=== PATIENT | male | born 1945 | race Caucasian/White ===

== ENCOUNTER 2017-02-20 15:28 | Observation (INO) | payer MEDICARE, OTHER ==
[2017-02-20] MEDS ORDERED: NITROGLYCERIN OINT 1 INCH/GM PACKET TOPICAL STA (15:49)
[2017-02-20] MEDS ORDERED: ASPIRIN 81 MG PO STA (15:49)
--- NOTE | 2017-02-20 15:54 | ED ---
General Adult HPI - General Chief complaint: Chest Pain Stated complaint: SOB/Chest heaviness Time Seen by Provider: 02/20/17 15:30 Source: patient, RN notes reviewed Mode of arrival: wheelchair Limitations: no limitations - History of Present Illness Initial comments: This is a 71-year-old male who presents to the emergency department complaining of intermittent chest pain with shortness of breath over the last month. Patient states it doesn't appear to come on with exertion however he continues to get it and he becomes quite short of breath. Patient states at times lying flat seems to make it worse. Patient denies any diaphoresis patient denies any nausea vomiting. Patient denies any recent fever chills or cough. Patient states he has been on some recent travel but he wears compression stockings and has no calf pain or any swelling or edema in his legs. Patient denies any abdominal pain patient denies nausea vomiting diarrhea. Patient denies any patient denies numbness weakness. Patient denies lightheadedness dizziness or syncopal episode. - Related Data Home Medications Medication Instructions Recorded Confirmed Gabapentin [Neurontin] 300 mg PO DAILY 07/05/14 02/20/17 Pantoprazole Sodium 40 mg PO HS 07/05/14 02/20/17 Albuterol Inhaler [Ventolin Hfa 1 - 2 puff INHALATION RT-QID PRN 02/20/17 Inhaler] Atorvastatin Calcium [Lipitor] 10 mg PO HS 02/20/17 02/20/17 Cholecalciferol [Vitamin D3] 5,000 unit PO DAILY 02/20/17 02/20/17 Fluticasone Nasal [place] [Flonase 1 spray EA NOSTRIL BID PRN 02/20/17 02/20/17 Nasal [place]] Metoprolol Succinate [Toprol XL] 50 mg PO DAILY 02/20/17 02/20/17 Rivaroxaban [Xarelto] 15 mg PO HS 02/20/17 02/20/17 Timolol 0.5% Ophth Soln [Timoptic 1 drop BOTH EYES BID 02/20/17 02/20/17 0.5% Ophth Soln] glipiZIDE [Glucotrol] 5 mg PO AC-BID 02/20/17 02/20/17 Allergies Allergy/AdvReac Type Severity Reaction Status Date / Time codeine Allergy PROBLEMS Verified 02/20/17 16:13 WITH BLADDER Review of Systems ROS Statement: Those systems with pertinent positive or pertinent negative responses have been documented in the HPI. ROS Other: All systems not noted in ROS Statement are negative. Past Medical History Past Medical History: Diabetes Mellitus, GERD/Reflux, Hyperlipidemia Additional Past Medical History / Comment(s): NEUROPATHY History of Any Multi-Drug Resistant Organisms: None Reported Past Surgical History: Hernia Repair, Joint Replacement, Orthopedic Surgery Additional Past Surgical History / Comment(s): NECK SURGERY X4, TOTAL LEFT KNEE , CTR BOTH HANDS Past Anesthesia/Blood Transfusion Reactions: No Reported Reaction Past Psychological History: No Psychological Hx Reported Smoking Status: Former smoker General Exam - General Exam Comments Initial Comments: GENERAL: Patient is well-developed and well-nourished. Patient is nontoxic and well- hydrated and is in mild distress. ENT: Neck is soft and supple. No significant lymphadenopathy is noted. Oropharynx is clear. Moist mucous membranes. Neck has full range of motion without eliciting any pain. EYES: The sclera were anicteric and conjunctiva were pink and moist. Extraocular movements were intact and pupils were equal round and reactive to light. Eyelids were unremarkable. PULMONARY: Unlabored respirations. Good breath sounds bilaterally. No audible rales rhonchi or wheezing was noted. CARDIOVASCULAR: There is a regular rate and rhythm without any murmurs gallops or rubs. ABDOMEN: Soft and nontender with normal bowel sounds. No palpable organomegaly was noted. There is no palpable pulsatile mass. SKIN: Skin is clear with no lesions or rashes and otherwise unremarkable. NEUROLOGIC: Patient is alert and oriented x3. Cranial nerves II through XII are grossly intact. Motor and sensory are also intact. Normal speech, volume and content. Symmetrical smile. MUSCULOSKELETAL: Normal extremities with adequate strength and full range of motion. No lower extremity swelling or edema. No calf tenderness. LYMPHATICS: No significant lymphadenopathy is noted PSYCHIATRIC: Normal psychiatric evaluation. Limitations: no limitations Course Vital Signs 02/20/17 02/20/17 15:29 16:32 Temperature 97.5 F L Pulse Rate 68 79 Respiratory 18 20 Rate Blood Pressure 147/87 142/84 O2 Sat by Pulse 95 98 Oximetry Medical Decision Making - Medical Decision Making EKG shows a sinus rhythm with occasional PVC at 60 bpm FL interval is 196 QRS is 94 QT interval 412 QTC is 438. Patient's EKG shows no ST segment elevation or depression. Chest x-ray shows no acute abnormality I spoke with Dr. Lewis he wanted me to admit the patient admitted the patient wrote admitting orders. I consult cardiology. - Lab Data Result diagrams: 02/20/17 16:05 02/20/17 16:05 Lab Results 02/20/17 02/20/17 02/20/17 Range/Units 16:05 16:05 16:05 WBC 5.5 (3.8-10.6) k/uL RBC 5.50 (4.30-5.90) m/uL Hgb 16.8 (13.0-17.5) gm/dL Hct 48.4 (39.0-53.0) % MCV 88.0 (80.0-100.0) fL MCH 30.6 (25.0-35.0) pg MCHC 34.8 (31.0-37.0) g/dL RDW 13.7 (11.5-15.5) % Plt Count 179 (150-450) k/uL Neutrophils % 56 % Lymphocytes % 31 % Monocytes % 8 % Eosinophils % 2 % Basophils % 1 % Neutrophils # 3.1 (1.3-7.7) k/uL Lymphocytes # 1.7 (1.0-4.8) k/uL Monocytes # 0.4 (0-1.0) k/uL Eosinophils # 0.1 (0-0.7) k/uL Basophils # 0.0 (0-0.2) k/uL PT (9.0-12.0) sec INR (<1.2) APTT (22.0-30.0) sec Sodium 140 (137-145) mmol/L Potassium 4.0 (3.5-5.1) mmol/L Chloride 104 (98-107) mmol/L Carbon Dioxide 23 (22-30) mmol/L Anion Gap 13 mmol/L BUN 18 (9-20) mg/dL Creatinine 1.30 H (0.66-1.25) mg/dL Est GFR (MDRD) Af Amer >60 (>60 ml/min/1.73 sqM) Est GFR (MDRD) Non-Af 54 (>60 ml/min/1.73 sqM) Glucose 92 (74-99) mg/dL Calcium 9.7 (8.4-10.2) mg/dL Magnesium 1.7 (1.6-2.3) mg/dL Total Bilirubin 0.9 (0.2-1.3) mg/dL AST 31 (17-59) U/L ALT 37 (21-72) U/L Alkaline Phosphatase 61 (38-126) U/L Total Creatine Kinase 182 H (55-170) U/L CK-MB (CK-2) 1.8 (0.0-2.4) ng/mL CK-MB (CK-2) Rel Index 1.0 Troponin I <0.012 (0.000-0.034) ng/mL Total Protein 7.4 (6.3-8.2) g/dL Albumin 4.4 (3.5-5.0) g/dL 02/20/17 Range/Units 16:05 WBC (3.8-10.6) k/uL RBC (4.30-5.90) m/uL Hgb (13.0-17.5) gm/dL Hct (39.0-53.0) % MCV (80.0-100.0) fL MCH (25.0-35.0) pg MCHC (31.0-37.0) g/dL RDW (11.5-15.5) % Plt Count (150-450) k/uL Neutrophils % % Lymphocytes % % Monocytes % % Eosinophils % % Basophils % % Neutrophils # (1.3-7.7) k/uL Lymphocytes # (1.0-4.8) k/uL Monocytes # (0-1.0) k/uL Eosinophils # (0-0.7) k/uL Basophils # (0-0.2) k/uL PT 12.1 H (9.0-12.0) sec INR 1.2 H (<1.2) APTT 27.7 (22.0-30.0) sec Sodium (137-145) mmol/L Potassium (3.5-5.1) mmol/L Chloride (98-107) mmol/L Carbon Dioxide (22-30) mmol/L Anion Gap mmol/L BUN (9-20) mg/dL Creatinine (0.66-1.25) mg/dL Est GFR (MDRD) Af Amer (>60 ml/min/1.73 sqM) Est GFR (MDRD) Non-Af (>60 ml/min/1.73 sqM) Glucose (74-99) mg/dL Calcium (8.4-10.2) mg/dL Magnesium (1.6-2.3) mg/dL Total Bilirubin (0.2-1.3) mg/dL AST (17-59) U/L ALT (21-72) U/L Alkaline Phosphatase (38-126) U/L Total Creatine Kinase (55-170) U/L CK-MB (CK-2) (0.0-2.4) ng/mL CK-MB (CK-2) Rel Index Troponin I (0.000-0.034) ng/mL Total Protein (6.3-8.2) g/dL Albumin (3.5-5.0) g/dL Disposition Clinical Impression: Chest pain Disposition: ADMITTED IP TO THIS HOSP Referrals: Ck Lewis MD [Primary Care Provider] - 1-2 days Time of Disposition: 17:21
[2017-02-20 16:19] LABS: Basophils % (A) 1 %; CH 30.3; CHCM 34.5; Eosinophils # (A) 0.1 k/uL (0-0.7); Eosinophils % (A) 2 %; HCT 48.4 % (39.0-53.0); HGB 16.8 gm/dL (13.0-17.5); Luc # (Auto) 0.17; Luc % (Auto) 3; Lymphocytes # (A) 1.7 k/uL (1.0-4.8); Lymphocytes % (A) 31 %; MCH 30.6 pg (25.0-35.0); MCHC 34.8 g/dL (31.0-37.0); Mean Platelet Volume 6.9; Monocytes # (A) 0.4 k/uL (0-1.0); Monocytes % (A) 8 %; Neutrophils # (A) 3.1 k/uL (1.3-7.7); Neutrophils % (A) 56 %; RDW 13.7 % (11.5-15.5); WBC 5.5 k/uL (3.8-10.6); WBC (Perox) 5.58
--- NOTE | 2017-02-20 16:30 | XR ---
EXAMINATION TYPE: XR chest 2V DATE OF EXAM: 02/20/2017 COMPARISON: NONE HISTORY: Dyspnea. TECHNIQUE: Frontal and lateral views of the chest are obtained. FINDINGS: Chronic emphysematous change with left basilar scarring or atelectasis is felt present on f rontal view. There is no focal air space opacity, pleural effusion, or pneumothorax seen. The cardia c silhouette size is mildly enlarged. Anterior fusion plate lower cervical spine is partially imaged. There is ossific fragmentation and widening at the right acromioclavicular joint presumed chronic in etiology. IMPRESSION: Mild cardiomegaly and chronic changes without suspicious acute pulmonary process.
[2017-02-20 16:31] LABS: INR 1.2 (<1.2); Partial Thromboplastin Time 27.7 sec (22.0-30.0); Prothrombin Time 12.1 sec (9.0-12.0)
[2017-02-20 16:42] LABS: ALT 37 U/L (21-72); AST 31 U/L (17-59); Alkaline Phosphatase 61 U/L (38-126); Anion Gap 13 mmol/L; Blood Urea Nitrogen 18 mg/dL (9-20); Calcium 9.7 mg/dL (8.4-10.2); Carbon Dioxide 23 mmol/L (22-30); Chloride 104 mmol/L (98-107); Glucose 92 mg/dL (74-99); Magnesium 1.7 mg/dL (1.6-2.3); Non-African American GFR(MDRD) 54 (>60 ml/min/1.73 sqM); Sodium 140 mmol/L (137-145); Total Bilirubin 0.9 mg/dL (0.2-1.3); Total Protein 7.4 g/dL (6.3-8.2)
[2017-02-20 16:43] LABS: Creatine Kinase 182 U/L (55-170)
[2017-02-20 16:55] LABS: Creatine Kinase MB 1.8 ng/mL (0.0-2.4); Troponin I <0.012 ng/mL (0.000-0.034)
[2017-02-20] MEDS ORDERED: NITROGLYCERIN SL TABS 0.4 MG TAB SUBLINGUAL PRN (17:22)
[2017-02-20] MEDS ORDERED: FLUTICASONE 50MCG/SPRAY NASAL 16GM EA NOSTRIL PRN (19:58)
[2017-02-20 20:39] LABS: Glucose,Whole Blood 180 mg/dL (75-99)
[2017-02-20] MEDS: RIVAROXABAN 15 MG TAB PO SCH (21:17)
[2017-02-20] MEDS: ACETAMINOPHEN TAB 325 MG TAB PO PRN (21:17)
[2017-02-20] MEDS: TIMOLOL 0.5% OPHTH DROPS 5 ML BTL BOTH EYES SCH (21:17)
[2017-02-20] MEDS: PANTOPRAZOLE 40 MG TABLET PO SCH (21:17)
[2017-02-20 21:55] VITALS: BMI 33.5
[2017-02-20] MEDS: glipiZIDE 5 MG TAB PO SCH (21:56)
[2017-02-20] MEDS: ATORVASTATIN 10 MG TAB PO SCH (21:57)
[2017-02-20 22:38] LABS: Creatine Kinase 196 U/L (55-170)
[2017-02-20 22:51] LABS: Creatine Kinase MB 1.6 ng/mL (0.0-2.4); Troponin I <0.012 ng/mL (0.000-0.034)
[2017-02-21] MEDS: NITROGLYCERIN OINT 1 INCH/GM PACKET TOPICAL SCH ×4 (02:59→18:10)
[2017-02-21 04:26] LABS: Cholesterol 126 mg/dL (<200); HDL Cholesterol 35 mg/dL (40-60)
[2017-02-21 04:56] LABS: Creatine Kinase 209 U/L (55-170)
[2017-02-21 05:08] LABS: Creatine Kinase MB 1.5 ng/mL (0.0-2.4); Troponin I <0.012 ng/mL (0.000-0.034)
[2017-02-21 07:01] LABS: Glucose,Whole Blood 102 mg/dL (75-99)
--- NOTE | 2017-02-21 10:57 | P.CRDCN ---
History of Present Illness Consult date: 02/21/17 Consult reason: chest pain, shortness of breath History of present illness: This is a 71-year-old male with a history of paroxysmal atrial fibrillation on Xarelto and Toprol. He also has a history of hyperlipidemia, diabetes, hypertension and chronic sinus congestion. He sees Dr. Hwang as an outpatient. He was last seen in September 2016. This visit was in follow-up for recent hospital admission at [facility] where he underwent cardiac catheterization. Catheterization report was reviewed and shows mild 3 vessel coronary artery disease with normal left ventricular function. Left main coronary artery is normal size vessel and free of stenosis, LAD and circumflex are calcified and show mild atherosclerotic plaque, both are nonobstructing. Right coronary artery is large dominant vessel that shows mild atherosclerotic plaque. Patient presented to the emergency room with complaints of chest pain and pressure times one month. The pain is associated with shortness of breath and radiation into the neck. He states it seems he has a hard time catching his breath. He states he was recently on vacation in [place] and was seen in an urgent care there where they did a CAT scan of his chest that showed a pulmonary nodule. He has requested those reports to be sent to his PCP. He has yet to receive them. The pain shortness of breath is when the patient is sitting down watching TV or at his computer. When he gets up to walk or do housework the pain and shortness of breath subsided. He states he uses a treadmill daily walks at a pace of 2.5 miles per hour and the pain and shortness of breath do not come while he is exercising. Hemoglobin 16.8, INR 1.2, potassium 4.0, magnesium 1.7, BUS and 18, creatinine 1.3, HDL 35, LDL 61, triglycerides 152 with a total cholesterol of 126, troponins are negative 3 and d-dimer 0.17. EKG reveals normal sinus mechanism with 1 PVC. Chest x-ray shows mild cardiomegaly with chronic changes without suspicious acute cardiopulmonary process. Review of Systems REVIEW OF SYSTEMS: Patient denies any chest discomfort at this time. No shortness of breath at this time. No diaphoresis. He denies headache, dizziness , blurred vision, double vision. No dyspnea on exertion. Patient denies any stomach discomfort. No nausea, vomiting. No hematochezia. No hematemesis. Denies any black stools or blood in his stools. No syncope. No palpitations. No cough. No recent fever or chills. Denies dysuria or hematuria. No muscle weakness or numbness. Past Medical History Past Medical History: Atrial Fibrillation, Diabetes Mellitus, GERD/Reflux, Hyperlipidemia, Osteoarthritis (OA), Pneumonia Additional Past Medical History / Comment(s): NEUROPATHY History of Any Multi-Drug Resistant Organisms: None Reported Past Surgical History: Adenoidectomy, Hernia Repair, Joint Replacement, Orthopedic Surgery, Tonsillectomy Additional Past Surgical History / Comment(s): NECK SURGERY X4, TOTAL LEFT KNEE , CTR BOTH HANDS, cataract removal bilat., cardiac cath 03/2016 Past Anesthesia/Blood Transfusion Reactions: No Reported Reaction Past Psychological History: No Psychological Hx Reported Smoking Status: Former smoker Past Alcohol Use History: None Reported Past Drug Use History: None Reported - Past Family History Father Family Medical History: Pulmonary Embolus Additional Family Medical History / Comment(s): from PE in his 50s Mother Family Medical History: Coronary Artery Disease (CAD), Hypertension Medications and Allergies Home Medications Medication Instructions Recorded Confirmed Type Gabapentin [Neurontin] 300 mg PO DAILY 07/05/14 02/20/17 History Pantoprazole Sodium 40 mg PO HS 07/05/14 02/20/17 History Albuterol Inhaler [Ventolin Hfa 1 - 2 puff INHALATION RT-QID PRN 02/20/17 History Inhaler] Atorvastatin Calcium [Lipitor] 10 mg PO HS 02/20/17 02/20/17 History Cholecalciferol [Vitamin D3] 5,000 unit PO DAILY 02/20/17 02/20/17 History Fluticasone Nasal [place] [Flonase 1 spray EA NOSTRIL BID PRN 02/20/17 02/20/17 History Nasal [place]] Metoprolol Succinate [Toprol XL] 50 mg PO DAILY 02/20/17 02/20/17 History Rivaroxaban [Xarelto] 15 mg PO HS 02/20/17 02/20/17 History Timolol 0.5% Ophth Soln [Timoptic 1 drop BOTH EYES BID 02/20/17 02/20/17 History 0.5% Ophth Soln] glipiZIDE [Glucotrol] 5 mg PO AC-BID 02/20/17 02/20/17 History Allergies Allergy/AdvReac Type Severity Reaction Status Date / Time codeine Allergy PROBLEMS Verified 02/20/17 21:25 WITH BLADDER Physical Exam Vitals: Vital Signs Temp Pulse Pulse Pulse Resp BP BP 02/21/17 08:00 97.5 F L 56 L 18 113/65 02/21/17 04:00 50 L 18 02/21/17 03:56 97.7 F 58 L 18 94/64 02/21/17 00:00 47 L 18 02/20/17 23:47 97.6 F 52 L 18 113/65 02/20/17 20:00 50 L 18 02/20/17 18:54 98.2 F 57 L 18 133/67 02/20/17 18:08 97.7 F 58 L 24 112/61 02/20/17 17:34 97.0 F L 56 L 20 108/72 02/20/17 16:32 79 20 142/84 02/20/17 15:29 97.5 F L 68 18 147/87 Pulse Ox 02/21/17 08:00 96 02/21/17 04:00 02/21/17 03:56 97 02/21/17 00:00 02/20/17 23:47 98 02/20/17 20:00 02/20/17 18:54 95 02/20/17 18:08 94 L 02/20/17 17:34 96 02/20/17 16:32 98 02/20/17 15:29 95 Intake and Output 02/20/17 02/21/17 02/21/17 22:59 06:59 14:59 Intake Total 690 100 Balance 690 100 Intake: Oral 690 100 Other: Voiding Method Toilet Toilet # Voids 2 2 Weight 95.8 kg GENERAL: This is a 71-year-old male in no apparent distress at the time of my examination. HEENT: Head is atraumatic, normocephalic. Pupils are equal, round. Sclerae anicteric. Conjunctivae are clear. Mucous membranes of the mouth are moist. Neck is supple. There is no jugular venous distention. No carotid bruit is heard. LUNGS: Clear to auscultation, no wheezes, rhonchi or rales. No chest wall tenderness is noted on palpation or with deep breathing. HEART: Regular rate and rhythm without murmurs, rubs or gallops. S1 and S2 heard. ABDOMEN: Soft, nontender. Bowel sounds are heard. No organomegaly noted. EXTREMITIES: 2+ peripheral pulses with no evidence of peripheral edema and no calf tenderness noted]. NEUROLOGIC: Patient is awake, alert and oriented x3. Results 02/20/17 16:05 02/20/17 16:05 Cardiac Enzymes 02/20/17 02/20/17 02/20/17 Range/Units 16:05 16:05 21:59 AST 31 (17-59) U/L CK-MB (CK-2) 1.8 1.6 (0.0-2.4) ng/mL Troponin I <0.012 <0.012 (0.000-0.034) ng/mL 02/21/17 Range/Units 03:43 AST (17-59) U/L CK-MB (CK-2) 1.5 (0.0-2.4) ng/mL Troponin I <0.012 (0.000-0.034) ng/mL Coagulation 02/20/17 Range/Units 16:05 PT 12.1 H (9.0-12.0) sec APTT 27.7 (22.0-30.0) sec Lipids 02/21/17 Range/Units 03:43 Triglycerides 152 H (<150) mg/dL Cholesterol 126 (<200) mg/dL HDL Cholesterol 35 L (40-60) mg/dL CBC 02/20/17 Range/Units 16:05 WBC 5.5 (3.8-10.6) k/uL RBC 5.50 (4.30-5.90) m/uL Hgb 16.8 (13.0-17.5) gm/dL Hct 48.4 (39.0-53.0) % Plt Count 179 (150-450) k/uL Comprehensive Metabolic Panel 02/20/17 Range/Units 16:05 Sodium 140 (137-145) mmol/L Potassium 4.0 (3.5-5.1) mmol/L Chloride 104 (98-107) mmol/L Carbon Dioxide 23 (22-30) mmol/L BUN 18 (9-20) mg/dL Creatinine 1.30 H (0.66-1.25) mg/dL Glucose 92 (74-99) mg/dL Calcium 9.7 (8.4-10.2) mg/dL AST 31 (17-59) U/L ALT 37 (21-72) U/L Alkaline Phosphatase 61 (38-126) U/L Total Protein 7.4 (6.3-8.2) g/dL Albumin 4.4 (3.5-5.0) g/dL Current Medications Generic Name Dose Route Start Last Admin Trade Name Freq PRN Reason Stop Dose Admin Acetaminophen 650 mg 02/20/17 20:01 02/20/17 21:17 Tylenol Tab PO 650 mg Q4HR PRN Administration Fever and/ or Mild Pain Albuterol Sulfate 2.5 mg 02/20/17 19:58 Ventolin Nebulized INHALATION RT-QID PRN Shortness Of Breath Aspirin 325 mg 02/21/17 09:00 Aspirin PO DAILY [facility] Atorvastatin Calcium 10 mg 02/20/17 21:00 02/20/17 21:57 Lipitor PO 10 mg HS REYNA Administration Cholecalciferol 5,000 unit 02/21/17 09:00 Vitamin D3 PO DAILY [facility] Fluticasone Propionate 1 spray 02/20/17 19:58 Flonase Nasal [place] EA NOSTRIL BID PRN Allergy Symptoms Gabapentin 300 mg 02/21/17 09:00 Neurontin PO DAILY [facility] Glipizide 5 mg 02/20/17 20:00 02/20/17 21:56 Glucotrol PO 5 mg AC-BID [facility] Administration Metoprolol Succinate 50 mg 02/21/17 09:00 Toprol Xl PO DAILY [facility] Nitroglycerin 1 inch 02/21/17 00:00 02/21/17 06:25 Nitro-Bid Oint TOPICAL Not Given Q6HR [facility] Nitroglycerin 0.4 mg 02/20/17 17:22 Nitrostat SUBLINGUAL Q5M PRN Chest Pain Pantoprazole Sodium 40 mg 02/20/17 21:00 02/20/17 21:17 Protonix PO 40 mg HS REYNA Administration Rivaroxaban 15 mg 02/20/17 21:00 02/20/17 21:17 Xarelto PO 15 mg HS REYNA Administration Timolol Maleate 1 drops 02/20/17 21:00 02/20/17 21:17 Timoptic BOTH EYES 1 drops BID REYNA Administration Intake and Output 02/20/17 02/21/17 02/21/17 22:59 06:59 14:59 Intake Total 690 100 Balance 690 100 Intake: Oral 690 100 Other: Voiding Method Toilet Toilet # Voids 2 2 Weight 95.8 kg 02/20/17 16:05 02/20/17 16:05 - EKG Interpretation EKG: sinus rhythm (PVC), normal QRS, normal ST/T Assessment and Plan Plan: ASSESSMENT 1. Stable multivessel CAD with complaints of atypical chest pain. 2. Chronic paroxysmal atrial fibrillation on anticoagulation with Xarelto. 3. Increasing shortness of breath at rest with recent history of pulmonary nodule on computed tomography scan [id number]. 4. Diabetes mellitus 5. Essential hypertension 6. Dyslipidemia PLAN We will order an echocardiogram to assess left ventricular function. Recommend pulmonary consultation at this time. This does not appear to be cardiac related. We recommend no further cardiac workup at this time. The patient can follow-up with Dr. Ybarra as needed. We thank you for this consultation and allowing us to participate in this patient's care while he is hospitalized. Nurse Practitioner note has been reviewed, I agree with a documented findings and plan of care. Patient was seen and examined.
[2017-02-21] MEDS: ASPIRIN 325 MG TAB PO SCH (11:33)
[2017-02-21] MEDS: GABAPENTIN 300 MG CAP PO SCH (11:33)
[2017-02-21] MEDS: CHOLECALCIFEROL 1,000 UNIT TAB PO SCH (11:33)
[2017-02-21] MEDS: METOPROLOL SUCCINATE (ER) 50 MG TAB.ER.24H PO SCH (11:33)
[2017-02-21] MEDS: glipiZIDE 5 MG TAB PO SCH ×2 (11:33→18:07)
[2017-02-21] MEDS: TIMOLOL 0.5% OPHTH DROPS 5 ML BTL BOTH EYES SCH ×2 (11:34→20:21)
[2017-02-21 12:07] LABS: Glucose,Whole Blood 173 mg/dL (75-99)
[2017-02-21] MEDS: ALBUTEROL NEBULIZED 2.5 MG/3 ML INHALATION PRN ×3 (12:17→21:09)
--- NOTE | 2017-02-21 15:11 | P.HPIM ---
History of Present Illness H&P Date: 02/21/17 Chief Complaint: Shortness of breath with chest tightness This is a 71-year-old male with a known history of diabetes mellitus type 2, atrial fibrillation, GERD, hyperlipidemia, chronic kidney disease and coronary artery disease. Patient also has had cervical spine surgery. Patient presents to the emergency room with complaints of chest tightness and shortness of breath especially with laying flat for the past month. Patient reports that he is had a computed tomography scan in [place] that had reported a lung nodule. Pulmonary service has been consulted. Patient is also been seen by cardiology and they're recommending patient be seen by pulmonary service. Troponins were negative 3 sets d-dimer was negative. An chest x-ray showed no acute changes. She reports that that he has a sticking sensation in his throat when he goes to swallow also when he lays flat on his back. He denies any fevers chills or sweats. Denies any nausea or vomiting. Denies any bowel movement changes or urinary symptoms. EKG had shown a sinus rhythm with PVCs Review of Systems Please refer to HPI otherwise unremarkable Past Medical History Past Medical History: Atrial Fibrillation, Diabetes Mellitus, GERD/Reflux, Hyperlipidemia, Osteoarthritis (OA), Pneumonia Additional Past Medical History / Comment(s): NEUROPATHY History of Any Multi-Drug Resistant Organisms: None Reported Past Surgical History: Adenoidectomy, Hernia Repair, Joint Replacement, Orthopedic Surgery, Tonsillectomy Additional Past Surgical History / Comment(s): NECK SURGERY X4, TOTAL LEFT KNEE , CTR BOTH HANDS, cataract removal bilat., cardiac cath 03/2016 Past Anesthesia/Blood Transfusion Reactions: No Reported Reaction Past Psychological History: No Psychological Hx Reported Smoking Status: Former smoker Past Alcohol Use History: None Reported Past Drug Use History: None Reported - Past Family History Father Family Medical History: Pulmonary Embolus Additional Family Medical History / Comment(s): from PE in his 50s Mother Family Medical History: Coronary Artery Disease (CAD), Hypertension Medications and Allergies Home Medications Medication Instructions Recorded Confirmed Type Gabapentin [Neurontin] 300 mg PO DAILY 07/05/14 02/20/17 History Pantoprazole Sodium 40 mg PO HS 07/05/14 02/20/17 History Albuterol Inhaler [Ventolin Hfa 1 - 2 puff INHALATION RT-QID PRN 02/20/17 History Inhaler] Atorvastatin Calcium [Lipitor] 10 mg PO HS 02/20/17 02/20/17 History Cholecalciferol [Vitamin D3] 5,000 unit PO DAILY 02/20/17 02/20/17 History Fluticasone Nasal [place] [Flonase 1 spray EA NOSTRIL BID PRN 02/20/17 02/20/17 History Nasal [place]] Metoprolol Succinate [Toprol XL] 50 mg PO DAILY 02/20/17 02/20/17 History Rivaroxaban [Xarelto] 15 mg PO HS 02/20/17 02/20/17 History Timolol 0.5% Ophth Soln [Timoptic 1 drop BOTH EYES BID 02/20/17 02/20/17 History 0.5% Ophth Soln] glipiZIDE [Glucotrol] 5 mg PO AC-BID 02/20/17 02/20/17 History Allergies Allergy/AdvReac Type Severity Reaction Status Date / Time codeine Allergy PROBLEMS Verified 02/20/17 21:25 WITH BLADDER Physical Exam Vitals: Vital Signs Temp Pulse Pulse Pulse Resp BP BP 02/21/17 12:26 51 L 14 02/21/17 12:21 02/21/17 12:18 51 L 14 02/21/17 12:00 97.8 F 60 18 125/78 02/21/17 08:00 97.5 F L 56 L 18 113/65 02/21/17 04:00 50 L 18 02/21/17 03:56 97.7 F 58 L 18 94/64 02/21/17 00:00 47 L 18 02/20/17 23:47 97.6 F 52 L 18 113/65 02/20/17 20:00 50 L 18 02/20/17 18:54 98.2 F 57 L 18 133/67 02/20/17 18:08 97.7 F 58 L 24 112/61 02/20/17 17:34 97.0 F L 56 L 20 108/72 02/20/17 16:32 79 20 142/84 02/20/17 15:29 97.5 F L 68 18 147/87 Pulse Ox 02/21/17 12:26 02/21/17 12:21 95 02/21/17 12:18 02/21/17 12:00 97 02/21/17 08:00 96 02/21/17 04:00 02/21/17 03:56 97 02/21/17 00:00 02/20/17 23:47 98 02/20/17 20:00 02/20/17 18:54 95 02/20/17 18:08 94 L 02/20/17 17:34 96 02/20/17 16:32 98 02/20/17 15:29 95 Intake and Output 02/21/17 02/21/17 02/21/17 06:59 14:59 22:59 Intake Total 100 Balance 100 Intake: Oral 100 Other: Voiding Method Toilet Toilet # Voids 2 Head normocephalic Neck supple Lungs clear to auscultation bilaterally no wheezing or crackles Heart regular rate and rhythm S1-S2, no rub or gallop Abdomen is soft nontender nondistended positive bowel sounds no hepatosplenomegaly Extremities no edema Neuro alert and orientated to 3 Results CBC & Chem 7: 02/20/17 16:05 02/20/17 16:05 Labs: Abnormal Lab Results - Last 24 Hours (Table) 02/20/17 02/20/17 02/20/17 Range/Units 16:05 16:05 16:05 PT 12.1 H (9.0-12.0) sec INR 1.2 H (<1.2) Creatinine 1.30 H (0.66-1.25) mg/dL POC Glucose (mg/dL) (75-99) mg/dL Total Creatine Kinase 182 H (55-170) U/L Triglycerides (<150) mg/dL HDL Cholesterol (40-60) mg/dL 02/20/17 02/20/17 02/21/17 Range/Units 20:34 21:59 03:43 PT (9.0-12.0) sec INR (<1.2) Creatinine (0.66-1.25) mg/dL POC Glucose (mg/dL) 180 H (75-99) mg/dL Total Creatine Kinase 196 H 209 H (55-170) U/L Triglycerides (<150) mg/dL HDL Cholesterol (40-60) mg/dL 02/21/17 02/21/17 02/21/17 Range/Units 03:43 07:00 11:59 PT (9.0-12.0) sec INR (<1.2) Creatinine (0.66-1.25) mg/dL POC Glucose (mg/dL) 102 H 173 H (75-99) mg/dL Total Creatine Kinase (55-170) U/L Triglycerides 152 H (<150) mg/dL HDL Cholesterol 35 L (40-60) mg/dL Thrombosis Risk Factor Assmnt - Choose All That Apply Any of the Below Risk Factors Present?: Yes Each Factor Represents 1 point: Obesity (BMI >25) Other Risk Factors: Yes Each Risk Factor Represents 2 Points: Age 61-74 years Other congenital or acquired thrombophilia - If yes, enter type in comment: No Thrombosis Risk Factor Assessment Total Risk Factor Score: 3 Thrombosis Risk Factor Assessment Level: Moderate Risk Assessment and Plan Plan: 1. Shortness of breath with chest tightness and possible lung nodule noted on a CAT scan that was completed in [place]. We will try to get these CAT scan results. Pulmonary service has been consulted. Patient has been seen by cardiology and ruled out any cardiac causes contribute into his symptoms. Troponins were -3 sets. D-dimer negative. EKG sinus rhythm with PVCs. 2. Paroxysmal atrial fibrillation continue the Xarelto 3. History of hyperlipidemia 4. Diabetes mellitus type 2 continue glipizide and will add sliding scale coverage 5. History of a previous cervical spine surgery. DVT prophylaxis Xarelto Time with Patient: Greater than 30 (Greater than 50% of the total time spent in counseling and coordination of care.I performed an examination of the patient and discussed their management with the physician Development Specialist. I have reviewed the Physician Development Specialist's notes and agree with the documented findings and plan of care)
[2017-02-21] MEDS: ACETAMINOPHEN TAB 325 MG TAB PO PRN (16:51)
[2017-02-21 17:01] LABS: Glucose,Whole Blood 92 mg/dL (75-99)
[2017-02-21] MEDS: INSULIN LISPRO (humaLOG) 300 UNIT/3 ML VIAL SQ SCH ×2 (17:44→20:13)
[2017-02-21] MEDS: methylPREDNISolone 4 MG TAB TAPER PO SCH (18:07)
--- NOTE | 2017-02-21 19:31 | ECHOF ---
Referral Reason:chest pain MEASUREMENTS -------- HEIGHT: 165.1 cm WEIGHT: 95.7 kg BP: 113/65 RVIDd: 3.2 cm (< 3.3) IVSd: 1.0 cm (0.6 - 1.1) LVIDd: 3.8 cm (3.9 - 5.3) LVPWd: 1.1 cm (0.6 - 1.1) IVSs: 1.4 cm LVIDs: 3.2 cm LVPWs: 1.3 cm LA Diam: 1.4 cm (2.7 - 3.8) MV EXCURSION: 10.065 mm (> 18.000) MV EF SLOPE: 96 mm/s (70 - 150) EPSS: 0.3 cm MV E Durga: 0.66 m/s MV DecT: 153 ms MV A Durga: 0.81 m/s MV E/A Ratio: 0.82 RAP: 5.00 mmHg RVSP: 22.52 mmHg FINDINGS -------- Sinus rhythm. This was a technically adequate study. There is mild concentric left ventricular hypertrophy. Overall left ventricular systolic function is normal with, an EF between 55 - 60 %. The right ventricle is normal in size. The right atrial size is normal. There is mild aortic valve sclerosis. There is no evidence of aortic regurgitation. Mild mitral annular calcification present. No mitral regurgitation. Mild tricuspid regurgitation present. There is no evidence of pulmonary hypertension. The right ventricular systolic pressure, as measured by Doppler, is 22.52mmHg. There is no pulmonic regurgitation present. The aortic root size is normal. There is no pericardial effusion. CONCLUSIONS -------- 1. There is mild concentric left ventricular hypertrophy. 2. Overall left ventricular systolic function is normal with, an EF between 55 - 60 %. 3. There is mild aortic valve sclerosis. 4. Mild mitral annular calcification present. 5. No mitral regurgitation. 6. Mild tricuspid regurgitation present. 7. There is no evidence of pulmonary hypertension. 8. The right ventricular systolic pressure, as measured by Doppler, is 22.52mmHg. COLLAR BASTER: Tammy Caal RDCS
[2017-02-21 20:01] LABS: Glucose,Whole Blood 118 mg/dL (75-99)
[2017-02-21] MEDS: FLUTICASONE 50MCG/SPRAY NASAL 16GM EA NOSTRIL SCH (20:12)
[2017-02-21] MEDS: PANTOPRAZOLE 40 MG TABLET PO SCH (20:13)
[2017-02-21] MEDS: RIVAROXABAN 15 MG TAB PO SCH (20:13)
[2017-02-21] MEDS: ATORVASTATIN 10 MG TAB PO SCH (20:13)
[2017-02-21 20:37] LABS: Hemoglobin A1C 6.5 % (4.2-6.1)
[2017-02-22] MEDS: NITROGLYCERIN OINT 1 INCH/GM PACKET TOPICAL SCH ×3 (02:57→12:29)
[2017-02-22 06:45] LABS: Glucose,Whole Blood 158 mg/dL (75-99)
[2017-02-22 07:41] VITALS: RESP 16
[2017-02-22 08:10] LABS: Basophils % (A) 0 %; CH 31.2; CHCM 33.5; Eosinophils % (A) 0 %; HCT 53.4 % (39.0-53.0); HDW 2.54; HGB 16.9 gm/dL (13.0-17.5); Luc # (Auto) 0.05; Luc % (Auto) 1; Lymphocytes # (A) 0.7 k/uL (1.0-4.8); Lymphocytes % (A) 12 %; MCH 29.6 pg (25.0-35.0); MCHC 31.7 g/dL (31.0-37.0); Mean Platelet Volume 7.8; Monocytes # (A) 0.2 k/uL (0-1.0); Monocytes % (A) 4 %; Neutrophils # (A) 5.1 k/uL (1.3-7.7); Neutrophils % (A) 83 %; RBC 5.72 m/uL (4.30-5.90); RDW 15.1 % (11.5-15.5); WBC 6.1 k/uL (3.8-10.6); WBC (Perox) 6.03
[2017-02-22] MEDS: ALBUTEROL NEBULIZED 2.5 MG/3 ML INHALATION PRN ×2 (08:16→16:03)
[2017-02-22 08:19] LABS: MCV 93.4 fL (80.0-100.0)
[2017-02-22 08:28] LABS: ALT 30 U/L (21-72); AST 25 U/L (17-59); Alkaline Phosphatase 59 U/L (38-126); Anion Gap 15 mmol/L; Blood Urea Nitrogen 20 mg/dL (9-20); Calcium 9.5 mg/dL (8.4-10.2); Carbon Dioxide 18 mmol/L (22-30); Chloride 106 mmol/L (98-107); Glucose 148 mg/dL (74-99); Non-African American GFR(MDRD) 60 (>60 ml/min/1.73 sqM); Potassium 4.6 mmol/L (3.5-5.1); Sodium 139 mmol/L (137-145); Total Bilirubin 0.9 mg/dL (0.2-1.3); Total Protein 7.6 g/dL (6.3-8.2)
[2017-02-22] MEDS: CHOLECALCIFEROL 1,000 UNIT TAB PO SCH (08:47)
[2017-02-22] MEDS: GABAPENTIN 300 MG CAP PO SCH (08:48)
[2017-02-22] MEDS: METOPROLOL SUCCINATE (ER) 50 MG TAB.ER.24H PO SCH (08:48)
[2017-02-22] MEDS: methylPREDNISolone 4 MG TAB TAPER PO SCH (08:48)
[2017-02-22] MEDS: ASPIRIN 325 MG TAB PO SCH (08:48)
[2017-02-22] MEDS: glipiZIDE 5 MG TAB PO SCH (08:49)
[2017-02-22] MEDS: FLUTICASONE 50MCG/SPRAY NASAL 16GM EA NOSTRIL SCH (08:49)
[2017-02-22] MEDS: INSULIN LISPRO (humaLOG) 300 UNIT/3 ML VIAL SQ SCH ×2 (08:49→12:31)
[2017-02-22] MEDS: TIMOLOL 0.5% OPHTH DROPS 5 ML BTL BOTH EYES SCH (08:50)
[2017-02-22] MEDS ORDERED: LORATADINE 10 MG TAB PO SCH (09:00)
[2017-02-22 12:07] LABS: Glucose,Whole Blood 188 mg/dL (75-99)
[2017-02-22] MEDS: ACETAMINOPHEN TAB 325 MG TAB PO PRN (12:33)
--- NOTE | 2017-02-22 15:13 | P.PN ---
Progress Note - Text This is a pleasant 71-year-old gentleman with a known mild CAD, chronic A. fib, hypertension, dyslipidemia, presented to the hospital was atypical chest discomfort. The patient underwent a heart catheterization recently and it showed mild triple -vessel CAD. I'll follow-up with him today he seems to be asymptomatic and denies having any chest pain or discomfort. From the cardiac vascular standpoint overview, the patient can be discharged home.
--- NOTE | 2017-02-22 15:54 | P.DS ---
Providers Date of admission: 02/20/17 17:23 Attending physician: Ck Brice Consults: 02/20/17 17:22 Consult Physician Urgent Consulting Provider: [facility] Consult Reason/Comments: Chest pain Do you want consulting provider notified?: Yes 02/21/17 11:27 Consult Physician Routine Consulting Provider: Vivek Mena Consult Reason/Comments: shortness of breath Do you want consulting provider notified?: Yes Primary care physician: Ck Brice Hospital Course: Diagnoses on discharge: 1. Shortness of breath with chest tightness and lung nodule measuring 8 mm on the recent computed tomography scan done in [place]. Pulmonary service has been consulted. Patient has been seen by cardiology and ruled out any cardiac causes contribute into his symptoms. Troponins were -3 sets. D-dimer negative. EKG sinus rhythm with PVCs. Symptoms likely related to upper respiratory infection likely viral syndrome. 2. Paroxysmal atrial fibrillation continue the Xarelto 3. History of hyperlipidemia 4. Diabetes mellitus type 2 continue glipizide and will add sliding scale coverage 5. History of a previous cervical spine surgery. Hospital course: This is a 71-year-old male with a known history of diabetes mellitus type 2, atrial fibrillation, GERD, hyperlipidemia, chronic kidney disease and coronary artery disease. Patient also has had cervical spine surgery. Patient presents to the emergency room with complaints of chest tightness and shortness of breath especially with laying flat for the past month. Patient reports that he is had a computed tomography scan in [place] that had reported a lung nodule. Pulmonary service has been consulted. Patient is also been seen by cardiology and they're recommending patient be seen by pulmonary service. Troponins were negative 3 sets d-dimer was negative. An chest x-ray showed no acute changes. She reports that that he has a sticking sensation in his throat when he goes to swallow also when he lays flat on his back. He denies any fevers chills or sweats. Denies any nausea or vomiting. Denies any bowel movement changes or urinary symptoms. EKG had shown a sinus rhythm with PVCs Patient was evaluated by cardiology and pulmonary during this admission no intervention was recommended patient was cleared for discharge he will follow up with Dr. Brice within one week for further evaluation and treatment. He was given a prescription for Medrol Dosepak at the time of discharge otherwise he will continue on same medication as prior to admission. Plan - Discharge Summary New Discharge Prescriptions: New Acetaminophen Tab [Tylenol] 650 mg PO Q4HR PRN tab PRN Reason: Fever and/ or Mild Pain methylPREDNISolone Dose Pack [Medrol Dose Pack] 24 mg PO DAILY tab Continue Gabapentin [Neurontin] 300 mg PO DAILY Pantoprazole Sodium 40 mg PO HS glipiZIDE [Glucotrol] 5 mg PO AC-BID Rivaroxaban [Xarelto] 15 mg PO HS Cholecalciferol [Vitamin D3] 5,000 unit PO DAILY Atorvastatin Calcium [Lipitor] 10 mg PO HS Timolol 0.5% Ophth Soln [Timoptic 0.5% Ophth Soln] 1 drop BOTH EYES BID Fluticasone Nasal [place] [Flonase Nasal [place]] 1 spray EA NOSTRIL BID PRN PRN Reason: Allergy Symptoms Albuterol Inhaler [Ventolin Hfa Inhaler] 1 - 2 puff INHALATION RT-QID PRN PRN Reason: Shortness Of Breath Metoprolol Succinate [Toprol XL] 50 mg PO DAILY Discharge Medication List Gabapentin [Neurontin] 300 mg PO DAILY 07/05/14 [History] Pantoprazole Sodium 40 mg PO HS 07/05/14 [History] Albuterol Inhaler [Ventolin Hfa Inhaler] 1 - 2 puff INHALATION RT-QID PRN [History] Atorvastatin Calcium [Lipitor] 10 mg PO HS 02/20/17 [History] Cholecalciferol [Vitamin D3] 5,000 unit PO DAILY 02/20/17 [History] Fluticasone Nasal [place] [Flonase Nasal [place]] 1 spray EA NOSTRIL BID PRN [History] Metoprolol Succinate [Toprol XL] 50 mg PO DAILY 02/20/17 [History] Rivaroxaban [Xarelto] 15 mg PO HS 02/20/17 [History] Timolol 0.5% Ophth Soln [Timoptic 0.5% Ophth Soln] 1 drop BOTH EYES BID [History] glipiZIDE [Glucotrol] 5 mg PO AC-BID 02/20/17 [History] Acetaminophen Tab [Tylenol] 650 mg PO Q4HR PRN tab 02/22/17 [Rx] methylPREDNISolone Dose Pack [Medrol Dose Pack] 24 mg PO DAILY tab 02/22/17 [Rx ] Follow up Appointment(s)/Referral(s): Ck Brice MD [Primary Care Provider] - 1-2 days
[2017-02-22 15:56] VITALS: BP 123/68; TEMP 97.9
[2017-02-22 16:06] VITALS: PULSE 62
--- NOTE | 2017-02-22 16:40 | CONS ---
DATE OF SERVICE: 02/21/[address] Vivek Mena covering for Dr. Michael Correa. REASON FOR CONSULTATION: HISTORY OF PRESENT ILLNESS: Patient is a 71-year-old male with a history of atrial fibrillation. Patient has been doing a lot of traveling as of late; went out to [place] to see family and then from there drove to [place], helping with moving things up and down stairs and was very active. Toward the end of his trip he started to have some issues with associated abdominal pain and was seen in [place] and had a CT of the abdomen and pelvis which showed fatty liver, diverticulosis, hypodensities in the inferior left kidney and a pulmonary nodule in the left lung base. Patient also with a history of cardiac catheterization approximately a year ago which showed some coronary artery disease with normal left ventricular function. He had an echocardiogram done at this visit, and the results are still pending. Patient came in with complaints of chest pain described as a pressure across his chest which seems to radiate up into the neck. It is worse when the patient is lying down. Patient also with significant postnasal drainage which is acute on chronic. Patient does complain of a cough. Denies shortness of breath chronically; just seems to be when he is having that chest pressure; then it is more difficult to breathe. Patient does not have a wheeze. States that when he is active, he can walk on a treadmill at 2.5 miles per hour and does not have any shortness of breath or discomfort. He finds it is only when he is in a restful state or again when he is lying flat that this pain/pressure seems to be at its worst. The pain is reproducible. Past medical history is significant for: 1. Atrial fibrillation. 2. Diabetes mellitus. 3. GERD. 4. Hyperlipidemia. 5. Osteoarthritis. 6. Pneumonia. 7. Neuropathy. Past surgical history is significant for: 1. Adenoidectomy. 2. Hernia repair. 3. Joint replacement. 4. Orthopedic surgery. 5. Tonsillectomy. 6. Four neck surgeries. 7. Total left knee. 8. Bilateral cataracts. 9. Cardiac catheterization in March of 2016. ALLERGIES: CODEINE. Medications that patient is on at home include: 1. Neurontin 300 mg p.o. daily. 2. Protonix 40 mg p.o. at bedtime. 3. Ventolin inhaler 1 to 2 puffs q.i.d. p.r.n. 4. Lipitor 10 mg p.o. at bedtime. 5. Vitamin D3 5000 units p.o. daily. 6. Fluticasone nasal spray 1 spray each nostril b.i.d. p.r.n. 7. Toprol XL 50 mg p.o. daily. 8. Xarelto 15 mg p.o. at bedtime. 9. Timolol eyedrops 0.5% one drop both eyes b.i.d. 10. Glipizide 5 mg p.o. before meals b.i.d. FAMILY HISTORY: Father had a PE and in his 50s. Mother with coronary artery disease and hypertension. SOCIAL HISTORY: Patient has a history of smoking one pack a day for 10 years. Denies any alcohol intake. 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 REVIEW OF SYSTEMS: Negative for chills or fever. HEENT: Negative for any headaches. No acute visual changes. No difficulty hearing. Denies any recent nosebleeds. Does have nasal congestion. Denies sore throat. Does admit to difficulty swallowing at times; has to have water to help with swallowing. RESPIRATORY: Negative for any shortness of breath. Occasional cough. CARDIOVASCULAR: Positive for this chest pain/pressure that radiates to the neck and history of atrial fibrillation. GI: Negative for any further abdominal pain. Denies any nausea, vomiting, diarrhea or constipation. : Negative for any dysuria or hematuria. ENDOCRINE: Positive for history of diabetes mellitus. NEUROLOGIC: Patient does have neuropathy. MUSCULOSKELETAL: Positive for osteoarthritis. PSYCHIATRIC: No history of depression. PHYSICAL EXAM: GENERAL: Pleasant 71-year-old male who is calm and cooperative, in no acute distress. VITAL SIGNS: Temperature 98.4, heart rate 51, respiratory rate 16, blood pressure 99/56. Oxygen saturation is 97% on 2 L oxygen via nasal cannula. HEENT: Head is normocephalic, atraumatic. Pupils equal, round, reactive to light. Ears and nose: no discharge is noted. Mouth with moist mucous membranes. Mallampati class 2 to 3. Neck is short, thick, supple. Trachea is midline. LUNGS: Reduced air entry but clear. HEART: S1 and S2 are heard. Not tachycardic. Abdomen is soft. Bowel sounds are heard. EXTREMITIES: Trace edema bilaterally. NEUROLOGIC: Patient is awake and alert, oriented. LABS: White count is 5.5, hemoglobin 16.8, hematocrit 48.4 with a 179,000 platelets. Sodium 140, potassium 4.0, chloride 104, CO2 23. Anion gap 13. BUN 18 , creatinine 1.30. Glucose 92. Calcium 9.7. Magnesium 1.7. Total bilirubin 0.9, AST 31, ALT 37, alkaline phosphatase 61. Total protein 7.4. Albumin 4.4. Triglycerides 152, cholesterol 126, LDL 61, HDL 35. IMAGING: Chest x-ray shows mild cardiomegaly and chronic changes without suspicious acute pulmonary process. IMPRESSION: 1. Chest pain and pressure which is reproducible; possible costochondritis. 2. Atrial fibrillation history. Patient is on Xarelto. 3. History of hyperlipidemia. 4. Diabetes mellitus, not insulin-dependent. PLAN: Will check respiratory virus panel via nasal swab. Will continue Flonase 1 nasal spray b.i.d., add Claritin 10 mg daily, add a Medrol-Dosepak, check a BNP, and if the BNP is normal, would recommend starting some IV fluids. Patient should be followed up in the pulmonary clinic; should see Dr. Correa for further pulmonary workup and history of this pulmonary nodule. Continue bronchodilators p.r.n. Continue home medications. Continue GI and DVT prophylaxis. We will follow patient closely with you, making further changes as necessary. Thank you for the consultation. ROSCOE
--- NOTE | 2017-02-23 09:01 | PN ---
DATE OF SERVICE: 02/22/2017 He has been hemodynamically stable. He has less chest pain and shortness of breath. On physical examination his vitals are stable. He is afebrile. His chest is clear. Cardiovascular system reveals an S1, S2. Abdomen is soft. There is no pedal edema. IMPRESSION: 1. Chest pain and tightness which may be related to asthma with exacerbation. 2. Costochondritis. Patient is symptomatically better with Medrol Dosepak and conservative workup. 3. Atrial fibrillation. 4. Recent cardiac cath. At this point in time from a pulmonary standpoint, I agree with possible discharge planning with close outpatient follow up. He will need physiological testing and possible ( ) oxide in his ( ) as well. His prognosis at this time is fair. He was counseled regarding his condition and this approach. ROSCOE
== END 2017-02-22 16:31 | disposition home or self-care (01) ==
LOC: EC 15:28 → 3OBS 17:23
PROVIDERS: ADMIT Internal Medicine; ATTEND Internal Medicine
DX: R06.02 Shortness of breath (principal); R07.89 Other chest pain; R91.1 Solitary pulmonary nodule; I25.10 Atherosclerotic heart disease of native coronary artery without angina pectoris; I48.0 Paroxysmal atrial fibrillation; I48.2 Chronic atrial fibrillation; Z79.01 Long term (current) use of anticoagulants; E78.5 Hyperlipidemia, unspecified; I10 Essential (primary) hypertension; R09.81 Nasal congestion; E11.40 Type 2 diabetes mellitus with diabetic neuropathy, unspecified; K21.9 Gastro-esophageal reflux disease without esophagitis; M19.90 Unspecified osteoarthritis, unspecified site; Z79.899 Other long term (current) drug therapy; Z79.84 Long term (current) use of oral hypoglycemic drugs; Z88.5 Allergy status to narcotic agent; Z87.891 Personal history of nicotine dependence; Z87.01 Personal history of pneumonia (recurrent)
CPT/HCPCS: 99285; 36415; 94640 ×4; 94760; 93005; 93306; 85379; 83880; 80061; 80053 ×2; 83036; 82550 ×2; 82553 ×2; 83735; 84484 ×2; 85025 ×2; 85610; 85730; 71020; G0378 ×3; J7509 ×2

== ENCOUNTER → 2017-03-11 | Outpatient (CLI) | payer MEDICARE, OTHER ==
--- NOTE | 2017-03-11 10:27 | FL ---
EXAMINATION TYPE: FL esophagus cervic/pharynx DATE OF EXAM ORDERED: 03/11/2017 10:12 AM HISTORY: Tightness in the throat particularly well reclining. COMPARISON: None. FINDINGS: The esophagus distended normally with air and barium without evidence of obstructing or co nstricting disease. The mucosal pattern throughout the esophagus is normal. There is no significant h iatal hernia or reflux. Limited views of the stomach are normal. There is metallic hardware within the cervical spine. IMPRESSION: NORMAL AIR-CONTRAST ESOPHAGRAM.
== END | disposition home or self-care (01) ==
LOC: RADFLMAIN 09:13
PROVIDERS: ATTEND Internal Medicine
DX: R13.10 Dysphagia, unspecified (principal)
CPT/HCPCS: 74210

== ENCOUNTER → 2017-04-15 | Outpatient (CLI) | payer MEDICARE, OTHER ==
--- NOTE | 2017-04-15 15:59 | US ---
EXAMINATION TYPE: US kidneys/renal and bladder DATE OF EXAM: 04/15/2017 COMPARISON: NONE CLINICAL HISTORY: Abn Renal Function test R94.4. Abnormal renal function test, history of renal cysts EXAM MEASUREMENTS: Right Kidney: 10.4 x 4.9 x 4.5 cm Left Kidney: 11.2 x 5.7 x 4.3 cm *Technical limitations due to large amount of overlying bowel content Right Kidney: dense echogenic area mid = 0.8cm Left Kidney: lobulated in appearance. Hypoechoic area lower pole = 1.7 x 1.1 x 1.1cm Bladder: appears wnl Bilateral Jets seen: yes IMPRESSION: 1. Echogenic focus within the right kidney measures 8 mm May represent a nonobstructing renal stone. 2. 1.7 cm left renal cyst. 3. No hydronephrosis or nephrolithiasis.
== END | disposition home or self-care (01) ==
LOC: RADUSWWP 15:07
PROVIDERS: ATTEND Internal Medicine
DX: N28.1 Cyst of kidney, acquired (principal); R94.4 Abnormal results of kidney function studies
CPT/HCPCS: 76770

== ENCOUNTER 2018-08-26 12:59 | Inpatient (IN) | payer MEDICARE, OTHER ==
[2018-08-26] MEDS ORDERED: SODIUM CHLORIDE 0.9% 1,000 ML IV STA (13:51)
[2018-08-26] MEDS ORDERED: IPRATROPIUM-ALBUTEROL 3 ML NEB INHALATION STA (13:51)
[2018-08-26] MEDS ORDERED: ACETAMINOPHEN TAB 325 MG TAB PO STA (13:56)
--- NOTE | 2018-08-26 13:58 | ED ---
General Adult HPI - General Chief complaint: Upper Respiratory Infection Stated complaint: Dr rosenbaum- Flu, poss pneumonia Time Seen by Provider: 08/26/18 13:20 Source: patient, RN notes reviewed, old records reviewed Mode of arrival: ambulatory Limitations: no limitations - History of Present Illness Initial comments: 73-year-old male patient past medical history of hypertension, asbestosis, COPD , presents to ED with approximately 2 weeks of waxing and waning cough. Patient reports that times his cough is productive with mucus. Patient reports that he has had some waxing and waning fevers and chills over this timeframe as well. Patient denies any shortness of breath. Patient states that he has some muscular pain when coughing however denies any baseline chest pain, or chest pain with exertion. Patient denies any other complaints. Patient denies any abdominal pain, nausea vomiting diarrhea. Patient was seen by his primary care provider today, recommended the patient have chest x-ray to rule out pneumonia. Systemic: Pt denies fatigue, myalgia, fever/chills, rash. Pt denies weakness, night sweats, weight loss. Neuro: Pt denies headache, visual disturbances, syncope or pre-syncope. HEENT: Pt denies ocular discharge or irritation, otalgia, rhinorrhea, pharyngitis or notable lymphadenopathy. Cardiopulmonary: Pt denies chest pain, heart palpitations, dyspnea on exertion. Abdominal/GI: Pt denies abdominal pain, n/v/d. : Pt denies dysuria, burning w/ urination, frequency/urgency. Denies new onset urinary or bowel incontinence. MSK: Pt denies myalgia, loss of strength or function in extremities. Neuro: Pt denies new onset weakness, paresthesias. - Related Data Home Medications Medication Instructions Recorded Confirmed Pantoprazole Sodium 40 mg PO HS 07/05/14 08/26/18 Albuterol Inhaler [Ventolin Hfa 1 - 2 puff INHALATION RT-QID PRN 02/20/17 Inhaler] Atorvastatin Calcium [Lipitor] 10 mg PO HS 02/20/17 08/26/18 Metoprolol Succinate [Toprol XL] 50 mg PO DAILY 02/20/17 08/26/18 glipiZIDE [Glucotrol] 5 mg PO AC-BID 02/20/17 08/26/18 Aspirin [[place] Aspirin EC] 81 mg PO DAILY 08/26/18 08/26/18 Budesonide [Pulmicort] 0.5 mg INHALATION RT-BID 08/26/18 08/26/18 Cetirizine HCl [Zyrtec] 10 mg PO DAILY 08/26/18 08/26/18 Cholecalciferol (Vitamin D3) 2,000 unit PO DAILY 08/26/18 08/26/18 [Vitamin D3] Gabapentin [Neurontin] 400 mg PO TID 08/26/18 08/26/18 Ipratropium-Albuterol Nebulize 3 ml INHALATION RT-TID 08/26/18 08/26/18 [Duoneb 0.5 mg-3 mg/3 ml Soln] Montelukast [Singulair] 10 mg PO DAILY 08/26/18 08/26/18 Spironolactone [Aldactone] 25 mg PO DAILY 08/26/18 08/26/18 Tamsulosin HCl [Flomax] 0.4 mg PO DAILY 08/26/18 08/26/18 hydrALAZINE HCL [Apresoline] 10 mg PO BID 08/26/18 08/26/18 Allergies Allergy/AdvReac Type Severity Reaction Status Date / Time codeine Allergy PROBLEMS Verified 08/26/18 14:40 WITH BLADDER Review of Systems ROS Statement: Those systems with pertinent positive or pertinent negative responses have been documented in the HPI. ROS Other: All systems not noted in ROS Statement are negative. Past Medical History Past Medical History: Atrial Fibrillation, Diabetes Mellitus, GERD/Reflux, Hyperlipidemia, Osteoarthritis (OA), Pneumonia Additional Past Medical History / Comment(s): NEUROPATHY History of Any Multi-Drug Resistant Organisms: None Reported Past Surgical History: Adenoidectomy, Hernia Repair, Joint Replacement, Orthopedic Surgery, Tonsillectomy Additional Past Surgical History / Comment(s): NECK SURGERY X4, TOTAL LEFT KNEE , CTR BOTH HANDS, cataract removal bilat., cardiac cath 03/2016 Past Anesthesia/Blood Transfusion Reactions: No Reported Reaction Past Psychological History: No Psychological Hx Reported Smoking Status: Former smoker Past Alcohol Use History: None Reported Past Drug Use History: None Reported - Past Family History Father Family Medical History: Pulmonary Embolus Additional Family Medical History / Comment(s): from PE in his 50s Mother Family Medical History: Coronary Artery Disease (CAD), Hypertension General Exam - General Exam Comments Initial Comments: Constitutional: NAD, AOX3, Pt has pleasant affect. HEENT: NC/AT, trachea midline, neck supple, no lymphadenopathy. Posterior pharynx non erythematous, without exudates. External ears appear normal, without discharge. Mucous membranes moist. Eyes PERRLA, EOM intact. There is no scleral icterus. No pallor noted. Cardiopulmonary: RRR, no murmurs, rubs or gallops, no JVD noted. Lungs CTAB in anterior and posterior merchant. No peripheral edema. Abdominal exam: Abdomen soft and non-distended. Abdomen non-tender to palpation in all 4 quadrants. Bowel sounds active in LLQ. No hepatosplenomegaly. No ecchymosis Neuro: CN II-XII grossly intact. No nuchal rigidity. MSK: No posterior calf tenderness bilaterally, homans sign negative bilaterally. Posterior tibialis and radial pulse +2 bilaterally. Sensation intact in upper and lower extremities. Full active ROM in upper and lower extremities, 5/5 stregnth. Limitations: no limitations Course Vital Signs 08/26/18 08/26/18 08/26/18 13:08 14:00 14:10 Temperature 98.6 F Pulse Rate 98 88 93 Respiratory 18 18 Rate Blood Pressure 129/79 133/84 O2 Sat by Pulse 96 95 Oximetry 08/26/18 08/26/18 08/26/18 14:23 15:00 16:39 Temperature Pulse Rate 89 89 77 Respiratory 18 20 Rate Blood Pressure 114/64 121/58 O2 Sat by Pulse 96 98 Oximetry 08/26/18 17:39 Temperature 98.3 F Pulse Rate 75 Respiratory 18 Rate Blood Pressure 121/91 O2 Sat by Pulse 97 Oximetry Medical Decision Making - Medical Decision Making 73-year-old male patient past medical history of hypertension, asbestosis, COPD , presents to ED with approximately 2 weeks of waxing and waning cough. Patient reports that times his cough is productive with mucus. Patient reports that he has had some waxing and waning fevers and chills over this timeframe as well. Patient denies any shortness of breath. Patient states that he has some muscular pain when coughing however denies any baseline chest pain, or chest pain with exertion. Patient denies any other complaints. Patient denies any abdominal pain, nausea vomiting diarrhea. Patient was seen by his primary care provider today, recommended the patient have chest x-ray to rule out pneumonia. Pt VSS, afebrile. Physical exam did not display acute pathology. Laboratory investigations revealed non-impressive CBC. Coaugulation studies were within normal limits. BMP revealed increase in creatinine of 1.9, increaed from 1.2 on 02/2017. Influenza A was positive. D-dimer was 0.88. VQ scan was low probability of PE. CXR dispayed no acute process. EKG no concern for acute ischemia. Patient was reportedly supposed to be a direct admit from Dr. Valente , pt was confused and presented to ED. Spoke with mid level provider of Dr. Kimble, she would like pt to be admitted with pulmonology consult. Case discussed in depth with Dr. Escobar. - Lab Data Result diagrams: 08/26/18 13:40 08/26/18 13:40 Lab Results 08/26/18 08/26/18 08/26/18 Range/Units 13:40 13:40 13:40 WBC 5.3 (3.8-10.6) k/uL RBC 5.32 (4.30-5.90) m/uL Hgb 16.3 (13.0-17.5) gm/dL Hct 48.8 (39.0-53.0) % MCV 91.8 (80.0-100.0) fL MCH 30.6 (25.0-35.0) pg MCHC 33.4 (31.0-37.0) g/dL RDW 13.9 (11.5-15.5) % Plt Count 174 (150-450) k/uL Neutrophils % 60 % Lymphocytes % 16 % Monocytes % 18 % Eosinophils % 2 % Basophils % 1 % Neutrophils # 3.2 (1.3-7.7) k/uL Lymphocytes # 0.9 L (1.0-4.8) k/uL Monocytes # 1.0 (0-1.0) k/uL Eosinophils # 0.1 (0-0.7) k/uL Basophils # 0.1 (0-0.2) k/uL Manual Slide Review Performed RBC Morphology Normal PT (9.0-12.0) sec INR (<1.2) APTT (22.0-30.0) sec D-Dimer (<0.60) mg/L FEU Sodium 139 (137-145) mmol/L Potassium 4.6 (3.5-5.1) mmol/L Chloride 103 (98-107) mmol/L Carbon Dioxide 24 (22-30) mmol/L Anion Gap 12 mmol/L BUN 25 H (9-20) mg/dL Creatinine 1.94 H (0.66-1.25) mg/dL Est GFR (CKD-EPI)AfAm 39 (>60 ml/min/1.73 sqM) Est GFR (CKD-EPI)NonAf 33 (>60 ml/min/1.73 sqM) Glucose 121 H (74-99) mg/dL Calcium 9.7 (8.4-10.2) mg/dL Magnesium 1.7 (1.6-2.3) mg/dL Troponin I (0.000-0.034) ng/mL NT-Pro-B Natriuret Pep pg/mL Influenza Type A RNA Detected H (Not Detectd) Influenza Type B (PCR) Not Detected (Not Detectd) 08/26/18 08/26/18 08/26/18 Range/Units 13:40 13:40 13:40 WBC (3.8-10.6) k/uL RBC (4.30-5.90) m/uL Hgb (13.0-17.5) gm/dL Hct (39.0-53.0) % MCV (80.0-100.0) fL MCH (25.0-35.0) pg MCHC (31.0-37.0) g/dL RDW (11.5-15.5) % Plt Count (150-450) k/uL Neutrophils % % Lymphocytes % % Monocytes % % Eosinophils % % Basophils % % Neutrophils # (1.3-7.7) k/uL Lymphocytes # (1.0-4.8) k/uL Monocytes # (0-1.0) k/uL Eosinophils # (0-0.7) k/uL Basophils # (0-0.2) k/uL Manual Slide Review RBC Morphology PT 10.6 (9.0-12.0) sec INR 1.0 (<1.2) APTT 25.0 (22.0-30.0) sec D-Dimer 0.88 H (<0.60) mg/L FEU Sodium (137-145) mmol/L Potassium (3.5-5.1) mmol/L Chloride (98-107) mmol/L Carbon Dioxide (22-30) mmol/L Anion Gap mmol/L BUN (9-20) mg/dL Creatinine (0.66-1.25) mg/dL Est GFR (CKD-EPI)AfAm (>60 ml/min/1.73 sqM) Est GFR (CKD-EPI)NonAf (>60 ml/min/1.73 sqM) Glucose (74-99) mg/dL Calcium (8.4-10.2) mg/dL Magnesium (1.6-2.3) mg/dL Troponin I <0.012 (0.000-0.034) ng/mL NT-Pro-B Natriuret Pep 148 pg/mL Influenza Type A RNA (Not Detectd) Influenza Type B (PCR) (Not Detectd) - EKG Data -: EKG Interpreted by Me EKG Comments: Ventricular rate 87, AR interval 176, QRS 90. QT/QTC 348/418. Normal sinus rhythm, normal EKG. Disposition Clinical Impression: COPD (chronic obstructive pulmonary disease), Acute kidney injury, Influenza A Disposition: ADMITTED IP TO THIS HOSP Condition: Serious Is patient prescribed a controlled substance at d/c from ED?: No
[2018-08-26 14:20] LABS: Basophils # (A) 0.1 k/uL (0-0.2); Basophils % (A) 1 %; Eosinophils # (A) 0.1 k/uL (0-0.7); Eosinophils % (A) 2 %; HCT 48.8 % (39.0-53.0); HGB 16.3 gm/dL (13.0-17.5); Lymphocytes # (A) 0.9 k/uL (1.0-4.8); Lymphocytes % (A) 16 %; MCH 30.6 pg (25.0-35.0); MCHC 33.4 g/dL (31.0-37.0); MCV 91.8 fL (80.0-100.0); Mean Platelet Volume 6.9; Monocytes % (A) 18 %; Neutrophils # (A) 3.2 k/uL (1.3-7.7); Neutrophils % (A) 60 %; Platelet Count 174 k/uL (150-450); RBC 5.32 m/uL (4.30-5.90); RDW 13.9 % (11.5-15.5); WBC 5.3 k/uL (3.8-10.6)
[2018-08-26 14:22] LABS: Calcium 9.7 mg/dL (8.4-10.2); Magnesium 1.7 mg/dL (1.6-2.3); Potassium 4.6 mmol/L (3.5-5.1)
[2018-08-26 14:23] LABS: Prothrombin Time 10.6 sec (9.0-12.0)
[2018-08-26 14:34] LABS: D-Dimer 0.88 mg/L FEU (<0.60)
--- NOTE | 2018-08-26 14:49 | XR ---
EXAMINATION TYPE: XR chest 2V DATE OF EXAM: 08/26/2018 COMPARISON: February 20, 2017 HISTORY: Shortness of breath TECHNIQUE: Frontal and lateral views of the chest are obtained. FINDINGS: Scattered senescent parenchymal changes noted. Hyperinflation compatible with COPD. No evidence for infiltrate. No evidence for atelectasis. Heart size is stable. Mediastinal structures are stable and grossly unremarkable. No evidence for hilar prominence. Degenerative changes dorsal spine. IMPRESSION: 1. No evidence for acute pulmonary disease.
[2018-08-26] MEDS ORDERED: SODIUM CHLORIDE 0.9% 500 ML 500 ML IV STA (14:53)
--- NOTE | 2018-08-26 16:44 | NM ---
EXAMINATION TYPE: NM pul vent and perfuse DATE OF EXAM: 08/26/2018 COMPARISON: Chest x-ray same date HISTORY: Cough, elevated d-dimer, difficulty breathing TECHNIQUE: Utilizing inhalation of 34.3 mCi Tc 99m DTPA aerosol and intravenous injection of 5.19 mC i of Tc 99m MAA, ventilation and perfusion images are acquired post injection in multiple projections . FINDINGS: Relatively homogenous radio pharmaceutical uptake distribution is noted in the lungs on perfusion sca nning, ventilation scanning somewhat less homogenous toward the apices as compared to perfusion scann ing. There is no evidence of mismatched defects. IMPRESSION: Low probability of pulmonary present. Suspect underlying COPD.
[2018-08-26] MEDS ORDERED: NALOXONE 0.4 MG/ML 1 ML VIAL IV PRN (17:05)
[2018-08-26 18:54] VITALS: BMI 35.0
[2018-08-26] MEDS ORDERED: ALBUTEROL NEBULIZED 2.5 MG/3 ML INHALATION PRN (20:29)
[2018-08-26] MEDS ORDERED: ONDANSETRON 4 MG/2 ML VIAL IVP PRN (20:35)
[2018-08-26 21:24] LABS: Glucose,Whole Blood 141 mg/dL (75-99)
[2018-08-26] MEDS: PANTOPRAZOLE 40 MG TABLET PO SCH (22:14)
[2018-08-26] MEDS: SODIUM CHLORIDE 0.9% 1,000 ML IV SCH (22:14)
[2018-08-26] MEDS: GABAPENTIN 400 MG CAP PO SCH (22:14)
[2018-08-26] MEDS: hydrALAZINE HCL 10 MG TAB PO SCH (22:15)
[2018-08-26] MEDS: ATORVASTATIN 10 MG TAB PO SCH (22:16)
[2018-08-26] MEDS: INSULIN ASPART (NovoLOG) 100 UNIT/ML VIAL SQ SCH (22:16)
[2018-08-26] MEDS: OSELTAMIVIR 60 MG/10 ML ORAL SYRINGE PO SCH (22:17)
[2018-08-26] MEDS: guaiFENesin SYRUP 100MG/5ML 200 MG/10 ML CUP PO PRN (22:18)
[2018-08-26] MEDS: ACETAMINOPHEN TAB 325 MG TAB PO PRN (22:39)
[2018-08-27] MEDS: ACETAMINOPHEN TAB 325 MG TAB PO PRN ×2 (06:19→14:17)
[2018-08-27] MEDS: INSULIN ASPART (NovoLOG) 100 UNIT/ML VIAL SQ SCH ×4 (07:24→21:50)
[2018-08-27 07:27] LABS: Glucose,Whole Blood 127 mg/dL (75-99)
[2018-08-27] MEDS: GABAPENTIN 400 MG CAP PO SCH ×3 (07:41→21:50)
[2018-08-27] MEDS: METOPROLOL SUCCINATE (ER) 50 MG TAB.ER.24H PO SCH (07:41)
[2018-08-27] MEDS: hydrALAZINE HCL 10 MG TAB PO SCH ×2 (07:41→21:00)
[2018-08-27] MEDS: MONTELUKAST 10 MG TAB PO SCH (07:41)
[2018-08-27] MEDS: LORATADINE 10 MG TAB PO SCH (07:41)
[2018-08-27] MEDS: glipiZIDE 5 MG TAB PO SCH ×2 (07:41→17:34)
[2018-08-27] MEDS: TAMSULOSIN 0.4 MG CAP.ER.24H PO SCH (07:41)
[2018-08-27] MEDS: OSELTAMIVIR 60 MG/10 ML ORAL SYRINGE PO SCH ×2 (07:42→21:00)
[2018-08-27] MEDS: ASPIRIN 81 MG PO SCH (07:42)
[2018-08-27] MEDS: IPRATROPIUM-ALBUTEROL 3 ML NEB INHALATION SCH ×3 (08:03→21:02)
[2018-08-27] MEDS: BUDESONIDE 0.5 MG/2 ML NEBU INHALATION SCH ×2 (08:03→21:02)
[2018-08-27] MEDS ORDERED: SPIRONOLACTONE 25 MG TAB PO SCH (09:00)
[2018-08-27 09:10] LABS: HCT 50.3 % (39.0-53.0); HGB 16.4 gm/dL (13.0-17.5); MCH 30.7 pg (25.0-35.0); MCHC 32.5 g/dL (31.0-37.0); MCV 94.2 fL (80.0-100.0); Mean Platelet Volume 7.2; Platelet Count 162 k/uL (150-450); RBC 5.34 m/uL (4.30-5.90); RDW 13.9 % (11.5-15.5); WBC 3.8 k/uL (3.8-10.6)
[2018-08-27 09:53] LABS: Albumin 3.9 g/dL (3.5-5.0); Calcium 8.8 mg/dL (8.4-10.2); Potassium 4.8 mmol/L (3.5-5.1); Total Bilirubin 0.7 mg/dL (0.2-1.3); Total Protein 6.8 g/dL (6.3-8.2)
[2018-08-27 10:34] LABS: Basophils # (M) 0.04 k/uL (0-0.2); Eosinophils # (M) 0.11 k/uL (0-0.7); Monocytes # (M) 0.46 k/uL (0-1.0); Neutrophils # (M) 2.39 k/uL (1.3-7.7); Neutrophils % (M) 63 %; Nucleated Red Blood Cells 0 /100 WBC (0-0); Total Cells Counted 100
[2018-08-27 10:36] LABS: Anisocytosis (M) Present; Poikilocytosis (M) Present
--- NOTE | 2018-08-27 11:01 | P.HPIM ---
History of Present Illness H&P Date: 08/27/18 This is a 73-year-old male patient who presented with complaints of increased shortness of breath. Patient has positive for influenza A. Patient reports that symptoms started about a week ago when she started feeling increasingly tired and weak. Patient also reports over the past few days he's been on and off with fevers and chills. Patient does have known past medical history of COPD which he follows with Dr. INO Correa for pulmonary. Additional medical history includes A. fib, diabetes mellitus, GERD, hyperlipidemia, osteoarthritis and pneumonia. Chest x-ray completed showing no evidence for acute pulmonary disease. Patient's d-dimer elevated at 0.88. VQ scan was completed due to renal function and showed low probability of pulmonary present. Suspect underlying COPD. EKG completed showing normal sinus rhythm normal EKG. patient started on Tamiflu and Rocephin. Dr. INO Correa consulted for pulmonary care. At this time patient remains febrile with chills. Patient denies chest pain. Patient denies any nausea vomiting or diarrhea. Patient denies any urinary burning or frequency Review of Systems please refer to HPI otherwise unremarkable Past Medical History Past Medical History: Atrial Fibrillation, Diabetes Mellitus, GERD/Reflux, Hyperlipidemia, Osteoarthritis (OA), Pneumonia Additional Past Medical History / Comment(s): NEUROPATHY History of Any Multi-Drug Resistant Organisms: None Reported Past Surgical History: Adenoidectomy, Hernia Repair, Joint Replacement, Orthopedic Surgery, Tonsillectomy Additional Past Surgical History / Comment(s): NECK SURGERY X4, TOTAL LEFT KNEE , CTR BOTH HANDS, cataract removal bilat., cardiac cath 03/2016 Past Anesthesia/Blood Transfusion Reactions: No Reported Reaction Past Psychological History: No Psychological Hx Reported Smoking Status: Former smoker Past Alcohol Use History: None Reported Past Drug Use History: None Reported - Past Family History Father Family Medical History: Pulmonary Embolus Additional Family Medical History / Comment(s): from PE in his 50s Mother Family Medical History: Coronary Artery Disease (CAD), Hypertension Medications and Allergies Home Medications Medication Instructions Recorded Confirmed Type RX: Pantoprazole Sodium 40 mg PO HS 07/05/14 08/26/18 History RX: Albuterol Inhaler [Ventolin 1 - 2 puff INHALATION RT-QID PRN 02/20/17 History Hfa Inhaler] RX: Atorvastatin Calcium [Lipitor] 10 mg PO HS 02/20/17 08/26/18 History RX: Metoprolol Succinate [Toprol 50 mg PO DAILY 02/20/17 08/26/18 History XL] RX: glipiZIDE [Glucotrol] 5 mg PO AC-BID 02/20/17 08/26/18 History Cetirizine HCl [Zyrtec] 10 mg PO DAILY 08/26/18 08/26/18 History Cholecalciferol (Vitamin D3) 2,000 unit PO DAILY 08/26/18 08/26/18 History [Vitamin D3] Ipratropium-Albuterol Nebulize 3 ml INHALATION RT-TID 08/26/18 08/26/18 History [Duoneb 0.5 mg-3 mg/3 ml Soln] RX: Aspirin [[place] Aspirin EC] 81 mg PO DAILY 08/26/18 08/26/18 History RX: Budesonide [Pulmicort] 0.5 mg INHALATION RT-BID 08/26/18 08/26/18 History RX: Gabapentin [Neurontin] 400 mg PO TID 08/26/18 08/26/18 History RX: Montelukast [Singulair] 10 mg PO DAILY 08/26/18 08/26/18 History RX: hydrALAZINE HCL [Apresoline] 10 mg PO BID 08/26/18 08/26/18 History Spironolactone [Aldactone] 25 mg PO DAILY 08/26/18 08/26/18 History Tamsulosin HCl [Flomax] 0.4 mg PO DAILY 08/26/18 08/26/18 History Allergies Allergy/AdvReac Type Severity Reaction Status Date / Time codeine Allergy PROBLEMS Verified 08/26/18 14:40 WITH BLADDER Physical Exam Vitals: Vital Signs Temp Pulse Pulse Resp BP BP Pulse Ox 08/27/18 08:46 98.7 F 08/27/18 08:00 100.0 F H 18 95 08/27/18 07:45 18 08/27/18 06:15 100.0 F H 112 H 20 98/61 94 L 08/27/18 01:52 98.1 F 08/27/18 00:30 101.5 F H 08/26/18 23:00 102.8 F H 108 H 20 125/54 95 08/26/18 18:35 98.5 F 74 20 125/72 99 08/26/18 17:39 98.3 F 75 18 121/91 97 08/26/18 16:39 77 20 121/58 98 08/26/18 15:00 89 18 114/64 96 08/26/18 14:23 89 08/26/18 14:10 93 08/26/18 14:00 88 18 133/84 95 08/26/18 13:08 98.6 F 98 18 129/79 96 Intake and Output 08/26/18 08/27/18 08/27/18 22:59 06:59 14:59 Intake Total 400 375 Balance 400 375 Intake: Oral 400 375 Other: Voiding Method Toilet # Voids 2 2 Head normocephalic Neck supple Lungs diminished bilaterally Heart regular rate and rhythm S1-S2, no rub or gallop Abdomen is soft nontender nondistended positive bowel sounds no hepatosplenomegaly Extremities no edema Neuro alert and orientated to 3 Results CBC & Chem 7: 08/27/18 08:34 08/27/18 08:34 Labs: Abnormal Lab Results - Last 24 Hours (Table) 08/26/18 08/26/18 08/26/18 Range/Units 13:40 13:40 13:40 Lymphocytes # 0.9 L (1.0-4.8) k/uL Lymphocytes # (Manual) (1.0-4.8) k/uL D-Dimer (<0.60) mg/L FEU BUN 25 H (9-20) mg/dL Creatinine 1.94 H (0.66-1.25) mg/dL Glucose 121 H (74-99) mg/dL POC Glucose (mg/dL) (75-99) mg/dL Influenza Type A RNA Detected H (Not Detectd) 08/26/18 08/26/18 08/27/18 Range/Units 13:40 21:03 07:21 Lymphocytes # (1.0-4.8) k/uL Lymphocytes # (Manual) (1.0-4.8) k/uL D-Dimer 0.88 H (<0.60) mg/L FEU BUN (9-20) mg/dL Creatinine (0.66-1.25) mg/dL Glucose (74-99) mg/dL POC Glucose (mg/dL) 141 H 127 H (75-99) mg/dL Influenza Type A RNA (Not Detectd) 08/27/18 08/27/18 Range/Units 08:34 08:34 Lymphocytes # (1.0-4.8) k/uL Lymphocytes # (Manual) 0.80 L (1.0-4.8) k/uL D-Dimer (<0.60) mg/L FEU BUN 22 H (9-20) mg/dL Creatinine 1.78 H (0.66-1.25) mg/dL Glucose 145 H (74-99) mg/dL POC Glucose (mg/dL) (75-99) mg/dL Influenza Type A RNA (Not Detectd) Thrombosis Risk Factor Assmnt - Choose All That Apply Each Factor Represents 1 point: Obesity (BMI >25) Each Risk Factor Represents 2 Points: Age 61-74 years Each Risk Factor Represents 3 Points: Family history of DVT/PE Thrombosis Risk Factor Assessment Total Risk Factor Score: 6 Thrombosis Risk Factor Assessment Level: High Risk Assessment and Plan Assessment: 1. Influenza A. Patient started on Tamiflu. Patient has been febrile 2. COPD with possible pneumonia. Sputum culture has been ordered. Chest x- ray completed showing no acute pulmonary process. Patient started on Rocephin. DuoNeb breathing treatments ordered. Pulmonary service is consulted. V/Q showing low probability for PE 3. Acute kidney injury. Initial creatinine 1.9. Repeat creatinine 1.78. We' ll continue to monitor. Aldactone DC'd 4. History of atrial fibrillation. Patient currently not on anticoagulation. EKG completed in ER showing normal sinus rhythm 5. History of diabetes mellitus. Sliding scale and home medications reordered 6. History of GERD 7. History of hyperlipidemia 8. History of osteoarthritis 9. History of neuropathy VT prophylaxis Lovenox. GI prophylaxis Protonix Time with Patient: Greater than 30 (Greater than 60% of the total time spent in counseling and coordination of care. I performed an examination of the patient and discussed their management with the Nurse Practitioner. I have reviewed the Nurse Practitioner's notes and agree with the documented findings and plan of care)
[2018-08-27] MEDS: CHOLECALCIFEROL 1,000 UNIT TAB PO SCH (11:24)
[2018-08-27 11:58] LABS: Glucose,Whole Blood 94 mg/dL (75-99)
[2018-08-27] MEDS: methylPREDNISolone SOD SUCCI 125 MG/2 ML VIAL IV SCH ×2 (15:05→17:58)
[2018-08-27 17:26] LABS: Glucose,Whole Blood 146 mg/dL (75-99)
--- NOTE | 2018-08-27 18:47 | CONS ---
CONSULTATION DATE OF SERVICE: 08/27/2018. HISTORY OF PRESENT ILLNESS: The patient is a 73-year-old male who came into the emergency room with a complaint of cough that has been waxing and waning over the past 2 weeks. The patient states that when he starts coughing, he cannot stop and it is causing his chest to hurt. Rib cage hurts bilaterally and as well as musculoskeletally across the chest. The patient does verbalize productive cough for green thick sputum. Denies any hemoptysis. The patient also found to be febrile in the emergency room, was tested and was positive for influenza A and was admitted for further evaluation and treatment. PAST MEDICAL HISTORY: Significant for atrial fibrillation, diabetes mellitus. GERD, hyperlipidemia, osteoarthritis, pneumonia, and neuropathy. PAST SURGICAL HISTORY: Significant for adenoidectomy, hernia repair, joint replacement, orthopedic surgery, tonsillectomy, neck surgeries, total left knee, bilateral cataracts, and cardiac catheterization in March 2016. ALLERGIES: INCLUDE CODEINE. MEDICATIONS: Patient is on at home include hydralazine 10 mg p.o. b.i.d., Glucotrol 5 mg p.o. before meals b.i.d., Flomax 0.4 mg p.o. daily, Aldactone 25 mg p.o. daily, Protonix 40 mg p.o. q.h.s., singular 10 mg p.o. daily. Toprol-XL 50 mg p.o. daily. DuoNeb 0.5 mg via nebulizer t.i.d., Neurontin 400 mg p.o. t.i.d., vitamin D3 2000 units p.o. daily. Zyrtec 10 mg p.o. daily. Pulmicort 0.5 mg via nebulizer b.i.d., Lipitor 10 mg p.o. q.h.s., baby aspirin 81 mg p.o. daily. Ventolin HFA 1-2 puffs inhalation q.i.d. p.r.n. FAMILY HISTORY: Father in his 50s, had a PE. Mother with coronary artery disease and hypertension. SOCIAL HISTORY: The patient with a history of smoking 1 pack a day for 10 years and that was many, many years ago. The patient denies any alcohol intake. 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 REVIEW OF SYSTEMS: General is significant for fever and chills. HEENT negative for any headaches. Negative for dizziness or lightheadedness. Denies any acute visual changes. Denies any difficulty hearing. Denies any recent nosebleeds. Does complain of some nasal congestion. Denies sore throat or intermittent difficulty swallowing. Respiratory is positive for shortness of breath. Negative for any hemoptysis. Patient with a waxing and weaning cough. Cardiovascular is positive for musculoskeletal type pain across the chest and rib cage. The patient with a very brief history of atrial fibrillation, currently sinus rhythm. Gastrointestinal: Negative for any back abdominal pain. Denies any nausea, vomiting, diarrhea, constipation. is negative for any dysuria or hematuria endocrine is positive for diabetes mellitus, non-insulin dependent. Neurologic: The patient does have neuropathy to the bilateral feet. Denies any history of seizures. MUSCULOSKELETAL: Positive for osteoarthritis. PSYCHIATRIC: No history of depression or anxiety. PHYSICAL EXAM: General: Pleasant 73-year-old male who is seen sitting up in bed, is awake and alert. Calm and cooperative, in no acute distress. Vital signs: Temp is 98.7, heart rate is 96, respiratory rate is 18, blood pressure is 98/61, O2 saturation 95% on room air. HEENT. Head is normocephalic, atraumatic. Pupils equal, round, react to light. Ears, nose no discharge is noted. Mouth with moist mucous membranes. Mallampati class 3-4. Neck is short thick supple. Trachea is midline. Lungs with diminished breath sounds and scattered expiratory wheeze. Heart S1, S2 heard. Not tachycardic. ABDOMEN: Soft. Bowel sounds heard. EXTREMITIES: With no edema. Neurologic: Patient is awake, alert, oriented. LABS: White count 3.8, hemoglobin 16.4, hematocrit 50.3, with 162,000 platelets. Influenza type A is positive. Sodium is 140, potassium is 4.8, chloride 105, CO2 is 23, anion gap is 12, BUN is 22, creatinine is 1.78, glucose is 145, calcium is 8.8, total bilirubin 0.7, AST is 59, ALT is 64, alkaline phosphatase is 52. Troponin less than 0.012. BNP is 148, total protein 6.8, albumin is 3.9. IMAGING: Chest x-ray shows no evidence for acute pulmonary disease. V/Q scan shows low probability of pulmonary embolism present. Suspect underlying COPD. IMPRESSION: 1. Acute exacerbation of chronic obstructive pulmonary disease. 2. Influenza A. 3. History of hyperlipidemia. 4. Diabetes mellitus. PLAN: Continue bronchodilators and aerosol steroids. Supplemental oxygen to maintain O2 saturations greater than or equal to 90%. Continue Singulair. Add IV Solu-Medrol 60 mg IV q.6 hours to decrease inflammation in airways. Add incentive spirometry with pulmonary hygiene. Continue GI and DVT prophylaxis. Thank you for the consultation. It is also noted the patient may benefit from a sleep study as an outpatient as he appears to be high risk with the Mallampati of a class 3. Patient does state that he has family members with obstructive sleep apnea. Patient with a very short thick neck. Again, would benefit from a sleep study as an outpatient with understanding verbalized. We will continue to follow patient closely with you making further changes as necessary. Thank you for the consultation. I performed a History & Physical Examination of the patient and discussed their management with nurse practitioner. I reviewed the nurse practitioner's note and agree with the documented findings and plan of care. MMODL / IJN: [id number] /
[2018-08-27 20:15] LABS: Hemoglobin A1C 7.1 % (4.0-6.0)
[2018-08-27 20:56] LABS: Glucose,Whole Blood 199 mg/dL (75-99)
[2018-08-27] MEDS: ATORVASTATIN 10 MG TAB PO SCH (20:59)
[2018-08-27] MEDS: PANTOPRAZOLE 40 MG TABLET PO SCH (21:01)
[2018-08-27] MEDS: SODIUM CHLORIDE 0.9% 1,000 ML IV SCH (21:50)
[2018-08-28] MEDS: methylPREDNISolone SOD SUCCI 125 MG/2 ML VIAL IV SCH ×3 (00:08→13:03)
--- NOTE | 2018-08-28 07:12 | XR ---
EXAMINATION TYPE: XR chest 2V DATE OF EXAM: 08/28/2018 COMPARISON: 08/26/2018 HISTORY: Shortness of breath. History of pneumonia TECHNIQUE: Frontal and lateral views of the chest are obtained. FINDINGS: There is no focal air space opacity, pleural effusion, or pneumothorax seen. The cardiac silhouette size is upper limits of normal. The osseous structures are intact. Nipple shadows overli e the bilateral lower lungs. Mild multilevel degenerative changes of the spine are noted. IMPRESSION: No acute cardiopulmonary process.
[2018-08-28 07:26] LABS: Glucose,Whole Blood 193 mg/dL (75-99)
[2018-08-28] MEDS: IPRATROPIUM-ALBUTEROL 3 ML NEB INHALATION SCH ×3 (08:17→21:34)
[2018-08-28] MEDS: BUDESONIDE 0.5 MG/2 ML NEBU INHALATION SCH ×2 (08:17→21:33)
[2018-08-28] MEDS: INSULIN ASPART (NovoLOG) 100 UNIT/ML VIAL SQ SCH ×4 (08:17→23:15)
[2018-08-28] MEDS: LORATADINE 10 MG TAB PO SCH (08:41)
[2018-08-28] MEDS: GABAPENTIN 400 MG CAP PO SCH ×3 (08:41→23:15)
[2018-08-28] MEDS: METOPROLOL SUCCINATE (ER) 50 MG TAB.ER.24H PO SCH (08:41)
[2018-08-28] MEDS: glipiZIDE 5 MG TAB PO SCH ×2 (08:41→17:55)
[2018-08-28] MEDS: hydrALAZINE HCL 10 MG TAB PO SCH ×2 (08:41→23:15)
[2018-08-28] MEDS: MONTELUKAST 10 MG TAB PO SCH (08:41)
[2018-08-28] MEDS: ASPIRIN 81 MG PO SCH (08:41)
[2018-08-28] MEDS: TAMSULOSIN 0.4 MG CAP.ER.24H PO SCH (08:41)
[2018-08-28] MEDS: ENOXAPARIN 40 MG/0.4 ML SYRINGE SQ SCH (08:42)
[2018-08-28] MEDS: guaiFENesin SYRUP 100MG/5ML 200 MG/10 ML CUP PO PRN ×2 (08:46→17:55)
[2018-08-28] MEDS ORDERED: AZITHROMYCIN 250 MG TAB PO SCH (09:00)
--- NOTE | 2018-08-28 09:27 | CONS ---
CONSULTATION DATE OF SERVICE: 08/27/2018. REASON FOR FOLLOWUP: 1. Acute influenza. 2. Possible pneumonia. HISTORY OF PRESENT ILLNESS: The patient is a 73-year-old male presenting to the ER with chief complaints of increasing shortness of breath and cough that has been going on for the last 2 weeks. However, his symptoms have been getting worse for the last few days. The patient has been increasing shortness of breath. At times, he did have a cough bringing up some greenish sputum and also complaining of central pleuritic chest pain especially taking deep breath and coughing intensity 4 to 5 out of 10, and no radiation. The patient denies any nausea, no vomiting, no choking on the food. No abdominal pain or any diarrhea. With these symptoms, the patient was presented to hospital. The patient did have a fever of 102.8 degrees Fahrenheit. The patient did have tachycardia mild with heart rate from 98 to 100 and the patient's white count was not significantly elevated, mildly elevated creatinine though. The patient did have influenza serology with influenza A coming back positive. The patient did have a chest x-ray that was reported negative for any acute pulmonary process. The patient has been started on Tamiflu in addition to the Rocephin, Solu-Medrol, Singulair. Infectious Disease was consulted for further recommendation regarding antibiotic therapy. REVIEW OF SYSTEMS: Positive points have been mentioned in HPI. The rest of the systems has been negative. PAST MEDICAL HISTORY: Gastroesophageal reflux disease, hypertension, hyperlipidemia, diabetes mellitus, atrial fibrillation, history of pneumonia, and diabetic neuropathy. PAST SURGICAL HISTORY: Hernia repair, tonsillectomy, total left knee replacement, bilateral cataract surgery, PTCA, stenting in March 2016. SOCIAL HISTORY: The patient did have a history of smoking. Denies drinking or any drug use. FAMILY HISTORY: Father in his 50s from a PE. Mother did have history of heart disease and hypertension. ALLERGIES: Allergies to CODEINE. MEDICATIONS: Medications include the patient is currently on Solu-Medrol, Tamiflu, Zofran, Narcan, Singulair, Toprol XL, Claritin, NovoLog, hydralazine, Glucotrol, Neurontin, Rocephin, Pulmicort, Lipitor, DuoNeb. PHYSICAL EXAMINATION: On examination, blood pressure is 133/70 with pulse of 82, temperature 98, T-max is 102. He is 95% on 2 L nasal cannula. General description is an elderly male up in the bed in no distress. No tachypnea or accessory muscle of respiration use. HEENT examination shows no pallor or scleral icterus. Oral mucous membranae is dry. No pharyngeal erythema or thrush. NECK: Trachea central. No thyromegaly. LUNGS: Unlabored breathing. There is an expiratory wheeze. HEART: S1, S2. Regular rate and rhythm. ABDOMEN: Soft. No tenderness. No guarding or rigidity. EXTREMITIES: No edema of feet. SKIN EXAMINATION: No rash or mass palpable. NEUROLOGICAL: Patient is awake, alert, oriented x3. Mood and affect normal. LABS: The patient's white count is normal. Creatinine was slightly elevated. Influenza serology positive. Initial x-ray report negative for any pneumonia. DIAGNOSTIC IMPRESSION AND PLAN: Patient admitted to the hospital with sepsis in a patient who did have fever and tachycardia. Source is likely acute influenza. Concern for possible bronchitis versus early bacterial pneumonia not entirely excluded, likely community-acquired pathogen. PLAN: 1. Will try to obtain sputum for Gram stain culture and sensitivity. 2. We will check a procalcitonin level. 3. . 4. The patient to continue with Tamiflu and finish antibiotic therapy. 5. Rocephin 1 gram daily and will add Zithromax while waiting for repeat cultures and culture to finalize. 6. We will follow up on clinical condition and culture to further adjust medication if needed. Thank you for this consultation. Will follow this patient along with you. MMODL / IJN: [id number] /
[2018-08-28 09:49] LABS: Basophils % (A) 0 %; Eosinophils # (A) 0.1 k/uL (0-0.7); Eosinophils % (A) 1 %; HCT 47.8 % (39.0-53.0); HGB 15.7 gm/dL (13.0-17.5); Lymphocytes # (A) 0.5 k/uL (1.0-4.8); Lymphocytes % (A) 12 %; MCH 30.5 pg (25.0-35.0); MCHC 32.9 g/dL (31.0-37.0); MCV 92.8 fL (80.0-100.0); Mean Platelet Volume 6.5; Monocytes # (A) 0.1 k/uL (0-1.0); Monocytes % (A) 3 %; Neutrophils # (A) 3.6 k/uL (1.3-7.7); Neutrophils % (A) 84 %; Platelet Count 173 k/uL (150-450); RBC 5.15 m/uL (4.30-5.90); RDW 13.8 % (11.5-15.5); WBC 4.3 k/uL (3.8-10.6)
[2018-08-28 09:59] LABS: Albumin 4.3 g/dL (3.5-5.0); Total Bilirubin 0.7 mg/dL (0.2-1.3); Total Protein 7.4 g/dL (6.3-8.2)
[2018-08-28 10:07] LABS: Potassium 5.1 mmol/L (3.5-5.1)
[2018-08-28] MEDS: OSELTAMIVIR 60 MG/10 ML ORAL SYRINGE PO SCH ×2 (10:32→21:21)
--- NOTE | 2018-08-28 11:33 | P.PN ---
Subjective Progress Note Date: 08/28/18 This is a 73-year-old male patient who presented with complaints of increased shortness of breath. Patient has positive for influenza A. Patient reports that symptoms started about a week ago when she started feeling increasingly tired and weak. Patient also reports over the past few days he's been on and off with fevers and chills. Patient does have known past medical history of COPD which he follows with Dr. INO Correa for pulmonary. Additional medical history includes A. fib, diabetes mellitus, GERD, hyperlipidemia, osteoarthritis and pneumonia. Chest x-ray completed showing no evidence for acute pulmonary disease. Patient's d-dimer elevated at 0.88. VQ scan was completed due to renal function and showed low probability of pulmonary present. Suspect underlying COPD. EKG completed showing normal sinus rhythm normal EKG. patient started on Tamiflu and Rocephin. Dr. INO Correa consulted for pulmonary care. At this time patient remains febrile with chills. Patient denies chest pain. Patient denies any nausea vomiting or diarrhea. Patient denies any urinary burning or frequency On 08/28/2018 patient is feeling much improved. Patient has been afebrile for 24 hours. Patient is being followed by pulmonary and infectious disease. Patient maintained on Tamiflu and Rocephin. She denies chest pain or shortness breath. Patient denies nausea vomiting or diarrhea. Patient denies any urinary burning or frequency. Patient also on IV Solu-Medrol per pulmonary. Objective - Vital Signs Vital signs: Vital Signs Temp 97.5 F L 08/28/18 06:15 Pulse 84 08/28/18 08:34 Resp 12 08/28/18 08:19 BP 139/83 08/28/18 06:15 Pulse Ox 95 08/28/18 06:15 Intake & Output 08/27/18 08/28/18 08/28/18 18:59 06:59 18:59 Intake Total 1212 850 Balance 1212 850 Weight 101.605 kg Intake: Oral 1212 850 Other: Voiding Method Toilet # Voids 2 2 - Exam Head normocephalic Neck supple Lungs clear to auscultation bilaterally no wheezing or crackles Heart regular rate and rhythm S1-S2, no rub or gallop Abdomen is soft nontender nondistended positive bowel sounds no hepatosplenomegaly Extremities no edema Neuro alert and orientated to 3 - Labs CBC & Chem 7: 08/28/18 09:17 08/28/18 09:17 Labs: Abnormal Lab Results - Last 24 Hours (Table) 08/27/18 08/27/18 08/27/18 Range/Units 08:34 17:22 20:50 Lymphocytes # (1.0-4.8) k/uL Sodium (137-145) mmol/L Carbon Dioxide (22-30) mmol/L BUN (9-20) mg/dL Creatinine (0.66-1.25) mg/dL Glucose (74-99) mg/dL POC Glucose (mg/dL) 146 H 199 H (75-99) mg/dL Hemoglobin A1c 7.1 H (4.0-6.0) % 08/28/18 08/28/18 08/28/18 Range/Units 07:23 09:17 09:17 Lymphocytes # 0.5 L (1.0-4.8) k/uL Sodium 134 L (137-145) mmol/L Carbon Dioxide 17 L (22-30) mmol/L BUN 25 H (9-20) mg/dL Creatinine 1.40 H (0.66-1.25) mg/dL Glucose 351 H (74-99) mg/dL POC Glucose (mg/dL) 193 H (75-99) mg/dL Hemoglobin A1c (4.0-6.0) % Microbiology - Last 24 Hours (Table) 08/27/18 00:28 Blood Culture - Preliminary Blood No Growth after 24 hours Assessment and Plan Assessment: 1. Influenza A. Patient started on Tamiflu. Patient has been febrile. Patient has been afebrile for 24 hours. Continue Tamiflu. Infectious disease is following. Rocephin has been added 2. COPD with possible pneumonia. Sputum culture has been ordered. Chest x- ray completed showing no acute pulmonary process. Patient started on Rocephin. DuoNeb breathing treatments ordered. Pulmonary service is consulted. V/Q showing low probability for PE. Solu-Medrol has been added per pulmonary 3. Acute kidney injury. Initial creatinine 1.9. Repeat creatinine 1.78. Creatinine continued to trend down 1.40. we'll continue to monitor closely. Patient's home dose of Aldactone remains on hold 4. History of atrial fibrillation. Patient currently not on anticoagulation. EKG completed in ER showing normal sinus rhythm 5. History of diabetes mellitus. Sliding scale and home medications reordered 6. History of GERD 7. History of hyperlipidemia 8. History of osteoarthritis 9. History of neuropathy DVT prophylaxis Lovenox. GI prophylaxis Protonix I performed an examination of the patient and discussed their management with the Nurse Practitioner. I have reviewed the Nurse Practitioner's notes and agree with the documented findings and plan of care
[2018-08-28 11:41] LABS: Glucose,Whole Blood 271 mg/dL (75-99)
[2018-08-28] MEDS: CHOLECALCIFEROL 1,000 UNIT TAB PO SCH (13:02)
[2018-08-28] MEDS ORDERED: guaiFENesin-Coden 100-10MG/5ML 10 ML CUP PO PRN (14:33)
--- NOTE | 2018-08-28 15:45 | PN ---
PROGRESS NOTE DATE OF SERVICE: 08/28/2018 The patient is a 73-year-old male who is seen lying in bed, is awake and alert. Does feel a bit better today, but continues to complain of a cough. The patient is moving better air. Patient is afebrile, hemodynamically stable in no acute distress. PHYSICAL EXAM: VITAL SIGNS: Temperature is 97.5, heart rate is 80, respiratory rate 18, blood pressure is 123/80, O2 sats 96% on room air. HEENT. Head is normocephalic, atraumatic. Neck is supple. Trachea is midline. LUNGS: With improved air entry bilaterally. Diminished in the bases. HEART: S1, S2 are heard. Not tachycardic. ABDOMEN: Soft. Bowel sounds are heard. EXTREMITIES: With no edema. Neurologic: Patient is awake and alert. LABS: White count 4.3, hemoglobin 15.7, hematocrit 47.8 with 173,000 platelets. Sodium is 134, potassium is 5.1, chloride 104, bicarb 17, anion gap is 13, BUN is 25, creatinine is 1.40, glucose is 351, calcium is 9.0, total bilirubin 0.7, AST 48, ALT 51, alkaline phosphatase 52, total protein 7.4, albumin is 4.3. IMAGING: A chest x-ray done this a.m. shows no acute cardiopulmonary process. IMPRESSION: 1. Acute exacerbation of chronic obstructive pulmonary disease. 2. Influenza A. 3. History of hyperlipidemia. 4. Diabetes mellitus, uncontrolled. PLAN: Continue current medications which have been reviewed. Continue bronchodilators and aerosol steroids. Will start weaning IV Solu-Medrol to 40 mg q.6. Continue oxygen to maintain O2 sats greater than or equal to 90%. Continue incentive spirometry with pulmonary hygiene. Continue GI and DVT prophylaxis. Increase activity as tolerated and we will continue to follow patient closely with you making further changes as necessary. I performed a History & Physical Examination of the patient and discussed their management with nurse practitioner. I reviewed the nurse practitioner's note and agree with the documented findings and plan of care. MMODL / AMAN: [id number] /
[2018-08-28] MEDS: methylPREDNISolone SOD SUCCI 40 MG/ML 1 ML VIAL IV SCH ×2 (16:26→23:24)
[2018-08-28 17:21] LABS: Glucose,Whole Blood 166 mg/dL (75-99)
[2018-08-28 20:40] LABS: Glucose,Whole Blood 233 mg/dL (75-99)
[2018-08-28] MEDS: ATORVASTATIN 10 MG TAB PO SCH (21:22)
[2018-08-28] MEDS: PANTOPRAZOLE 40 MG TABLET PO SCH (21:22)
[2018-08-28] MEDS: SODIUM CHLORIDE 0.9% 1,000 ML IV SCH (23:19)
[2018-08-29] MEDS: BUDESONIDE 0.5 MG/2 ML NEBU INHALATION SCH ×2 (07:22→19:39)
[2018-08-29] MEDS: IPRATROPIUM-ALBUTEROL 3 ML NEB INHALATION SCH ×3 (07:22→19:40)
[2018-08-29 07:34] LABS: Glucose,Whole Blood 194 mg/dL (75-99)
--- NOTE | 2018-08-29 08:25 | PN ---
PROGRESS NOTE DATE OF SERVICE: 08/28/2018. REASON FOR FOLLOW UP: 1. Acute cellulitis. 2. Possible pneumonia. INTERVAL HISTORY: The patient is afebrile. The patient breathing has improved. The patient denies having any chest pain or shortness of breath. The patient did have some cough which is dry in nature. No nausea or vomiting. No abdominal pain. No diarrhea. PHYSICAL EXAMINATION: Blood pressure 118/58 with a pulse of 83, temperature 97.8. He is 94% on room air. General description is an elderly male up in the bed in no distress. Respiratory system: Unlabored breathing with decreased breath sounds in the base, with no wheeze. Heart S1, S2. Regular rate and rhythm. Abdomen soft. No tenderness. LABS: BUN of 25, creatinine 1.40, white count of 4.3. Repeat x-ray no acute . Blood culture has been negative. No sputum could be collected. DIAGNOSTIC IMPRESSION AND PLAN: Patient admitted to the hospital with increasing shortness of breath with fever and has been diagnosed with acute influenza that seems to be responding to with also question of possible pneumonia. However, the patient did have are negative for any acute infiltrate. The patient currently production discontinued . Patient remains to be low for underlying secondary pneumonia. Continue supportive care. MMODL / IJN: [id number] /
[2018-08-29] MEDS: ASPIRIN 81 MG PO SCH (08:53)
[2018-08-29] MEDS: GABAPENTIN 400 MG CAP PO SCH ×3 (08:53→22:25)
[2018-08-29] MEDS: methylPREDNISolone SOD SUCCI 40 MG/ML 1 ML VIAL IV SCH (08:53)
[2018-08-29] MEDS: LORATADINE 10 MG TAB PO SCH (08:54)
[2018-08-29] MEDS: ENOXAPARIN 40 MG/0.4 ML SYRINGE SQ SCH (08:54)
[2018-08-29] MEDS: MONTELUKAST 10 MG TAB PO SCH (08:54)
[2018-08-29] MEDS: glipiZIDE 5 MG TAB PO SCH ×2 (08:54→18:00)
[2018-08-29] MEDS: METOPROLOL SUCCINATE (ER) 50 MG TAB.ER.24H PO SCH (08:54)
[2018-08-29] MEDS: hydrALAZINE HCL 10 MG TAB PO SCH ×2 (08:54→22:25)
[2018-08-29] MEDS: INSULIN ASPART (NovoLOG) 100 UNIT/ML VIAL SQ SCH ×4 (08:54→22:25)
[2018-08-29] MEDS: TAMSULOSIN 0.4 MG CAP.ER.24H PO SCH (09:05)
[2018-08-29] MEDS: OSELTAMIVIR 60 MG/10 ML ORAL SYRINGE PO SCH ×2 (10:33→23:23)
[2018-08-29 11:36] LABS: Basophils % (A) 0 %; Eosinophils % (A) 0 %; HCT 45.6 % (39.0-53.0); HGB 14.9 gm/dL (13.0-17.5); Lymphocytes # (A) 0.5 k/uL (1.0-4.8); Lymphocytes % (A) 6 %; MCH 30.4 pg (25.0-35.0); MCHC 32.6 g/dL (31.0-37.0); MCV 93.1 fL (80.0-100.0); Mean Platelet Volume 6.3; Monocytes # (A) 0.4 k/uL (0-1.0); Monocytes % (A) 5 %; Neutrophils % (A) 88 %; Platelet Count 198 k/uL (150-450); RDW 13.8 % (11.5-15.5)
[2018-08-29 11:53] LABS: Albumin 4.1 g/dL (3.5-5.0); Total Bilirubin 0.5 mg/dL (0.2-1.3); Total Protein 6.9 g/dL (6.3-8.2)
--- NOTE | 2018-08-29 11:56 | P.PN ---
Subjective Progress Note Date: 08/29/18 This is a 73-year-old male patient who presented with complaints of increased shortness of breath. Patient has positive for influenza A. Patient reports that symptoms started about a week ago when she started feeling increasingly tired and weak. Patient also reports over the past few days he's been on and off with fevers and chills. Patient does have known past medical history of COPD which he follows with Dr. INO Correa for pulmonary. Additional medical history includes A. fib, diabetes mellitus, GERD, hyperlipidemia, osteoarthritis and pneumonia. Chest x-ray completed showing no evidence for acute pulmonary disease. Patient's d-dimer elevated at 0.88. VQ scan was completed due to renal function and showed low probability of pulmonary present. Suspect underlying COPD. EKG completed showing normal sinus rhythm normal EKG. patient started on Tamiflu and Rocephin. Dr. INO Correa consulted for pulmonary care. At this time patient remains febrile with chills. Patient denies chest pain. Patient denies any nausea vomiting or diarrhea. Patient denies any urinary burning or frequency On 08/28/2018 patient is feeling much improved. Patient has been afebrile for 24 hours. Patient is being followed by pulmonary and infectious disease. Patient maintained on Tamiflu and Rocephin. She denies chest pain or shortness breath. Patient denies nausea vomiting or diarrhea. Patient denies any urinary burning or frequency. Patient also on IV Solu-Medrol per pulmonary. On 08/29/2018 patient is alert and oriented 3. Patient does report he feels much improved. Patient states the afebrile. Patient remains on IV Solu-Medrol , antibiotics and Tamiflu time. At this time patient denies chest pain or shortness of breath. Patient denies nausea vomiting or diarrhea. Patient denies any urinary burning or frequency. Objective - Vital Signs Vital signs: Vital Signs Temp 97.6 F 08/29/18 06:11 Pulse 79 08/29/18 07:38 Resp 18 08/29/18 06:11 BP 118/54 08/29/18 06:11 Pulse Ox 95 08/29/18 06:11 Intake & Output 08/28/18 08/29/18 08/29/18 18:59 06:59 18:59 Intake Total 350 Balance 350 Intake: Oral 350 Other: Voiding Method Toilet Toilet Toilet # Voids 3 2 # Bowel Movements 0 0 - Exam Head normocephalic Neck supple Lungs clear to auscultation bilaterally no wheezing or crackles Heart regular rate and rhythm S1-S2, no rub or gallop Abdomen is soft nontender nondistended positive bowel sounds no hepatosplenomegaly Extremities no edema Neuro alert and orientated to 3 - Labs CBC & Chem 7: 08/29/18 11:10 08/29/18 11:10 Labs: Abnormal Lab Results - Last 24 Hours (Table) 08/27/18 08/28/18 08/28/18 Range/Units 08:34 17:19 20:39 Lymphocytes # (1.0-4.8) k/uL Sodium (137-145) mmol/L Carbon Dioxide (22-30) mmol/L BUN (9-20) mg/dL Creatinine (0.66-1.25) mg/dL Glucose (74-99) mg/dL POC Glucose (mg/dL) 166 H 233 H (75-99) mg/dL Procalcitonin 0.11 H (0.02-0.09) ng/mL 08/29/18 08/29/18 08/29/18 Range/Units 07:18 11:10 11:10 Lymphocytes # 0.5 L (1.0-4.8) k/uL Sodium 136 L (137-145) mmol/L Carbon Dioxide 19 L (22-30) mmol/L BUN 36 H (9-20) mg/dL Creatinine 1.51 H (0.66-1.25) mg/dL Glucose 278 H (74-99) mg/dL POC Glucose (mg/dL) 194 H (75-99) mg/dL Procalcitonin (0.02-0.09) ng/mL Microbiology - Last 24 Hours (Table) 08/27/18 00:28 Blood Culture - Preliminary Blood No Growth after 48 hours Assessment and Plan Assessment: 1. Influenza A. Patient started on Tamiflu. Patient has been febrile. Patient has been afebrile for 24 hours. Continue Tamiflu. Infectious disease is following. Rocephin has been added 2. COPD with possible pneumonia. Sputum culture has been ordered. Chest x- ray completed showing no acute pulmonary process. Patient started on Rocephin. DuoNeb breathing treatments ordered. Pulmonary service is consulted. V/Q showing low probability for PE. Solu-Medrol has been added per pulmonary 3. Acute kidney injury. Initial creatinine 1.9. Repeat creatinine 1.78. Creatinine continued to trend down 1.40. we'll continue to monitor closely. Patient's home dose of Aldactone remains on hold 4. History of atrial fibrillation. Patient currently not on anticoagulation. EKG completed in ER showing normal sinus rhythm 5. History of diabetes mellitus. Sliding scale and home medications reordered 6. History of GERD 7. History of hyperlipidemia 8. History of osteoarthritis 9. History of neuropathy DVT prophylaxis Lovenox. GI prophylaxis Protonix I performed an examination of the patient and discussed their management with the Nurse Practitioner. I have reviewed the Nurse Practitioner's notes and agree with the documented findings and plan of care
[2018-08-29 12:24] LABS: Glucose,Whole Blood 208 mg/dL (75-99)
[2018-08-29] MEDS: CHOLECALCIFEROL 1,000 UNIT TAB PO SCH (12:47)
--- NOTE | 2018-08-29 14:01 | P.PN ---
Subjective Progress Note Date: 08/29/18 08/29/2018: Patient seen and examined. Patient states he is feeling much better. He states he feels more clearheaded, he has not had any fevers, he has more energy, his breathing is markedly improved. He states he feels ready to go home. Objective - Vital Signs Vital signs: Vital Signs Temp 97.6 F 08/29/18 06:11 Pulse 79 08/29/18 07:38 Resp 18 08/29/18 06:11 BP 118/54 08/29/18 06:11 Pulse Ox 95 08/29/18 06:11 Intake & Output 08/28/18 08/29/18 08/29/18 18:59 06:59 18:59 Intake Total 350 Balance 350 Intake: Oral 350 Other: Voiding Method Toilet Toilet Toilet # Voids 3 2 # Bowel Movements 0 0 - Exam Gen.: Patient is alert and oriented 3, no acute distress, obese Cardiovascular: Regular rate and rhythm, S1/S2 Lungs: Improved air entry, clear Abdomen: Soft nontender nondistended positive bowel sounds Extremities: No edema - Labs CBC & Chem 7: 08/29/18 11:10 08/29/18 11:10 Labs: Abnormal Lab Results - Last 24 Hours (Table) 08/27/18 08/28/18 08/28/18 Range/Units 08:34 17:19 20:39 Lymphocytes # (1.0-4.8) k/uL Sodium (137-145) mmol/L Carbon Dioxide (22-30) mmol/L BUN (9-20) mg/dL Creatinine (0.66-1.25) mg/dL Glucose (74-99) mg/dL POC Glucose (mg/dL) 166 H 233 H (75-99) mg/dL Procalcitonin 0.11 H (0.02-0.09) ng/mL 08/29/18 08/29/18 08/29/18 Range/Units 07:18 11:10 11:10 Lymphocytes # 0.5 L (1.0-4.8) k/uL Sodium 136 L (137-145) mmol/L Carbon Dioxide 19 L (22-30) mmol/L BUN 36 H (9-20) mg/dL Creatinine 1.51 H (0.66-1.25) mg/dL Glucose 278 H (74-99) mg/dL POC Glucose (mg/dL) 194 H (75-99) mg/dL Procalcitonin (0.02-0.09) ng/mL 08/29/18 Range/Units 12:22 Lymphocytes # (1.0-4.8) k/uL Sodium (137-145) mmol/L Carbon Dioxide (22-30) mmol/L BUN (9-20) mg/dL Creatinine (0.66-1.25) mg/dL Glucose (74-99) mg/dL POC Glucose (mg/dL) 208 H (75-99) mg/dL Procalcitonin (0.02-0.09) ng/mL Microbiology - Last 24 Hours (Table) 08/27/18 00:28 Blood Culture - Preliminary Blood No Growth after 48 hours Assessment and Plan Assessment: Acute exacerbation of COPD Influenza A Dyslipidemia Diabetes mellitus type 2 uncontrolled Obesity Atrial fibrillation, paroxysmal, currently in normal sinus rhythm GERD History of neuropathy Continue Tamiflu for full course Antibiotics per ID Duo nebs Pulmicort Mucinex, Singulair Solu-Medrol taper, change to oral prednisone Incentive spirometry and pulmonary hygiene GI and DVT prophylaxis Increase activity Okay to discharge from pulmonary standpoint with follow-up in 2-3 days
--- NOTE | 2018-08-29 14:34 | PN ---
PROGRESS NOTE DATE OF SERVICE: 08/29/2018. REASON FOR FOLLOWUP: 1. Acute influenza. 2. Question of pneumonia. INTERVAL HISTORY: The patient is currently afebrile. He is feeling much better, breathing comfortably. Denies having any chest pain or any cough. No abdominal pain. No diarrhea. PHYSICAL EXAMINATION: Blood pressure 118/54 with a pulse of 72. Temperature 97.6. He is 95% on room air. General description is an elderly male up in the bed in no distress. Respiratory system: Unlabored breathing. Clear to auscultation anteriorly. No wheeze or crackles. Heart S1, S2. Regular rate and rhythm. ABDOMEN: Soft, no tenderness. LABS: Hemoglobin 14.1, white count of 8.0, BUN of 36, creatinine 1.51. DIAGNOSTIC IMPRESSION AND PLAN: Patient admitted to the hospital with difficulty breathing. He did have a cough and fever, source likely acute influenza. Clinical suspicion low for underlying pneumonia as the patient currently no white count or any infiltrate seen on the chest x-ray x2. Recommend finish therapy with oral Tamiflu to finish a 5 day course of therapy. Continue supportive care. MMODL / IJN: [id number] /
[2018-08-29 17:31] LABS: Glucose,Whole Blood 158 mg/dL (75-99)
[2018-08-29 20:46] LABS: Glucose,Whole Blood 183 mg/dL (75-99)
[2018-08-29] MEDS: ATORVASTATIN 10 MG TAB PO SCH (22:25)
[2018-08-29] MEDS: PANTOPRAZOLE 40 MG TABLET PO SCH (22:25)
[2018-08-29] MEDS: guaiFENesin SYRUP 100MG/5ML 200 MG/10 ML CUP PO PRN (22:29)
[2018-08-29 22:51] VITALS: RESP 18
[2018-08-29] MEDS: SODIUM CHLORIDE 0.9% 1,000 ML IV SCH (23:25)
[2018-08-30 06:06] VITALS: BP 125/55; TEMP 98.7
[2018-08-30 07:16] LABS: Glucose,Whole Blood 162 mg/dL (75-99)
[2018-08-30] MEDS: IPRATROPIUM-ALBUTEROL 3 ML NEB INHALATION SCH (07:42)
[2018-08-30] MEDS: BUDESONIDE 0.5 MG/2 ML NEBU INHALATION SCH (07:43)
[2018-08-30 07:57] VITALS: PULSE 87
[2018-08-30] MEDS ORDERED: predniSONE 20 MG TAB PO SCH (09:00)
[2018-08-30] MEDS: hydrALAZINE HCL 10 MG TAB PO SCH (09:04)
[2018-08-30] MEDS: CHOLECALCIFEROL 1,000 UNIT TAB PO SCH (09:04)
[2018-08-30] MEDS: GABAPENTIN 400 MG CAP PO SCH (09:04)
[2018-08-30] MEDS: ENOXAPARIN 40 MG/0.4 ML SYRINGE SQ SCH (09:05)
[2018-08-30] MEDS: LORATADINE 10 MG TAB PO SCH (09:05)
[2018-08-30] MEDS: ASPIRIN 81 MG PO SCH (09:05)
[2018-08-30] MEDS: OSELTAMIVIR 60 MG/10 ML ORAL SYRINGE PO SCH (09:05)
[2018-08-30] MEDS: glipiZIDE 5 MG TAB PO SCH (09:05)
[2018-08-30] MEDS: TAMSULOSIN 0.4 MG CAP.ER.24H PO SCH (09:05)
[2018-08-30] MEDS: METOPROLOL SUCCINATE (ER) 50 MG TAB.ER.24H PO SCH (09:05)
[2018-08-30] MEDS: INSULIN ASPART (NovoLOG) 100 UNIT/ML VIAL SQ SCH (09:06)
[2018-08-30] MEDS: MONTELUKAST 10 MG TAB PO SCH (09:06)
[2018-08-30] MEDS: guaiFENesin SYRUP 100MG/5ML 200 MG/10 ML CUP PO PRN (09:19)
[2018-08-30 10:04] LABS: Basophils % (A) 0 %; Eosinophils # (A) 0.1 k/uL (0-0.7); Eosinophils % (A) 2 %; HCT 51.1 % (39.0-53.0); HGB 16.6 gm/dL (13.0-17.5); Lymphocytes # (A) 0.9 k/uL (1.0-4.8); Lymphocytes % (A) 11 %; MCH 30.6 pg (25.0-35.0); MCHC 32.6 g/dL (31.0-37.0); MCV 93.9 fL (80.0-100.0); Mean Platelet Volume 7.1; Monocytes # (A) 0.6 k/uL (0-1.0); Monocytes % (A) 8 %; Neutrophils # (A) 6.1 k/uL (1.3-7.7); Neutrophils % (A) 78 %; Platelet Count 171 k/uL (150-450); RBC 5.44 m/uL (4.30-5.90); RDW 13.9 % (11.5-15.5); WBC 7.8 k/uL (3.8-10.6)
[2018-08-30 10:18] LABS: Albumin 4.2 g/dL (3.5-5.0); Calcium 8.9 mg/dL (8.4-10.2); Potassium 4.8 mmol/L (3.5-5.1); Total Bilirubin 0.9 mg/dL (0.2-1.3); Total Protein 7.2 g/dL (6.3-8.2)
--- NOTE | 2018-08-30 10:40 | P.DS ---
Providers Date of admission: 08/27/18 14:12 Expected date of discharge: 08/30/18 Attending physician: Estefany Kimble Consults: 08/27/18 09:47 Consult Physician Routine Consulting Provider: Michael Correa Consult Reason/Comments: established patient. flu A. COPD Do you want consulting provider notified?: Yes 08/27/18 14:23 Consult Physician Routine Consulting Provider: Nheal Bowden Consult Reason/Comments: influeza A, possible pneumonia Do you want consulting provider notified?: Yes Primary care physician: [facility] Course: Diagnoses on discharge: 1. Influenza A. Patient started on Tamiflu. Patient has been febrile. Patient has been afebrile for 24 hours. Continue Tamiflu. Infectious disease is following. Rocephin has been added 2. COPD with possible pneumonia. Sputum culture has been ordered. Chest x- ray completed showing no acute pulmonary process. Patient started on Rocephin. DuoNeb breathing treatments ordered. Pulmonary service is consulted. V/Q showing low probability for PE. Solu-Medrol has been added per pulmonary 3. Acute kidney injury. Initial creatinine 1.9. Repeat creatinine 1.78. Creatinine continued to trend down 1.40. we'll continue to monitor closely. Patient's home dose of Aldactone remains on hold 4. History of atrial fibrillation. Patient currently not on anticoagulation. EKG completed in ER showing normal sinus rhythm 5. History of diabetes mellitus. Sliding scale and home medications reordered 6. History of GERD 7. History of hyperlipidemia 8. History of osteoarthritis 9. History of neuropathy. Hospital course: This is a 73-year-old male patient who presented with complaints of increased shortness of breath. Patient has positive for influenza A. Patient reports that symptoms started about a week ago when she started feeling increasingly tired and weak. Patient also reports over the past few days he's been on and off with fevers and chills. Patient does have known past medical history of COPD which he follows with Dr. INO Correa for pulmonary. Additional medical history includes A. fib, diabetes mellitus, GERD, hyperlipidemia, osteoarthritis and pneumonia. Chest x-ray completed showing no evidence for acute pulmonary disease. Patient's d-dimer elevated at 0.88. VQ scan was completed due to renal function and showed low probability of pulmonary present. Suspect underlying COPD. EKG completed showing normal sinus rhythm normal EKG. patient started on Tamiflu and Rocephin. Dr. INO Correa consulted for pulmonary care. At this time patient remains febrile with chills. Patient denies chest pain. Patient denies any nausea vomiting or diarrhea. Patient denies any urinary burning or frequency On 08/28/2018 patient is feeling much improved. Patient has been afebrile for 24 hours. Patient is being followed by pulmonary and infectious disease. Patient maintained on Tamiflu and Rocephin. She denies chest pain or shortness breath. Patient denies nausea vomiting or diarrhea. Patient denies any urinary burning or frequency. Patient also on IV Solu-Medrol per pulmonary. On 08/29/2018 patient is alert and oriented 3. Patient does report he feels much improved. Patient states the afebrile. Patient remains on IV Solu-Medrol , antibiotics and Tamiflu time. At this time patient denies chest pain or shortness of breath. Patient denies nausea vomiting or diarrhea. Patient denies any urinary burning or frequency. On 08/30/2018 patient was seen and examined on the medical floor he is alert and oriented 3 in no apparent distress he is still complaining of cough otherwise no complaints at this time he feels ready to go home there is no chest pain no shortness of breath no fever or chills no headache or dizziness no nausea or vomiting no abdominal pain no diarrhea and no urinary symptoms. Patient was given Tamiflu for 3 more doses he was also given Ceftin 500 mg for 6 more doses and was given prednisone 40 mg tapering down dose he will be followed in our office in 2-3 days Patient Condition at Discharge: Serious Plan - Discharge Summary New Discharge Prescriptions: New Cefuroxime Axetil [Ceftin] 500 mg PO BID 3 Days #6 tab Oseltamivir Phosphate 45 mg PO AC-BID #3 capsule predniSONE 10 mg PO DAILY #30 tab Continue Pantoprazole Sodium 40 mg PO HS glipiZIDE [Glucotrol] 5 mg PO AC-BID Atorvastatin Calcium [Lipitor] 10 mg PO HS Albuterol Inhaler [Ventolin Hfa Inhaler] 1 - 2 puff INHALATION RT-QID PRN PRN Reason: Shortness Of Breath Metoprolol Succinate [Toprol XL] 50 mg PO DAILY Spironolactone [Aldactone] 25 mg PO DAILY Montelukast [Singulair] 10 mg PO DAILY Ipratropium-Albuterol Nebulize [Duoneb 0.5 mg-3 mg/3 ml Soln] 3 ml INHALATION RT-TID hydrALAZINE HCL [Apresoline] 10 mg PO BID Gabapentin [Neurontin] 400 mg PO TID Tamsulosin HCl [Flomax] 0.4 mg PO DAILY Cetirizine HCl [Zyrtec] 10 mg PO DAILY Budesonide [Pulmicort] 0.5 mg INHALATION RT-BID Aspirin [Dickenson Aspirin EC] 81 mg PO DAILY Cholecalciferol (Vitamin D3) [Vitamin D3] 2,000 unit PO DAILY Discharge Medication List Pantoprazole Sodium 40 mg PO HS 07/05/14 [History] Albuterol Inhaler [Ventolin Hfa Inhaler] 1 - 2 puff INHALATION RT-QID PRN [History] Atorvastatin Calcium [Lipitor] 10 mg PO HS 02/20/17 [History] Metoprolol Succinate [Toprol XL] 50 mg PO DAILY 02/20/17 [History] glipiZIDE [Glucotrol] 5 mg PO AC-BID 02/20/17 [History] Aspirin [Dickenson Aspirin EC] 81 mg PO DAILY 08/26/18 [History] Budesonide [Pulmicort] 0.5 mg INHALATION RT-BID 08/26/18 [History] Cetirizine HCl [Zyrtec] 10 mg PO DAILY 08/26/18 [History] Cholecalciferol (Vitamin D3) [Vitamin D3] 2,000 unit PO DAILY 08/26/18 [History] Gabapentin [Neurontin] 400 mg PO TID 08/26/18 [History] Ipratropium-Albuterol Nebulize [Duoneb 0.5 mg-3 mg/3 ml Soln] 3 ml INHALATION RT -TID 08/26/18 [History] Montelukast [Singulair] 10 mg PO DAILY 08/26/18 [History] Spironolactone [Aldactone] 25 mg PO DAILY 08/26/18 [History] Tamsulosin HCl [Flomax] 0.4 mg PO DAILY 08/26/18 [History] hydrALAZINE HCL [Apresoline] 10 mg PO BID 08/26/18 [History] Cefuroxime Axetil [Ceftin] 500 mg PO BID 3 Days #6 tab 08/30/18 [Rx] Oseltamivir Phosphate 45 mg PO AC-BID #3 capsule 08/30/18 [Rx] predniSONE 10 mg PO DAILY #30 tab 08/30/18 [Rx] Follow up Appointment(s)/Referral(s): Estefany Kimble MD [Primary Care Provider] - 1-2 days
== END 2018-08-30 11:44 | disposition home or self-care (01) | DRG 194 ==
LOC: EC 12:59 → 4MS4W 16:29 → OBSVTOIN 08-27 14:12
PROVIDERS: ADMIT Internal Medicine; ATTEND Internal Medicine
DX: J10.00 Influenza due to other identified influenza virus with unspecified type of pneumonia (principal); J44.0 Chronic obstructive pulmonary disease with (acute) lower respiratory infection; J44.1 Chronic obstructive pulmonary disease with (acute) exacerbation; N17.9 Acute kidney failure, unspecified; E11.40 Type 2 diabetes mellitus with diabetic neuropathy, unspecified; E11.65 Type 2 diabetes mellitus with hyperglycemia; E66.9 Obesity, unspecified; E78.5 Hyperlipidemia, unspecified; I10 Essential (primary) hypertension; I48.0 Paroxysmal atrial fibrillation; J61 Pneumoconiosis due to asbestos and other mineral fibers; K21.9 Gastro-esophageal reflux disease without esophagitis; J18.9 Pneumonia, unspecified organism; Z77.090 Contact with and (suspected) exposure to asbestos; Z79.82 Long term (current) use of aspirin; Z79.84 Long term (current) use of oral hypoglycemic drugs; Z79.899 Other long term (current) drug therapy; Z82.49 Family history of ischemic heart disease and other diseases of the circulatory system; Z87.01 Personal history of pneumonia (recurrent); Z87.891 Personal history of nicotine dependence; Z96.653 Presence of artificial knee joint, bilateral; Z98.42 Cataract extraction status, left eye; Z98.41 Cataract extraction status, right eye; I25.10 Atherosclerotic heart disease of native coronary artery without angina pectoris; Z95.5 Presence of coronary angioplasty implant and graft; Z68.35 Body mass index [BMI] 35.0-35.9, adult
CPT/HCPCS: 36415; 71046; 78582; 80048; 80053; 83036; 83735; 83880; 84145; 84484; 85025; 85379; 85610; 85730; 87040; 87502; 93005; 94640; 96360; 96361; 99285

== ENCOUNTER → 2019-02-12 | Outpatient (CLI) | payer MEDICARE, OTHER | LOC: LABPAT 12:23 | PROVIDERS: ATTEND Orthopaedic Surgery | DX: Z01.812 Encounter for preprocedural laboratory examination (principal); M16.11 Unilateral primary osteoarthritis, right hip | CPT/HCPCS: 82565; 84520; 86850; 86900; 86901; 87070 ==

== ENCOUNTER 2019-02-22 06:26 | Inpatient (IN) | payer MEDICARE, OTHER ==
[2019-02-11 16:34] VITALS: BMI 35.7
[2019-02-19] MEDS: TIMOLOL 0.5% OPHTH DROPS 5 ML BTL BOTH EYES SCH (09:30)
--- NOTE | 2019-02-21 10:03 | HP ---
HISTORY AND PHYSICAL SURGERY: 02/22/2019 Maurice Velarde is a 73-year-old patient seen with symptomatic right hip osteoarthritis. We discussed options for treatment. He elected to proceed with direct anterior right total hip arthroplasty. Consent regarding the procedure was obtained. Preoperative clearance was provided by Dr. Kimble. PAST MEDICAL HISTORY: [id number] diabetes, hypertension, hyperlipidemia, gastroesophageal reflux disease. PAST SURGICAL HISTORY: Knee arthroscopy, spine fusion. DAILY MEDICATIONS: Flomax, glipizide, Lipitor, pantoprazole, spironolactone. ALLERGIES: BENICAR and PENICILLIN. SOCIAL HISTORY: He denies current tobacco use. PHYSICAL EXAMINATION: Physical evaluation his right hip: He has limited range of motion with severe pain. Diffuse tenderness about the hip girdle. Positive hip impingement sign. Straight leg raise is negative. His distal neurovascular exam is intact. RADIOGRAPHS: Radiographs of the right hip reveals severe osteoarthritic changes. IMPRESSION: 1. Right hip osteoarthritis. 2. Hypertension. 3. Hyperlipidemia. 4. Tik-rucwbqh-[id number] diabetes. 5. Gastroesophageal reflux disease. PLAN: Direct anterior right total hip arthroplasty. MMODL / IJN: [id number] /
[~2019-02-22 06:26] MED LIST: ACETAMINOPHEN TAB 500 MG TAB PO ONE; DEXAMETHASONE SOD PHOSPHATE 10 MG/ML 1 ML VIAL IV ONE; HYDROmorphone 0.5 MG/0.5 ML SYRINGE IVP PRN; LIDOCAINE 1% 20 ML VIAL (10MG/ML) FOR IV START INTRADERMA PRN; MELOXICAM 7.5 MG TAB PO ONE; ONDANSETRON 4 MG/2 ML VIAL IVP PRN; TRANEXAMIC ACID 1,000 MG in SODIUM CHLORIDE 0.9% 100 ML IVPB ONE
[2019-02-22 07:17] LABS: Glucose,Whole Blood 127 mg/dL (75-99)
[2019-02-22] MEDS: LACTATED RINGERS 1,000 ML IV SCH ×4 (07:18→23:33)
[2019-02-22] MEDS ORDERED: fentaNYL (PF) 50 MCG/ML 2 ML AMP ONE (07:24)
[2019-02-22] MEDS ORDERED: TRANEXAMIC ACID 1,000 MG/10 ML VIAL ONE (07:24)
[2019-02-22] MEDS ORDERED: SODIUM CHLORIDE 0.9% 100 ML BAG ONE (07:24)
[2019-02-22] MEDS ORDERED: MIDAZOLAM 2 MG/2 ML VIAL ONE (07:24)
[2019-02-22] MEDS ORDERED: PHENYLEPHRINE-0.9% NACL SYG 1 MG/10 ML SYRINGE ONE (07:24)
[2019-02-22] MEDS ORDERED: PROPOFOL 10 MG/ML 20 ML VIAL IV ONE (07:24)
[2019-02-22] MEDS ORDERED: ceFAZolin 3,000 MG in SODIUM CHLORIDE 0.9% IRRIGATIO 3,000 ML IRRIGATION ONE (08:05)
[2019-02-22] MEDS ORDERED: ROPIVACAINE 246.25 MG, EPINEPHrine 0.5 MG, KETOROLAC 30 MG, cloNIDine HCL/PF 80 MCG, WA... MISCELLANE ONE ×5 (08:08)
[2019-02-22] MEDS ORDERED: LACTATED RINGERS 1,000 ML IV ONE (09:00)
[2019-02-22] MEDS ORDERED: traMADol 50 MG TAB PO PRN (09:25)
[2019-02-22] MEDS ORDERED: ONDANSETRON 4 MG/2 ML VIAL IVP PRN (09:25)
[2019-02-22] MEDS ORDERED: HYDROmorphone 0.5 MG/0.5 ML SYRINGE IVP PRN ×3 (09:25)
[2019-02-22] MEDS ORDERED: NALOXONE 0.4 MG/ML 1 ML VIAL IV PRN (09:25)
--- NOTE | 2019-02-22 09:25 | P.OP ---
Date of Procedure: 02/22/19 Preoperative Diagnosis: Right hip osteoarthritis Postoperative Diagnosis: Right hip osteoarthritis Procedure(s) Performed: Direct anterior right total hip arthroplasty Implants: 1. Depuy Corail KA size 11 press-fit femoral stem 2. Depuy pinnacle 56 mm press-fit acetabular shell 3. Depuy pinnacle neutral polyethylene liner 36 mm ID 56 mm OD 4. Biolox delta ceramic femoral head +1.5 36 mm Anesthesia: local, spinal Surgeon: Marco Chi Hyperbaric Welder Diver #1: Lambert Hendrix Estimated Blood Loss (ml): 250 Pathology: other (Femoral head) Condition: stable Disposition: PACU Indications for Procedure: 73-year-old patient seen with symptomatic right hip osteoarthritis. After treatment options were discussed, he elected to proceed with total hip arthroplasty. Operative Findings: see description of procedure Description of Procedure: The patient was taken to the operative suite. Patient underwent a spinal anesthetic by the department of anesthesia. Patient was then transferred to the Nelson table. Patient was given preoperative IV antibiotics and TXA. Both lower extremities were placed in standard leg spars. The hip was then prepped and draped in the normal sterile orthopedic fashion. A standard anterior incision was made beginning 3 cm lateral and 1 cm distal to the ASIS extending 10 cm. Dissection was then carried down through the subcutaneous soft tissues down to the fascia overlying the tensor fascia jose manuel. An incision was now made through the fascia. Careful dissection was taken down exposing the tensor fascia jose manuel muscle. A Cobra retractor was now placed along the medial femoral neck and a second one along the lateral femoral neck. The venous circumflex vessels were now identified, cauterized and clipped. We identified the anterior hip capsule. An incision was made through the hip capsule along the lateral border. I performed a partial anterior capsulectomy. Retractors were now placed around the femoral neck itself. A femoral neck cut was now made with a sagittal saw. It was completed with an osteotome at the lateral neck area. The femoral head was now removed without difficulty. The extremity was now rotated to 45 of ext ernal rotation. It was locked in position. Residual labrum was now debrided out. Serial reaming was performed of the acetabulum while Hilario RICKS assisted holding an anterior retractor for exposure. Once we reached the appropriate size and a trial was position and fit nicely. The appropriate size was now chosen opened and made available. It was introduced into the acetabulum without difficulty. The C-arm/fluoroscopy was now brought into the operative field. We made sure we had a true AP pelvic view. We now under direct C- arm/fluoroscopy introduced into the acetabular component with appropriate version and inclination. I held the cup in appropriate position well Hilario RICKS used a mallet to seat the acetabular component. I noted the component now to be well seated and stable. Acetabular cup introduce her was removed. The C-arm was pulled back. An appropriate liner was introduced and clicked into position. It was felt to be stable. At this point retractors were removed. The extremity was now placed into 120 external rotation with no traction. The leg was now dropped to the ground and adducted. Appropriate retractors were now positioned along the proximal femur. We also placed our femoral look into position. Additional capsular releasing was performed to gain access to the proximal femur. We now used a box osteotome. A canal finder was now utilized. Serial broaching was now performed with the assistance of Hilario RICKS tapping the broaches down with a mallet while held the broach in appropriate rotation and position. This was done until we reached the appropriate size with good overall rotational stability. Appropriate calcar planing was performed. A trial head/neck was placed into position. The hip was now reduced. The C-arm/fluoroscopy was brought back into the operative field. I noted good positioning of the components. An AP pelvis demonstrated lesser trochanters to be equally positioned for determining leg length. The C-arm/fluoroscopy was pulled back. Retractors were repositioned and the hip was dislocated. The leg was again taken down to the ground and adducted. Appropriate retractors were repositioned as well as the femoral hook. All trial components were removed. The femoral implant was opened along with the femoral head. The femoral implant was introduced on the appropriate handle into our pre-broached area. I held the component position while Hilario RICKS used a mallet to seat the femoral component. The femoral component was now noted to be well seated and stable.. The femoral head was introduced with good positioning and fixation noted. Retractors were now removed. The hip was now reduced. There appeared be good positioning of the hip confirmed on intraoperative fluoroscopy. Spot films were obtained to document this. A second gram of TXA was given. The deep and superficial soft tissues were infiltrated with local analgesic. Bipolar cautery had been utilized intermittently through the procedure for hemostasis. The wound was irrigated copiously with pulse lavage mechanical irrigation. The fascia was repaired with Vicryl suture. The subcutaneous soft tissues were repaired in layers with Vicryl suture. The skin was approximated with pernio/Dermabond. Sterile dressings were applied. Patient was then awakened, transferred to a bed and taken to recovery in stable condition. Hilario RICKS assisted with the complex procedure.
--- NOTE | 2019-02-22 09:28 | XR ---
EXAMINATION TYPE: XR Hip Limited RT, FL guidance operating room DATE OF EXAM: 02/22/2019 CLINICAL HISTORY: Postoperative evaluation TECHNIQUE: Images right hip submitted. FINDINGS: Noted are changes of total hip arthroplasty with femoral and acetabular components appearin g well seated. Alignment is anatomic. Postsurgical soft tissue changes are evident. 29 SEC FLUORO, 1 IMAGE SCANNED IMPRESSION: Satisfactory postoperative alignment
[2019-02-22] MEDS ORDERED: ALBUTEROL INHALER 60 PUFF/8 GM INHALER INHALATION PRN (10:36)
--- NOTE | 2019-02-22 11:19 | P.CONS ---
History of Present Illness - Reason for Consult Consult date: 02/22/19 Medical management Requesting physician: Marco Chi - Chief Complaint Right hip arthroplasty - History of Present Illness This is a 73-year-old male patient of Dr. Dr. Kimble. Patient presented for an elective right hip arthroplasty due to right hip osteoarthritis with Dr. Chi. Patient has a known past medical history of diabetes mellitus, GERD, hyperlipidemia, osteoarthritis, not pneumonia, neuropathy, previous history of atrial fibrillation not currently on anticoagulation anymore. Patient denies smoking quit 20 years previous. Additional surgical history includes pain without total left knee arthroplasty and cataract removal. Patient is currently resting comfortably in bed. Family at bedside. Patient denies any significant pain to right hip. Good pedal pulses noted. At this time patient denies chest pain or shortness of breath. Patient denies nausea vomiting or diarrhea. Patient denies any urinary burning or frequency Review of Systems please refer to HPI otherwise unremarkable. Past Medical History Past Medical History: Atrial Fibrillation, Diabetes Mellitus, GERD/Reflux, Hyperlipidemia, Osteoarthritis (OA), Pneumonia Additional Past Medical History / Comment(s): NEUROPATHY History of Any Multi-Drug Resistant Organisms: None Reported Past Surgical History: Adenoidectomy, Hernia Repair, Joint Replacement, Orthopedic Surgery, Tonsillectomy Additional Past Surgical History / Comment(s): NECK SURGERY X4, TOTAL LEFT KNEE, CTR BOTH HANDS, cataract removal bilat., cardiac cath 03/2016 Past Anesthesia/Blood Transfusion Reactions: No Reported Reaction Past Alcohol Use History: None Reported - Past Family History Father Family Medical History: Pulmonary Embolus Additional Family Medical History / Comment(s): from PE in his 50s Mother Family Medical History: Coronary Artery Disease (CAD), Hypertension Medications and Allergies Home Medications Medication Instructions Recorded Confirmed Type Albuterol Inhaler [Ventolin Hfa 1 - 2 puff INHALATION RT-QID PRN 02/20/17 02/22/19 History Inhaler] Atorvastatin Calcium [Lipitor] 10 mg PO HS 02/20/17 02/22/19 History Metoprolol Succinate [Toprol XL] 50 mg PO DAILY 02/20/17 02/22/19 History glipiZIDE [Glucotrol] 5 mg PO AC-BID 02/20/17 02/22/19 History Aspirin [Ball Aspirin EC] 81 mg PO HS 08/26/18 02/22/19 History Budesonide [Pulmicort] 1 applic INHALATION RT-BID 08/26/18 02/22/19 History Cetirizine HCl [Zyrtec] 10 mg PO DAILY 08/26/18 02/22/19 History Spironolactone [Aldactone] 25 mg PO DAILY 08/26/18 02/22/19 History Tamsulosin HCl [Flomax] 0.4 mg PO DAILY 08/26/18 02/22/19 History hydrALAZINE HCL [Apresoline] 10 mg PO BID 08/26/18 02/22/19 History Acetaminophen [Tylenol Arthritis] 1,300 mg PO BID 02/11/19 02/22/19 History Ipratropium-Albuterol Nebulize 3 ml INHALATION RT-QID PRN 02/11/19 02/22/19 History [Duoneb 0.5 mg-3 mg/3 ml Soln] Omalizumab [Xolair] 300 mg SQ Q14D 02/11/19 02/22/19 History Timolol 0.5% Ophth Soln [Timoptic 1 drop BOTH EYES BID 02/11/19 02/22/19 History 0.5% Ophth Soln] Allergies Allergy/AdvReac Type Severity Reaction Status Date / Time codeine Allergy PROBLEMS Verified 02/22/19 10:22 WITH BLADDER Physical Exam Vitals: Vital Signs Temp Pulse Pulse Resp BP Pulse Ox 02/22/19 10:32 64 18 98/53 95 02/22/19 10:17 66 18 97/55 95 02/22/19 10:02 71 18 98/55 93 L 02/22/19 09:45 97.6 F 78 16 97/55 96 02/22/19 07:19 97.8 F 86 17 151/75 97 Intake and Output 02/21/19 02/22/19 02/22/19 22:59 06:59 14:59 Intake Total 1651 Output Total 250 Balance 1401 Intake: IV 1651 Output: Estimated Blood Loss 250 Other: Weight 99.9 kg Head normocephalic Neck supple Lungs clear to auscultation bilaterally no wheezing or crackles Heart regular rate and rhythm S1-S2, no rub or gallop Abdomen is soft nontender nondistended positive bowel sounds no hepatosplenomegaly Extremities no edema. Right hip dressing clean dry and intact Neuro alert and orientated to 3 Results Labs: Abnormal Lab Results - Last 24 Hours (Table) 02/22/19 Range/Units 07:15 POC Glucose (mg/dL) 127 H (75-99) mg/dL Assessment and Plan Assessment: 1. status post total right hip arthroplasty with Dr. Chi. 2. History of diabetes mellitus. Patient's home dose of glipizide resume sliding scale insulin added 3. History of GERD 4. History of osteoarthritis 5. History of pneumonia 6. Previous history of atrial fibrillation. Patient reports he was on antegrade ablation for multiple years but was DC'd by PCP due to patient having no further episodes of irregular rhythm DVT prophylaxis Lovenox. GI prophylaxis Pepcid DC planning to subacute rehab social work supervisor consulted Thank you for this consultation we'll continue to follow patient closely throughout stay Time with Patient: Greater than 30 (Greater than 60% of the total time spent in counseling and coordination of care. I performed an examination of the patient and discussed their management with the Nurse Practitioner. I have reviewed the Nurse Practitioner's notes and agree with the documented findings and plan of care)
[2019-02-22 11:53] LABS: Glucose,Whole Blood 175 mg/dL (75-99)
[2019-02-22] MEDS: HYDROcodone/APAP 5-325MG 1 EACH TAB PO PRN ×2 (12:41→17:54)
[2019-02-22 12:53] LABS: Albumin 3.9 g/dL (3.5-5.0); Calcium 8.8 mg/dL (8.4-10.2); Potassium 4.6 mmol/L (3.5-5.1); Total Bilirubin 0.7 mg/dL (0.2-1.3); Total Protein 6.6 g/dL (6.3-8.2)
[2019-02-22] MEDS: INSULIN ASPART (NovoLOG) 100 UNIT/ML VIAL SQ SCH ×3 (14:11→21:34)
[2019-02-22 17:05] LABS: Glucose,Whole Blood 234 mg/dL (75-99)
[2019-02-22] MEDS: glipiZIDE 5 MG TAB PO SCH (17:49)
[2019-02-22] MEDS: IPRATROPIUM-ALBUTEROL 3 ML NEB INHALATION PRN (20:17)
[2019-02-22] MEDS: BUDESONIDE 0.5 MG/2 ML NEBU INHALATION SCH ×2 (20:17→20:36)
[2019-02-22] MEDS: hydrALAZINE HCL 10 MG TAB PO SCH (21:26)
[2019-02-22 21:30] LABS: Glucose,Whole Blood 178 mg/dL (75-99)
[2019-02-22] MEDS: ATORVASTATIN 10 MG TAB PO SCH (21:34)
[2019-02-22] MEDS: SENNOSIDES-DOCUSATE SODIUM 1 EACH TAB PO SCH (21:35)
[2019-02-22] MEDS: TIMOLOL 0.5% OPHTH DROPS 5 ML BTL BOTH EYES SCH ×2 (21:37→22:21)
[2019-02-23] MEDS: HYDROcodone/APAP 5-325MG 1 EACH TAB PO PRN ×4 (03:40→22:13)
[2019-02-23 07:05] LABS: Glucose,Whole Blood 123 mg/dL (75-99)
[2019-02-23 07:24] LABS: Basophils % (A) 0 %; Eosinophils # (A) 0.1 k/uL (0-0.7); Eosinophils % (A) 1 %; HCT 39.1 % (39.0-53.0); Lymphocytes # (A) 0.9 k/uL (1.0-4.8); Lymphocytes % (A) 11 %; MCH 30.7 pg (25.0-35.0); MCHC 32.6 g/dL (31.0-37.0); MCV 93.9 fL (80.0-100.0); Mean Platelet Volume 7.2; Monocytes # (A) 0.7 k/uL (0-1.0); Monocytes % (A) 8 %; Neutrophils # (A) 6.4 k/uL (1.3-7.7); Neutrophils % (A) 77 %; Platelet Count 146 k/uL (150-450); RBC 4.16 m/uL (4.30-5.90); RDW 15.2 % (11.5-15.5); WBC 8.3 k/uL (3.8-10.6)
[2019-02-23 07:30] LABS: HGB 12.8 gm/dL (13.0-17.5)
[2019-02-23 07:35] LABS: Albumin 3.3 g/dL (3.5-5.0); Calcium 8.5 mg/dL (8.4-10.2); Potassium 4.7 mmol/L (3.5-5.1); Total Bilirubin 0.7 mg/dL (0.2-1.3); Total Protein 5.7 g/dL (6.3-8.2)
[2019-02-23] MEDS: BUDESONIDE 0.5 MG/2 ML NEBU INHALATION SCH ×2 (08:30→19:52)
[2019-02-23] MEDS: IPRATROPIUM-ALBUTEROL 3 ML NEB INHALATION PRN ×2 (08:30→19:52)
[2019-02-23] MEDS: INSULIN ASPART (NovoLOG) 100 UNIT/ML VIAL SQ SCH ×4 (09:07→20:31)
[2019-02-23] MEDS: hydrALAZINE HCL 10 MG TAB PO SCH ×2 (09:10→20:40)
[2019-02-23] MEDS: ENOXAPARIN 40 MG/0.4 ML SYRINGE SQ SCH (09:10)
[2019-02-23] MEDS: SPIRONOLACTONE 25 MG TAB PO SCH (09:10)
[2019-02-23] MEDS: glipiZIDE 5 MG TAB PO SCH ×3 (09:10→18:13)
[2019-02-23] MEDS: METOPROLOL SUCCINATE (ER) 50 MG TAB.ER.24H PO SCH (09:10)
[2019-02-23] MEDS: LORATADINE 10 MG TAB PO SCH (09:11)
[2019-02-23] MEDS: MELOXICAM 7.5 MG TAB PO SCH (09:11)
[2019-02-23] MEDS: TAMSULOSIN 0.4 MG CAP.ER.24H PO SCH (09:11)
[2019-02-23] MEDS: FAMOTIDINE 20 MG TAB PO SCH (09:11)
--- NOTE | 2019-02-23 10:15 | P.PN ---
Subjective Progress Note Date: 02/23/19 This is a 73-year-old male patient of Dr. Dr. Kimble. Patient presented for an elective right hip arthroplasty due to right hip osteoarthritis with Dr. Chi. Patient has a known past medical history of diabetes mellitus, GERD, hyperlipidemia, osteoarthritis, not pneumonia, neuropathy, previous history of atrial fibrillation not currently on anticoagulation anymore. Patient denies smoking quit 20 years previous. Additional surgical history includes pain without total left knee arthroplasty and cataract removal. Patient is currently resting comfortably in bed. Family at bedside. Patient denies any significant pain to right hip. Good pedal pulses noted. At this time patient denies chest pain or shortness of breath. Patient denies nausea vomiting or diarrhea. Patient denies any urinary burning or frequency On 02/23/2019 patient is alert and oriented 3. Patient is having some inc reased pain to right hip area. Patient reports he has been up in relating to bathroom awaiting physical therapy to ambulate in hallway. Patient denies chest pain or shortness of breath. Patient denies nausea vomiting or diarrhea. Patient denies any urinary burning or frequency. Objective - Vital Signs Vital signs: Vital Signs Temp 99 F 02/23/19 07:00 Pulse 70 02/23/19 08:43 Resp 16 02/23/19 07:00 BP 115/69 02/23/19 07:00 Pulse Ox 95 02/23/19 07:00 Intake & Output 02/22/19 02/23/19 02/23/19 18:59 06:59 18:59 Intake Total 2391 1310 Output Total 250 1 Balance 2141 1309 Weight 99.9 kg Intake: IV 1651 Intake, IV Titration 1010 Amount Lactated Ringers 1,000 ml 960 @ 80 mls/hr IV .[id number] REYNA Rx#:[id number] ceFAZolin 2 gm In Sodium 50 Chloride 0.9% 50 ml @ 100 mls/hr IVPB Q8H REYNA Rx#: [id number] Oral 740 300 Output: Urine 1 Estimated Blood Loss 250 Other: Voiding Method Toilet # Voids 300 3 - Exam Head normocephalic Neck supple Lungs clear to auscultation bilaterally no wheezing or crackles Heart regular rate and rhythm S1-S2, no rub or gallop Abdomen is soft nontender nondistended positive bowel sounds no hepatosplenomega ly Extremities no edema. Right hip dressing clean dry and intact Neuro alert and orientated to 3 - Labs CBC & Chem 7: 02/23/19 06:24 02/23/19 06:24 Labs: Abnormal Lab Results - Last 24 Hours (Table) 02/22/19 02/22/19 02/22/19 Range/Units 11:48 11:52 17:04 RBC (4.30-5.90) m/uL Hgb (13.0-17.5) gm/dL Plt Count (150-450) k/uL Lymphocytes # (1.0-4.8) k/uL Carbon Dioxide 21 L (22-30) mmol/L BUN 24 H (9-20) mg/dL Creatinine 1.59 H (0.66-1.25) mg/dL Glucose 178 H (74-99) mg/dL POC Glucose (mg/dL) 175 H 234 H (75-99) mg/dL AST (17-59) U/L Total Protein (6.3-8.2) g/dL Albumin (3.5-5.0) g/dL 02/22/19 02/23/19 02/23/19 Range/Units 21:29 06:24 06:24 RBC 4.16 L (4.30-5.90) m/uL Hgb 12.8 L D (13.0-17.5) gm/dL Plt Count 146 L (150-450) k/uL Lymphocytes # 0.9 L (1.0-4.8) k/uL Carbon Dioxide (22-30) mmol/L BUN 24 H (9-20) mg/dL Creatinine 1.40 H (0.66-1.25) mg/dL Glucose 129 H (74-99) mg/dL POC Glucose (mg/dL) 178 H (75-99) mg/dL AST 69 H (17-59) U/L Total Protein 5.7 L (6.3-8.2) g/dL Albumin 3.3 L (3.5-5.0) g/dL 02/23/19 Range/Units 07:03 RBC (4.30-5.90) m/uL Hgb (13.0-17.5) gm/dL Plt Count (150-450) k/uL Lymphocytes # (1.0-4.8) k/uL Carbon Dioxide (22-30) mmol/L BUN (9-20) mg/dL Creatinine (0.66-1.25) mg/dL Glucose (74-99) mg/dL POC Glucose (mg/dL) 123 H (75-99) mg/dL AST (17-59) U/L Total Protein (6.3-8.2) g/dL Albumin (3.5-5.0) g/dL Assessment and Plan Assessment: 1. status post total right hip arthroplasty with Dr. Chi. Patient is currently postop day 1 2. History of diabetes mellitus. Patient's home dose of glipizide resume sliding scale insulin added 3. History of GERD 4. History of osteoarthritis 5. History of pneumonia 6. Previous history of atrial fibrillation. Patient reports he was on antegrade ablation for multiple years but was DC'd by PCP due to patient having no further episodes of irregular rhythm 7. Chronic kidney disease stage III. Creatinine 1.40 this does appear improved from baseline. Patient reports that he has known chronic kidney disease and follows with nephrology services 8. Expected acute blood loss anemia secondary surgery. Hemoglobin 12.8. Ferrous sulfate will be ordered DVT prophylaxis Lovenox. GI prophylaxis Pepcid DC planning to subacute rehab social media marketing analyst consulted Thank you for this consultation we'll continue to follow patient closely th roughout stay I performed an examination of the patient and discussed their management with the Nurse Practitioner. I have reviewed the Nurse Practitioner's notes and agree with the documented findings and plan of care
[2019-02-23 12:03] LABS: Glucose,Whole Blood 107 mg/dL (75-99)
--- NOTE | 2019-02-23 13:02 | P.PN ---
Subjective Progress Note Date: 02/23/19 Principal diagnosis: Status post direct anterior right total hip arthroplasty Patient evaluated at bedside today, he has multiple family members present. He's ambulated with therapy today. He notes most discomfort in the thigh on the right side. Denies any chest pain or shortness of breath this time. Objective - Vital Signs Vital signs: Vital Signs Temp 99 F 02/23/19 07:00 Pulse 70 02/23/19 08:43 Resp 16 02/23/19 08:00 BP 115/69 02/23/19 07:00 Pulse Ox 95 02/23/19 07:00 Intake & Output 02/22/19 02/23/19 02/23/19 18:59 06:59 18:59 Intake Total 2391 1310 480 Output Total 250 1 Balance 2141 1309 480 Weight 99.9 kg Intake: IV 1651 Intake, IV Titration 1010 Amount Lactated Ringers 1,000 ml 960 @ 80 mls/hr IV .[id number] [facility] Rx#:[id number] ceFAZolin 2 gm In Sodium 50 Chloride 0.9% 50 ml @ 100 mls/hr IVPB Q8H [facility] Rx#: [id number] Oral 740 300 480 Output: Urine 1 Estimated Blood Loss 250 Other: Voiding Method Toilet Toilet # Voids 300 3 - Exam Right lower extremity: Incision is clean, dry, and intact. The exofin fusion tape is in good condition. There is minimal soft tissue swelling and ecchymosis surrounding the medial and lateral aspects of the incision. Calf is soft, no tenderness with palpation. Plantar flexion, dorsiflexion, EHL, FHL are intact. Sensory exam to light touch throughout the extremity is intact, dorsal pedis pulses 2+. - Labs CBC & Chem 7: 02/23/19 06:24 02/23/19 06:24 Labs: Abnormal Lab Results - Last 24 Hours (Table) 02/22/19 02/22/19 02/23/19 Range/Units 17:04 21:29 06:24 RBC 4.16 L (4.30-5.90) m/uL Hgb 12.8 L D (13.0-17.5) gm/dL Plt Count 146 L (150-450) k/uL Lymphocytes # 0.9 L (1.0-4.8) k/uL BUN (9-20) mg/dL Creatinine (0.66-1.25) mg/dL Glucose (74-99) mg/dL POC Glucose (mg/dL) 234 H 178 H (75-99) mg/dL AST (17-59) U/L Total Protein (6.3-8.2) g/dL Albumin (3.5-5.0) g/dL 02/23/19 02/23/19 02/23/19 Range/Units 06:24 07:03 12:00 RBC (4.30-5.90) m/uL Hgb (13.0-17.5) gm/dL Plt Count (150-450) k/uL Lymphocytes # (1.0-4.8) k/uL BUN 24 H (9-20) mg/dL Creatinine 1.40 H (0.66-1.25) mg/dL Glucose 129 H (74-99) mg/dL POC Glucose (mg/dL) 123 H 107 H (75-99) mg/dL AST 69 H (17-59) U/L Total Protein 5.7 L (6.3-8.2) g/dL Albumin 3.3 L (3.5-5.0) g/dL Assessment and Plan Plan: Assessment: Post op day #1 status post direct anterior total hip arthroplasty Plan: Pain control, continue current medication GI and DVT prophylaxis, continue current medication Wound care instructions discussed, daily dressing changes Continue icing of the hip region Encourage incentive spirometer Continue worker physical therapy Medical recommendations Discharge planning: Patient is a long, he has many steps at his house, including a tub that is very difficult for him to get into. Plan is for discharge to rehab in the next 2 days. Time with Patient: Less than 30
[2019-02-23 17:06] LABS: Glucose,Whole Blood 136 mg/dL (75-99)
[2019-02-23] MEDS: LACTATED RINGERS 1,000 ML IV SCH (18:15)
[2019-02-23 20:27] LABS: Glucose,Whole Blood 117 mg/dL (75-99)
[2019-02-23] MEDS: SENNOSIDES-DOCUSATE SODIUM 1 EACH TAB PO SCH (20:37)
[2019-02-23] MEDS: ATORVASTATIN 10 MG TAB PO SCH (20:38)
[2019-02-23] MEDS: FERROUS SULFATE 325 MG TAB PO SCH (20:38)
[2019-02-23] MEDS: TIMOLOL 0.5% OPHTH DROPS 5 ML BTL BOTH EYES SCH (20:38)
[2019-02-24] MEDS: LACTATED RINGERS 1,000 ML IV SCH ×3 (00:10→11:36)
[2019-02-24] MEDS: HYDROcodone/APAP 5-325MG 1 EACH TAB PO PRN ×3 (05:50→17:11)
[2019-02-24 07:19] LABS: Glucose,Whole Blood 126 mg/dL (75-99)
[2019-02-24] MEDS: hydrALAZINE HCL 10 MG TAB PO SCH ×2 (07:50→21:01)
[2019-02-24] MEDS: FAMOTIDINE 20 MG TAB PO SCH (07:50)
[2019-02-24] MEDS: LORATADINE 10 MG TAB PO SCH (07:50)
[2019-02-24] MEDS: METOPROLOL SUCCINATE (ER) 50 MG TAB.ER.24H PO SCH (07:50)
[2019-02-24] MEDS: ENOXAPARIN 40 MG/0.4 ML SYRINGE SQ SCH (07:51)
[2019-02-24] MEDS: SPIRONOLACTONE 25 MG TAB PO SCH (07:51)
[2019-02-24] MEDS: MELOXICAM 7.5 MG TAB PO SCH (07:51)
[2019-02-24] MEDS: FERROUS SULFATE 325 MG TAB PO SCH ×2 (07:51→20:56)
[2019-02-24] MEDS: TAMSULOSIN 0.4 MG CAP.ER.24H PO SCH (07:51)
[2019-02-24] MEDS: TIMOLOL 0.5% OPHTH DROPS 5 ML BTL BOTH EYES SCH ×2 (07:52→20:56)
[2019-02-24] MEDS: INSULIN ASPART (NovoLOG) 100 UNIT/ML VIAL SQ SCH ×4 (07:54→20:55)
[2019-02-24] MEDS: BUDESONIDE 0.5 MG/2 ML NEBU INHALATION SCH ×2 (08:08→20:00)
[2019-02-24 08:12] LABS: Albumin 3.6 g/dL (3.5-5.0); Calcium 8.8 mg/dL (8.4-10.2); Potassium 4.4 mmol/L (3.5-5.1); Total Bilirubin 0.8 mg/dL (0.2-1.3); Total Protein 6.2 g/dL (6.3-8.2)
--- NOTE | 2019-02-24 10:22 | P.PN ---
Subjective Progress Note Date: 02/24/19 This is a 73-year-old male patient of Dr. Dr. Kimble. Patient presented for an elective right hip arthroplasty due to right hip osteoarthritis with Dr. Chi. Patient has a known past medical history of diabetes mellitus, GERD, hyperlipidemia, osteoarthritis, not pneumonia, neuropathy, previous history of atrial fibrillation not currently on anticoagulation anymore. Patient denies smoking quit 20 years previous. Additional surgical history includes pain without total left knee arthroplasty and cataract removal. Patient is currently resting comfortably in bed. Family at bedside. Patient denies any significant pain to right hip. Good pedal pulses noted. At this time patient denies chest pain or shortness of breath. Patient denies nausea vomiting or diarrhea. Patient denies any urinary burning or frequency On 02/23/2019 patient is alert and oriented 3. Patient is having some inc reased pain to right hip area. Patient reports he has been up in relating to bathroom awaiting physical therapy to ambulate in hallway. Patient denies chest pain or shortness of breath. Patient denies nausea vomiting or diarrhea. Patient denies any urinary burning or frequency. On 02/24/2019 patient is alert and oriented 3. Patient is currently resting comfortably in bed still having some increased pain to right hip site. Patient denies chest pain or shortness breath. Patient denies nausea vomiting or diarrhea. Patient denies any urinary burning or frequency. Objective - Vital Signs Vital signs: Vital Signs Temp 99.1 F 02/24/19 07:00 Pulse 72 02/24/19 07:00 Resp 16 02/24/19 07:00 BP 120/68 02/24/19 07:00 Pulse Ox 94 L 02/24/19 07:00 Intake & Output 02/23/19 02/24/19 02/24/19 18:59 06:59 18:59 Intake Total 2080 1020 Balance 2080 1020 Intake: Intake, IV Titration 640 720 Amount Lactated Ringers 1,000 ml 640 720 @ 80 mls/hr IV .[id number] [facility] Rx#:[id number] Oral 1440 300 Other: Voiding Method Toilet Toilet # Voids 3 3 - Exam Head normocephalic Neck supple Lungs clear to auscultation bilaterally no wheezing or crackles Heart regular rate and rhythm S1-S2, no rub or gallop Abdomen is soft nontender nondistended positive bowel sounds no hepatosplenomegaly Extremities no edema. Right hip dressing clean dry and intact Neuro alert and orientated to 3 - Labs CBC & Chem 7: 02/23/19 06:24 02/24/19 06:35 Labs: Abnormal Lab Results - Last 24 Hours (Table) 02/23/19 02/23/19 02/23/19 Range/Units 12:00 17:05 20:25 BUN (9-20) mg/dL Creatinine (0.66-1.25) mg/dL Glucose (74-99) mg/dL POC Glucose (mg/dL) 107 H 136 H 117 H (75-99) mg/dL AST (17-59) U/L Total Protein (6.3-8.2) g/dL 02/24/19 02/24/19 Range/Units 06:35 07:15 BUN 21 H (9-20) mg/dL Creatinine 1.33 H (0.66-1.25) mg/dL Glucose 109 H (74-99) mg/dL POC Glucose (mg/dL) 126 H (75-99) mg/dL AST 83 H (17-59) U/L Total Protein 6.2 L (6.3-8.2) g/dL Assessment and Plan Assessment: 1. status post total right hip arthroplasty with Dr. Chi. Patient is currently postop day 2 2. History of diabetes mellitus. Patient's home dose of glipizide resume sliding scale insulin added 3. History of GERD 4. History of osteoarthritis 5. History of pneumonia 6. Previous history of atrial fibrillation. Patient reports he was on antegrade ablation for multiple years but was DC'd by PCP due to patient having no further episodes of irregular rhythm 7. Chronic kidney disease stage III. Creatinine 1.40 this does appear improved from baseline. Patient reports that he has known chronic kidney disease and follows with nephrology services 8. Expected acute blood loss anemia secondary surgery. Hemoglobin 12.8. Ferrous sulfate will be ordered DVT prophylaxis Lovenox. GI prophylaxis Pepcid DC planning to subacute rehab social worker palliative care consulted Thank you for this consultation we'll continue to follow patient closely throughout stay I performed an examination of the patient and discussed their management with the Nurse Practitioner. I have reviewed the Nurse Practitioner's notes and agree with the documented findings and plan of care
--- NOTE | 2019-02-24 11:04 | P.PN ---
Subjective Progress Note Date: 02/24/19 Principal diagnosis: Status post direct anterior right total hip arthroplasty Patient evaluated at bedside today. He's ambulated with therapy today. He notes most discomfort in the thigh on the right side. Denies any chest pain or shortness of breath this time. Objective - Vital Signs Vital signs: Vital Signs Temp 99.1 F 02/24/19 07:00 Pulse 72 02/24/19 07:00 Resp 16 02/24/19 08:00 BP 120/68 02/24/19 07:00 Pulse Ox 94 L 02/24/19 07:00 Intake & Output 02/23/19 02/24/19 02/24/19 18:59 06:59 18:59 Intake Total 2080 1020 Balance 2080 1020 Intake: Intake, IV Titration 640 720 Amount Lactated Ringers 1,000 ml 640 720 @ 80 mls/hr IV .[id number] [facility] Rx#:[id number] Oral 1440 300 Other: Voiding Method Toilet Toilet Toilet # Voids 3 3 - Exam Right lower extremity: Incision is clean, dry, and intact. The exofin fusion tape is in good condition. There is minimal soft tissue swelling and ecchymosis surrounding the medial and lateral aspects of the incision. Calf is soft, no tenderness with palpation. Plantar flexion, dorsiflexion, EHL, FHL are intact. Sensory exam to light touch throughout the extremity is intact, dorsal pedis pulses 2+. - Labs CBC & Chem 7: 02/23/19 06:24 02/24/19 06:35 Labs: Abnormal Lab Results - Last 24 Hours (Table) 02/23/19 02/23/19 02/23/19 Range/Units 12:00 17:05 20:25 BUN (9-20) mg/dL Creatinine (0.66-1.25) mg/dL Glucose (74-99) mg/dL POC Glucose (mg/dL) 107 H 136 H 117 H (75-99) mg/dL AST (17-59) U/L Total Protein (6.3-8.2) g/dL 02/24/19 02/24/19 Range/Units 06:35 07:15 BUN 21 H (9-20) mg/dL Creatinine 1.33 H (0.66-1.25) mg/dL Glucose 109 H (74-99) mg/dL POC Glucose (mg/dL) 126 H (75-99) mg/dL AST 83 H (17-59) U/L Total Protein 6.2 L (6.3-8.2) g/dL Assessment and Plan Plan: Assessment: Post op day #2 status post direct anterior total hip arthroplasty Plan: Pain control, continue current medication GI and DVT prophylaxis, continue current medication Wound care instructions discussed, daily dressing changes Continue icing of the hip region Encourage incentive spirometer Continue worker physical therapy Medical recommendations Discharge planning: Planning for discharge to rehab tomorrow Time with Patient: Less than 30
[2019-02-24 11:38] LABS: Glucose,Whole Blood 98 mg/dL (75-99)
[2019-02-24 14:04] LABS: Hemoglobin A1C 7.3 % (4.0-6.0)
[2019-02-24 16:58] LABS: Glucose,Whole Blood 120 mg/dL (75-99)
[2019-02-24] MEDS: glipiZIDE 5 MG TAB PO SCH (17:12)
[2019-02-24 20:46] LABS: Glucose,Whole Blood 148 mg/dL (75-99)
[2019-02-24] MEDS: ATORVASTATIN 10 MG TAB PO SCH (20:56)
[2019-02-24] MEDS: SENNOSIDES-DOCUSATE SODIUM 1 EACH TAB PO SCH (20:56)
[2019-02-25] MEDS: HYDROcodone/APAP 5-325MG 1 EACH TAB PO PRN ×3 (00:25→21:27)
[2019-02-25] MEDS: LACTATED RINGERS 1,000 ML IV SCH ×3 (01:55→21:26)
[2019-02-25] MEDS ORDERED: DILTIAZEM 125 MG in SODIUM CHLORIDE 0.9% 100 ML IV SCH (02:30)
[2019-02-25 06:22] LABS: Glucose,Whole Blood 149 mg/dL (75-99)
[2019-02-25] MEDS: glipiZIDE 5 MG TAB PO SCH ×2 (06:42→17:18)
[2019-02-25] MEDS: INSULIN ASPART (NovoLOG) 100 UNIT/ML VIAL SQ SCH ×4 (06:43→21:31)
[2019-02-25 06:57] LABS: Basophils # (A) 0.1 k/uL (0-0.2); Basophils % (A) 1 %; Eosinophils # (A) 0.2 k/uL (0-0.7); Eosinophils % (A) 3 %; HCT 42.3 % (39.0-53.0); HGB 14.1 gm/dL (13.0-17.5); Lymphocytes # (A) 1.5 k/uL (1.0-4.8); Lymphocytes % (A) 19 %; MCH 31.3 pg (25.0-35.0); MCHC 33.4 g/dL (31.0-37.0); MCV 93.7 fL (80.0-100.0); Monocytes # (A) 0.7 k/uL (0-1.0); Monocytes % (A) 10 %; Neutrophils # (A) 4.9 k/uL (1.3-7.7); Neutrophils % (A) 65 %; Platelet Count 200 k/uL (150-450); RBC 4.51 m/uL (4.30-5.90); RDW 13.3 % (11.5-15.5); WBC 7.5 k/uL (3.8-10.6)
[2019-02-25 07:07] LABS: Albumin 3.5 g/dL (3.5-5.0); Calcium 8.8 mg/dL (8.4-10.2); Magnesium 1.9 mg/dL (1.6-2.3); Potassium 4.5 mmol/L (3.5-5.1); Total Bilirubin 1.1 mg/dL (0.2-1.3); Total Protein 6.2 g/dL (6.3-8.2)
[2019-02-25] MEDS: BUDESONIDE 0.5 MG/2 ML NEBU INHALATION SCH ×2 (08:15→20:01)
[2019-02-25] MEDS: ENOXAPARIN 40 MG/0.4 ML SYRINGE SQ SCH (08:28)
[2019-02-25] MEDS: TAMSULOSIN 0.4 MG CAP.ER.24H PO SCH (08:28)
[2019-02-25] MEDS: hydrALAZINE HCL 10 MG TAB PO SCH ×2 (08:28→21:28)
[2019-02-25] MEDS: FERROUS SULFATE 325 MG TAB PO SCH ×2 (08:28→21:27)
[2019-02-25] MEDS: LORATADINE 10 MG TAB PO SCH (08:28)
[2019-02-25] MEDS: MELOXICAM 7.5 MG TAB PO SCH (08:28)
[2019-02-25] MEDS: METOPROLOL SUCCINATE (ER) 50 MG TAB.ER.24H PO SCH (08:29)
[2019-02-25] MEDS: SPIRONOLACTONE 25 MG TAB PO SCH (08:29)
[2019-02-25] MEDS: FAMOTIDINE 20 MG TAB PO SCH (08:29)
--- NOTE | 2019-02-25 08:41 | P.CRDCN ---
History of Present Illness Consult date: 02/25/19 Chief complaint: Paroxysmal atrial fibrillation History of present illness: This is a pleasant 73-year-old gentleman who currently does not follow-up with any taper/finisher with a past medical history significant for history of paroxysmal atrial fibrillation, diabetes, hypertension, dyslipidemia, osteoarthritis, was admitted to the hospital on 02/22/2019 and underwent an elective right hip surgery where he underwent anterior right hip arthroplasty. The surgery was uneventful. Postoperatively, the patient felt tired and fatigued. He was also found to be bradycardic. An EKG was performed and showed atrial fibrillation with RVR and subsequently the patient was transferred to the third floor for further evaluation and management. The patient currently denies any symptoms of chest pain or chest discomfort, shortness of breath, feeling of dizziness or lightheadedness, or any feeling of heart racing or fluttering in spite of heart rate between 100-120 bpm. The only think he stated he is feeling is being tired and fatigued. He stated that he was diagnosed with atrial fibrillation 12 years ago and at that point he was started on oral anticoagulation with Coumadin but that was stopped. No history of coronary artery disease and as a matter of fact he stated that he underwent a heart catheterization again about 12 years ago and that came in to be unremarkable. The patient used to follow-up with a taper/finisher but no follow-up for the last 5 years. Hemodynamically, he continues to be in atrial fibrillation with heart rate around 100 beats per minutes. Currently he is on Cardizem IV. He is on Cardizem IV at 5 mg per hour. Beside that he is on Toprol-XL at 50 mg by mouth daily. 4 anticoagulation he is on Lovenox which was started by the surgeon. At this point, I am going to obtain an echocardiogram was Doppler. We'll consider DC the Lovenox and start the patient on oral anticoagulation. Also I am going to wait for the echocardiogram to be performed, if the ejection fraction is normal, we might be able to wean him from the Cardizem IV and start him on Cardizem by mouth. The TSH was checked and came in to be unremarkable. Past Medical History Past Medical History: Atrial Fibrillation, Diabetes Mellitus, GERD/Reflux, Hyperlipidemia, Osteoarthritis (OA), Pneumonia Additional Past Medical History / Comment(s): NEUROPATHY History of Any Multi-Drug Resistant Organisms: None Reported Past Surgical History: Adenoidectomy, Hernia Repair, Joint Replacement, Orthopedic Surgery, Tonsillectomy Additional Past Surgical History / Comment(s): NECK SURGERY X4, TOTAL LEFT KNEE, CTR BOTH HANDS, cataract removal bilat., cardiac cath 03/2016 Past Anesthesia/Blood Transfusion Reactions: No Reported Reaction Past Psychological History: No Psychological Hx Reported Smoking Status: Former smoker Past Alcohol Use History: None Reported Additional Past Alcohol Use History / Comment(s): SMOKED 20 YEARS, QUIT 1978 Past Drug Use History: None Reported - Past Family History Father Family Medical History: Pulmonary Embolus Additional Family Medical History / Comment(s): from PE in his 50s Mother Family Medical History: Coronary Artery Disease (CAD), Hypertension Medications and Allergies Home Medications Medication Instructions Recorded Confirmed Type Albuterol Inhaler [Ventolin Hfa 1 - 2 puff INHALATION RT-QID PRN 02/20/17 02/22/19 History Inhaler] Atorvastatin Calcium [Lipitor] 10 mg PO HS 02/20/17 02/22/19 History Metoprolol Succinate [Toprol XL] 50 mg PO DAILY 02/20/17 02/22/19 History glipiZIDE [Glucotrol] 5 mg PO AC-BID 02/20/17 02/22/19 History Aspirin [Luquillo Aspirin EC] 81 mg PO HS 08/26/18 02/22/19 History Budesonide [Pulmicort] 1 applic INHALATION RT-BID 08/26/18 02/22/19 History Cetirizine HCl [Zyrtec] 10 mg PO DAILY 08/26/18 02/22/19 History Spironolactone [Aldactone] 25 mg PO DAILY 08/26/18 02/22/19 History Tamsulosin HCl [Flomax] 0.4 mg PO DAILY 08/26/18 02/22/19 History hydrALAZINE HCL [Apresoline] 10 mg PO BID 08/26/18 02/22/19 History Acetaminophen [Tylenol Arthritis] 1,300 mg PO BID 02/11/19 02/22/19 History Ipratropium-Albuterol Nebulize 3 ml INHALATION RT-QID PRN 02/11/19 02/22/19 History [Duoneb 0.5 mg-3 mg/3 ml Soln] Omalizumab [Xolair] 300 mg SQ Q14D 02/11/19 02/22/19 History Timolol 0.5% Ophth Soln [Timoptic 1 drop BOTH EYES BID 02/11/19 02/22/19 History 0.5% Ophth Soln] Allergies Allergy/AdvReac Type Severity Reaction Status Date / Time codeine Allergy PROBLEMS Verified 02/22/19 10:22 WITH BLADDER Physical Exam Vitals: Vital Signs Temp Pulse Pulse Pulse Pulse Resp BP 02/25/19 04:00 99.4 F 126 H 81 15 145/97 02/25/19 02:31 115 H 02/25/19 00:00 17 02/24/19 21:02 79 133/74 02/24/19 20:02 98.8 F 68 18 118/77 02/24/19 19:02 15 02/24/19 14:02 98 F 65 16 131/76 Pulse Ox 02/25/19 04:00 96 02/25/19 02:31 02/25/19 00:00 02/24/19 21:02 02/24/19 20:02 98 02/24/19 19:02 02/24/19 14:02 93 L Intake and Output 02/24/19 02/25/19 02/25/19 22:59 06:59 14:59 Intake Total 180 495 Balance 180 495 Intake: Intake, IV Titration 15 Amount Diltiazem 125 mg In 15 Sodium Chloride 0.9% 100 ml @ 5 MG/HR 5 mls/hr IV .Q24H [facility] Rx#:[id number] Oral 180 480 Other: Voiding Method Toilet Toilet # Voids 2 1 Weight 103.4 kg - Constitutional General appearance: no acute distress - Respiratory Respiratory: bilateral: CTA - Cardiovascular Rhythm: regular Heart sounds: normal: S1, S2 Abnormal Heart Sounds: systolic murmur Results 02/25/19 06:17 02/25/19 06:17 Cardiac Enzymes 02/25/19 Range/Units 06:17 AST 80 H (17-59) U/L CBC 02/25/19 Range/Units 06:17 WBC 7.5 (3.8-10.6) k/uL RBC 4.51 (4.30-5.90) m/uL Hgb 14.1 (13.0-17.5) gm/dL Hct 42.3 (39.0-53.0) % Plt Count 200 (150-450) k/uL Comprehensive Metabolic Panel 02/25/19 Range/Units 06:17 Sodium 138 (137-145) mmol/L Potassium 4.5 (3.5-5.1) mmol/L Chloride 105 (98-107) mmol/L Carbon Dioxide 24 (22-30) mmol/L BUN 17 (9-20) mg/dL Creatinine 1.23 (0.66-1.25) mg/dL Glucose 138 H (74-99) mg/dL Calcium 8.8 (8.4-10.2) mg/dL AST 80 H (17-59) U/L ALT 31 (21-72) U/L Alkaline Phosphatase 49 (38-126) U/L Total Protein 6.2 L (6.3-8.2) g/dL Albumin 3.5 (3.5-5.0) g/dL Current Medications Generic Name Dose Route Start Last Admin Trade Name Freq PRN Reason Stop Dose Admin Hydrocodone Bitart/Acetaminophen 2 each 02/22/19 09:25 02/25/19 00:25 Swatara 5-325 PO 2 each Q6HR PRN Administration Pain Scale 6 to 10 Hydrocodone Bitart/Acetaminophen 1 each 02/22/19 09:25 Swatara 5-325 PO Q6HR PRN Pain Scale 1 to 5 Albuterol/Ipratropium 3 ml 02/22/19 10:36 02/23/19 19:52 Duoneb 0.5 Mg-3 Mg/3 Ml Soln INHALATION 3 ml RT-QID PRN Administration Shortness Of Breath Atorvastatin Calcium 10 mg 02/22/19 21:00 02/24/19 20:56 Lipitor PO 10 mg HS RE[facility]NA Administration Budesonide 0.5 mg 02/22/19 20:00 02/25/19 08:15 Pulmicort INHALATION Not Given RT-BID RE[facility] Enoxaparin Sodium 40 mg 02/23/19 09:00 02/25/19 08:28 Lovenox SQ 40 mg DAILY RE[facility] Administration Famotidine 20 mg 02/23/19 09:00 02/25/19 08:29 Pepcid PO 20 mg DAILY RE[facility]NA Administration Ferrous Sulfate 325 mg 02/23/19 21:00 02/25/19 08:28 Feosol PO 325 mg BID RE[facility]NA Administration Glipizide 5 mg 02/22/19 17:30 02/25/19 06:42 Glucotrol PO 5 mg AC-BID RE[facility]NA Administration Hydralazine HCl 10 mg 02/22/19 21:00 02/25/19 08:28 Apresoline PO 10 mg BID RE[facility]NA Administration Hydromorphone HCl 0.5 mg 02/22/19 09:25 Dilaudid IVP Q3HR PRN Pain Scale 7 to 10 Hydromorphone HCl 0.25 mg 02/22/19 09:25 Dilaudid IVP Q3HR PRN Pain Scale 4 to 6 Hydromorphone HCl 0.125 mg 02/22/19 09:25 Dilaudid IVP Q3HR PRN Pain Scale 1 to 3 Lactated Ringer's 1,000 mls @ 20 mls/hr 02/22/19 06:00 02/25/19 03:13 Lactated Ringers IV Not Given .Q24H [facility] Lactated Ringer's 1,000 mls @ 80 mls/hr 02/22/19 09:30 02/25/19 01:55 Lactated Ringers IV Not Given .[id number] [facility] Diltiazem HCl 125 mg/ Sodium 125 mls @ 5 mls/hr 02/25/19 02:30 02/25/19 03:12 Chloride IV 5 mg/hr .Q24H [facility] 5 mls/hr Administration 5 MG/HR Insulin Aspart 0 unit 02/22/19 12:30 02/25/19 06:43 Novolog SQ 1 unit ACHS RE[facility]NA Administration Protocol Lidocaine HCl 0.1 ml 02/22/19 06:00 .Xylocaine 1% Inj (10mg/Ml) For Iv Start INTRADERMA PER PROTOCOL PRN IV Start Loratadine 10 mg 02/23/19 09:00 02/25/19 08:28 Claritin PO 10 mg DAILY RE[facility]NA Administration Meloxicam 7.5 mg 02/23/19 09:00 02/25/19 08:28 Mobic PO 7.5 mg DAILY RE[facility]NA Administration Metoprolol Succinate 50 mg 02/23/19 09:00 02/25/19 08:29 Toprol Xl PO 50 mg DAILY RE[facility]NA Administration Naloxone HCl 0.2 mg 02/22/19 09:25 Narcan IV Q2M PRN Opioid Reversal Ondansetron HCl 4 mg 02/22/19 09:25 Zofran IVP DAILY PRN Nausea And Vomiting Senna/Docusate Sodium 2 each 02/22/19 21:00 02/24/19 20:56 Senokot-S PO 2 each HS RE[facility]NA Administration Spironolactone 25 mg 02/23/19 09:00 02/25/19 08:29 Aldactone PO 25 mg DAILY RE[facility] Administration Tamsulosin HCl 0.4 mg 02/23/19 09:00 02/25/19 08:28 Flomax PO 0.4 mg DAILY RE[facility] Administration Timolol Maleate 1 drops 02/22/19 21:00 02/24/19 20:56 Timoptic BOTH EYES 1 drops BID RE[facility]NA Administration Tramadol HCl 50 mg 02/22/19 09:25 Ultram PO Q6H PRN Mild to Moderate Pain Intake and Output 02/24/19 02/25/19 02/25/19 22:59 06:59 14:59 Intake Total 180 495 Balance 180 495 Intake: Intake, IV Titration 15 Amount Diltiazem 125 mg In 15 Sodium Chloride 0.9% 100 ml @ 5 MG/HR 5 mls/hr IV .Q24H [facility] Rx#:[id number] Oral 180 480 Other: Voiding Method Toilet Toilet # Voids 2 1 Weight 103.4 kg 02/25/19 06:17 02/25/19 06:17 Assessment and Plan Assessment: Assessment #1 status post right hip arthroplasty #2 atrial fibrillation with RVR #3 history of paroxysmal atrial fibrillation #4 hypertension #5 dyslipidemia #6 diabetes mellitus Plan #1 continue Cardizem IV for now. #2 follow-up on the echocardiogram. #3 severe oral anticoagulation #4 the TSH was checked and came in to be unremarkable #5 continue Toprol-XL #6 follow-up with the patient Thank you for allowing us participate in his care
--- NOTE | 2019-02-25 09:52 | P.PN ---
Subjective Progress Note Date: 02/25/19 This is a 73-year-old male patient of Dr. Dr. Kimble. Patient presented for an elective right hip arthroplasty due to right hip osteoarthritis with Dr. Chi. Patient has a known past medical history of diabetes mellitus, GERD, hyperlipidemia, osteoarthritis, not pneumonia, neuropathy, previous history of atrial fibrillation not currently on anticoagulation anymore. Patient denies smoking quit 20 years previous. Additional surgical history includes pain without total left knee arthroplasty and cataract removal. Patient is currently resting comfortably in bed. Family at bedside. Patient denies any significant pain to right hip. Good pedal pulses noted. At this time patient denies chest pain or shortness of breath. Patient denies nausea vomiting or diarrhea. Patient denies any urinary burning or frequency On 02/23/2019 patient is alert and oriented 3. Patient is having some inc reased pain to right hip area. Patient reports he has been up in relating to bathroom awaiting physical therapy to ambulate in hallway. Patient denies chest pain or shortness of breath. Patient denies nausea vomiting or diarrhea. Patient denies any urinary burning or frequency. On 02/24/2019 patient is alert and oriented 3. Patient is currently resting comfortably in bed still having some increased pain to right hip site. Patient denies chest pain or shortness breath. Patient denies nausea vomiting or diarrhea. Patient denies any urinary burning or frequency. On 02/25/2019 patient was transferred to telemetry yesterday evening due to patient going into atrial fibrillation with rapid ventricular response. Patient having elevated heart rate. Patient does have a history of A. fib but had not had any episodes in the past 10 years. Cardiology services have been consulted discussed case with or so and cardiology plans to switch patient to eliquis for anticoagulation and 2-D echo has been ordered. At this time patient is asymptomatic. Patient denies chest pain. Patient denies shortness of breath. Patient denies nausea vomiting or diarrhea. Patient denies any urinary burning or frequency Objective - Vital Signs Vital signs: Vital Signs Temp 99.4 F 02/25/19 04:00 Pulse 102 H 02/25/19 08:00 Resp 16 02/25/19 08:00 BP 108/64 02/25/19 08:00 Pulse Ox 94 L 02/25/19 08:00 Intake & Output 02/24/19 02/25/19 02/25/19 18:59 06:59 18:59 Intake Total 380 495 Balance 380 495 Weight 103.4 kg Intake: Intake, IV Titration 15 Amount Diltiazem 125 mg In 15 Sodium Chloride 0.9% 100 ml @ 5 MG/HR 5 mls/hr IV .Q24H [facility] Rx#:[id number] Oral 380 480 Other: Voiding Method Toilet Toilet # Voids 1 - Exam Head normocephalic Neck supple Lungs clear to auscultation bilaterally no wheezing or crackles Heart regular rate and rhythm S1-S2, no rub or gallop Abdomen is soft nontender nondistended positive bowel sounds no hepatosplenomegaly Extremities no edema. Right hip dressing clean dry and intact Neuro alert and orientated to 3 - Labs CBC & Chem 7: 02/25/19 06:17 02/25/19 06:17 Labs: Abnormal Lab Results - Last 24 Hours (Table) 02/24/19 02/24/19 02/24/19 Range/Units 06:35 16:57 20:35 Glucose (74-99) mg/dL POC Glucose (mg/dL) 120 H 148 H (75-99) mg/dL Hemoglobin A1c 7.3 H (4.0-6.0) % AST (17-59) U/L Total Protein (6.3-8.2) g/dL 02/25/19 02/25/19 Range/Units 06:17 06:21 Glucose 138 H (74-99) mg/dL POC Glucose (mg/dL) 149 H (75-99) mg/dL Hemoglobin A1c (4.0-6.0) % AST 80 H (17-59) U/L Total Protein 6.2 L (6.3-8.2) g/dL Assessment and Plan Assessment: 1. status post total right hip arthroplasty with Dr. Chi. Patient is currently postop day 2 2. Atrophic relation with rapid ventricular response. Patient transferred to telemetry floor. Cardiology services have been consulted. Patient started on Cardizem. Discussed case with orthostatic and cardiology services plans to start patient on eliquis for anticoagulation. 2-D echo has been ordered 3. History of diabetes mellitus. Patient's home dose of glipizide resume sliding scale insulin added 4. History of GERD 5. History of osteoarthritis 6. History of pneumonia 7. Previous history of atrial fibrillation. Patient reports he was on anticoagulation for multiple years but was DC'd by PCP due to patient having no further episodes of irregular rhythm 8. Chronic kidney disease stage III. Creatinine 1.40 this does appear improved from baseline. Patient reports that he has known chronic kidney disease and follows with nephrology services 9. Expected acute blood loss anemia secondary surgery. Hemoglobin 12.8. Ferrous sulfate will be ordered DVT prophylaxis Lovenox. GI prophylaxis Pepcid DC planning to subacute rehab socially responsible investment adviser consulted Thank you for this consultation we'll continue to follow patient closely throughout stay I performed an examination of the patient and discussed their management with the Nurse Practitioner. I have reviewed the Nurse Practitioner's notes and agree with the documented findings and plan of care
[2019-02-25 10:34] LABS: Magnesium 1.9 mg/dL (1.6-2.3)
--- NOTE | 2019-02-25 11:17 | ECHOF ---
Referral Reason:a.fib MEASUREMENTS -------- HEIGHT: 152.4 cm WEIGHT: 117.9 kg BP: IVSd: 1.3 cm (0.6 - 1.1) LVIDd: 3.6 cm (3.9 - 5.3) LVPWd: 1.1 cm (0.6 - 1.1) IVSs: 1.4 cm LVIDs: 2.9 cm LVPWs: 1.4 cm Ao Diam: 2.9 cm (2.0 - 3.7) LA Diam: 3.4 cm (2.7 - 3.8) AV Cusp: 0.9 cm (1.5 - 2.6) EPSS: 0.2 cm MV E Durga: 0.73 m/s MV DecT: 111 ms MV A Durga: 0.00 m/s MV E/A Ratio: 800.03 RAP: 5.00 mmHg RVSP: 19.91 mmHg MV EF SLOPE: 118.48 mm/s (70 - 150) MV EXCURSION: 11.71 mm (> 18.000) FINDINGS -------- Atrial fibrillation. This was a techncally difficult study with suboptimal views, , Lumason utilized for enhancement of im ages. The left ventricular size is normal. There is mild concentric left ventricular hypertrophy. Overa ll left ventricular systolic function is normal with, an EF between 55 - 60 %. Left ventricular alisa limg pressure cannot be estimated due to Atrial fibrillation. The right ventricle is normal in size. The left atrial size is normal. The right atrial size is normal. 5.0mg OF Lumason UTLIZED: 2 OR MORE WALL SEGMENTS NOT VISUALIZED. The aortic valve is trileaflet, and appears structurally normal. No aortic stenosis or regurgitation. Mild mitral annular calcification present. Mild mitral regurgitation is present. Mild tricuspid regurgitation present. Right ventricular systolic pressure is normal at < 35 mmHg. There is no evidence of pulmonary hypertension. There is no pulmonic regurgitation present. There is no pericardial effusion. CONCLUSIONS -------- 1. Atrial fibrillation. 2. This was a techncally difficult study with suboptimal views, , Lumason utilized for enhancement of images. 3. The left ventricular size is normal. 4. There is mild concentric left ventricular hypertrophy. 5. Left ventricular fillimg pressure cannot be estimated due to Atrial fibrillation. 6. The right ventricle is normal in size. 7. The left atrial size is normal. 8. The right atrial size is normal. 9. 5.0mg OF Lumason UTLIZED: 2 OR MORE WALL SEGMENTS NOT VISUALIZED. 10. The aortic valve is trileaflet, and appears structurally normal. No aortic stenosis or regurgitat ion. 11. Mild mitral annular calcification present. 12. Mild mitral regurgitation is present. 13. Mild tricuspid regurgitation present. 14. Right ventricular systolic pressure is normal at < 35 mmHg. 15. There is no evidence of pulmonary hypertension. 16. There is no pulmonic regurgitation present. 17. There is no pericardial effusion. RESTAURANT SHIFT LEADER: Tammy Caal RDCS
[2019-02-25 11:37] LABS: Glucose,Whole Blood 176 mg/dL (75-99)
--- NOTE | 2019-02-25 12:21 | P.PN ---
Subjective Progress Note Date: 02/25/19 Principal diagnosis: Status post direct anterior right total hip arthroplasty Patient evaluated today on the cardiac stepdown unit. Patient was transferred their early this morning, he developed A. fib with her ER. Patient does have a history of this, he's been asymptomatic for 10 years. Patient has been seen by cardiology. Currently denies any chest pain or shortness of breath. Objective - Vital Signs Vital signs: Vital Signs Temp 99.4 F 02/25/19 04:00 Pulse 102 H 02/25/19 08:00 Resp 16 02/25/19 11:50 BP 108/64 02/25/19 08:00 Pulse Ox 94 L 02/25/19 08:00 Intake & Output 02/24/19 02/25/19 02/25/19 18:59 06:59 18:59 Intake Total 380 495 Balance 380 495 Weight 103.4 kg Intake: Intake, IV Titration 15 Amount Diltiazem 125 mg In 15 Sodium Chloride 0.9% 100 ml @ 5 MG/HR 5 mls/hr IV .Q24H [facility] Rx#:[id number] Oral 380 480 Other: Voiding Method Toilet Toilet Toilet # Voids 1 - Exam Right lower extremity: Incision is clean, dry, and intact. The exofin fusion tape is in good condition. There is minimal soft tissue swelling and ecchymosis surrounding the medial and lateral aspects of the incision. Calf is soft, no tenderness with palpation. Plantar flexion, dorsiflexion, EHL, FHL are intact. Sensory exam to light touch throughout the extremity is intact, dorsal pedis pulses 2+. - Labs CBC & Chem 7: 02/25/19 06:17 02/25/19 06:17 Labs: Abnormal Lab Results - Last 24 Hours (Table) 02/24/19 02/24/19 02/24/19 Range/Units 06:35 16:57 20:35 Glucose (74-99) mg/dL POC Glucose (mg/dL) 120 H 148 H (75-99) mg/dL Hemoglobin A1c 7.3 H (4.0-6.0) % AST (17-59) U/L Total Protein (6.3-8.2) g/dL 02/25/19 02/25/19 02/25/19 Range/Units 06:17 06:21 11:31 Glucose 138 H (74-99) mg/dL POC Glucose (mg/dL) 149 H 176 H (75-99) mg/dL Hemoglobin A1c (4.0-6.0) % AST 80 H (17-59) U/L Total Protein 6.2 L (6.3-8.2) g/dL Assessment and Plan Plan: Assessment: Post op day #3 status post direct anterior total hip arthroplasty Plan: Pain control, continue current medication GI and DVT prophylaxis, patient will be started on Eliquis Wound care instructions discussed, daily dressing changes Continue icing of the hip region Encourage incentive spirometer Continue worker physical therapy Other medical office worker and recommendations Discharge planning: Hopeful discharge to rehab tomorrow Time with Patient: Less than 30
[2019-02-25] MEDS: APIXABAN 5 MG TAB PO SCH ×2 (12:22→21:27)
[2019-02-25] MEDS: TIMOLOL 0.5% OPHTH DROPS 5 ML BTL BOTH EYES SCH ×2 (16:32→21:28)
[2019-02-25 17:10] LABS: Glucose,Whole Blood 138 mg/dL (75-99)
[2019-02-25 20:36] LABS: Glucose,Whole Blood 127 mg/dL (75-99)
[2019-02-25] MEDS: ATORVASTATIN 10 MG TAB PO SCH (21:28)
[2019-02-25] MEDS: SENNOSIDES-DOCUSATE SODIUM 1 EACH TAB PO SCH (21:28)
[2019-02-26] MEDS: LACTATED RINGERS 1,000 ML IV SCH ×2 (02:01→06:14)
[2019-02-26 06:15] LABS: Glucose,Whole Blood 104 mg/dL (75-99)
[2019-02-26] MEDS: INSULIN ASPART (NovoLOG) 100 UNIT/ML VIAL SQ SCH (06:18)
[2019-02-26] MEDS: glipiZIDE 5 MG TAB PO SCH (06:46)
[2019-02-26] MEDS: HYDROcodone/APAP 5-325MG 1 EACH TAB PO PRN (07:01)
[2019-02-26] MEDS: BUDESONIDE 0.5 MG/2 ML NEBU INHALATION SCH (07:13)
[2019-02-26 07:14] LABS: Albumin 3.1 g/dL (3.5-5.0); Calcium 8.3 mg/dL (8.4-10.2); Potassium 4.4 mmol/L (3.5-5.1); Total Bilirubin 1.1 mg/dL (0.2-1.3); Total Protein 5.6 g/dL (6.3-8.2)
[2019-02-26] MEDS: MELOXICAM 7.5 MG TAB PO SCH (08:18)
[2019-02-26] MEDS: LORATADINE 10 MG TAB PO SCH (08:18)
[2019-02-26] MEDS: METOPROLOL SUCCINATE (ER) 50 MG TAB.ER.24H PO SCH (08:18)
[2019-02-26] MEDS: FAMOTIDINE 20 MG TAB PO SCH (08:18)
[2019-02-26] MEDS: SPIRONOLACTONE 25 MG TAB PO SCH (08:18)
[2019-02-26] MEDS: APIXABAN 5 MG TAB PO SCH (08:19)
[2019-02-26] MEDS: FERROUS SULFATE 325 MG TAB PO SCH (08:19)
[2019-02-26] MEDS: hydrALAZINE HCL 10 MG TAB PO SCH (08:19)
[2019-02-26] MEDS: TAMSULOSIN 0.4 MG CAP.ER.24H PO SCH (08:19)
--- NOTE | 2019-02-26 09:51 | P.PN ---
Subjective Progress Note Date: 02/26/19 This is a 73-year-old male patient of . Patient presented for an elective right hip arthroplasty due to right hip osteoarthritis with Dr. Chi. Patient has a known past medical history of diabetes mellitus, GERD, hyperlipidemia, osteoarthritis, not pneumonia, neuropathy, previous history of atrial fibrillation not currently on anticoagulation anymore. Patient denies smoking quit 20 years previous. Additional surgical history includes pain without total left knee arthroplasty and cataract removal. Patient is currently resting comfortably in bed. Family at bedside. Patient denies any significant pain to right hip. Good pedal pulses noted. At this time patient denies chest pain or shortness of breath. Patient denies nausea vomiting or diarrhea. Patient denies any urinary burning or frequency On 02/23/2019 patient is alert and oriented 3. Patient is having some increase d pain to right hip area. Patient reports he has been up in relating to bathroom awaiting physical therapy to ambulate in hallway. Patient denies chest pain or shortness of breath. Patient denies nausea vomiting or diarrhea. Patient denies any urinary burning or frequency. On 02/24/2019 patient is alert and oriented 3. Patient is currently resting comfortably in bed still having some increased pain to right hip site. Patient denies chest pain or shortness breath. Patient denies nausea vomiting or diarrhea. Patient denies any urinary burning or frequency. On 02/25/2019 patient was transferred to telemetry yesterday evening due to patient going into atrial fibrillation with rapid ventricular response. Patient having elevated heart rate. Patient does have a history of A. fib but had not had any episodes in the past 10 years. Cardiology services have been consulted discussed case with or so and cardiology plans to switch patient to eliquis for anticoagulation and 2-D echo has been ordered. At this time patient is asymptomatic. Patient denies chest pain. Patient denies shortness of breath. Patient denies nausea vomiting or diarrhea. Patient denies any urinary burning or frequency On 02/26/2019 patient has been converted to normal sinus rhythm since midnight. Heart rate has been controlled. Patient is maintained on eliquis now for anticoagulation. Patient denies any chest pains or shortness of breath. Patient denies nausea vomiting or diarrhea. Patient denies any urinary burning or frequency. Patient has been cleared for discharge per nursing staff by cardiology. Patient to be DC'd to ECF facility Objective - Vital Signs Vital signs: Vital Signs Temp 97.5 F L 02/26/19 04:00 Pulse 74 02/26/19 04:00 Resp 17 02/26/19 04:00 BP 102/56 02/26/19 04:00 Pulse Ox 98 02/26/19 04:00 Intake & Output 02/25/19 02/26/19 02/26/19 18:59 06:59 18:59 Intake Total 645 960 360 Balance 645 960 360 Weight 103.8 kg Intake: Intake, IV Titration 35 0 Amount Diltiazem 125 mg In 35 0 Sodium Chloride 0.9% 100 ml @ 5 MG/HR 5 mls/hr IV .Q24H [facility] Rx#:[id number] Lactated Ringers 1,000 ml 0 @ 0 mls/hr IV .STK-MED ONE Rx#:[id number] Lactated Ringers 1,000 ml 0 @ 20 mls/hr IV .Q24H [facility] Rx#:[id number] Lactated Ringers 1,000 ml 0 @ 80 mls/hr IV .[id number] [facility] Rx#:[id number] Oral 610 960 360 Other: Voiding Method Toilet Toilet # Voids 1 # Bowel Movements 1 - Exam Head normocephalic Neck supple Lungs clear to auscultation bilaterally no wheezing or crackles Heart regular rate and rhythm S1-S2, no rub or gallop Abdomen is soft nontender nondistended positive bowel sounds no hepatosplenomega ly Extremities no edema. Right hip dressing clean dry and intact Neuro alert and orientated to 3 - Labs CBC & Chem 7: 02/25/19 06:17 02/26/19 06:45 Labs: Abnormal Lab Results - Last 24 Hours (Table) 02/25/19 02/25/19 02/25/19 Range/Units 11:31 16:46 20:26 Glucose (74-99) mg/dL POC Glucose (mg/dL) 176 H 138 H 127 H (75-99) mg/dL Calcium (8.4-10.2) mg/dL AST (17-59) U/L Total Protein (6.3-8.2) g/dL Albumin (3.5-5.0) g/dL 02/26/19 02/26/19 Range/Units 06:14 06:45 Glucose 106 H (74-99) mg/dL POC Glucose (mg/dL) 104 H (75-99) mg/dL Calcium 8.3 L (8.4-10.2) mg/dL AST 79 H (17-59) U/L Total Protein 5.6 L (6.3-8.2) g/dL Albumin 3.1 L (3.5-5.0) g/dL Assessment and Plan Assessment: 1. status post total right hip arthroplasty with Dr. Chi. Patient is currently postop day 3 2. atrial fibrillation with rapid ventricular response. Patient transferred to telemetry floor. Cardiology services have been consulted. Patient started on Cardizem. Discussed case with orthostatic and cardiology services plans to start patient on eliquis for anticoagulation. 2-D echo completed showing an EF of 55-60%. Patient has converted back to normal sinus rhythm. Maintained on eliquis for anticoagulation. 3. History of diabetes mellitus. Patient's home dose of glipizide resume sliding scale insulin added 4. History of GERD 5. History of osteoarthritis 6. History of pneumonia 7. Previous history of atrial fibrillation. Patient reports he was on anticoagulation for multiple years but was DC'd by PCP due to patient having no further episodes of irregular rhythm 8. Chronic kidney disease stage III. Creatinine 1.40 this does appear improved from baseline. Patient reports that he has known chronic kidney disease and follows with nephrology services 9. Expected acute blood loss anemia secondary surgery. Hemoglobin 12.8. Ferrous sulfate will be ordered DVT prophylaxis Lovenox. GI prophylaxis Pepcid DC planning to subacute rehab manager social responsibility consulted Thank you for this consultation we'll continue to follow patient closely throughout stay I performed an examination of the patient and discussed their management with the Nurse Practitioner. I have reviewed the Nurse Practitioner's notes and agree with the documented findings and plan of care
[2019-02-26 10:04] VITALS: BP 126/77; PULSE 78; RESP 16; TEMP 99
--- NOTE | 2019-02-26 10:08 | P.PN ---
Subjective Progress Note Date: 02/26/19 Principal diagnosis: Paroxysmal atrial fibrillation This is a pleasant 73-year-old gentleman who currently does not follow-up with any rn gynecology with a past medical history significant for history of paroxysmal atrial fibrillation, diabetes, hypertension, dyslipidemia, osteoa rthritis, was admitted to the hospital on 02/22/2019 and underwent an elective right hip surgery where he underwent anterior right hip arthroplasty. The surgery was uneventful. Postoperatively, the patient felt tired and fatigued. He was also found to be bradycardic. An EKG was performed and showed atrial fibrillation with RVR and subsequently the patient was transferred to the third floor for further evaluation and management. The patient currently denies any symptoms of chest pain or chest discomfort, shortness of breath, feeling of dizziness or lightheadedness, or any feeling of heart racing or fluttering in spite of heart rate between 100-120 bpm. The only think he stated he is feeling is being tired and fatigued. He stated that he was diagnosed with atrial fibrillation 12 years ago and at that point he was started on oral anticoagulation with Coumadin but that was stopped. No history of coronary artery disease and as a matter of fact he stated that he underwent a heart cat heterization again about 12 years ago and that came in to be unremarkable. The patient used to follow-up with a rn gynecology but no follow-up for the last 5 years. Hemodynamically, he continues to be in atrial fibrillation with heart rate around 100 beats per minutes. Currently he is on Cardizem IV. He is on Cardizem IV at 5 mg per hour. Beside that he is on Toprol-XL at 50 mg by mouth daily. 4 anticoagulation he is on Lovenox which was started by the surgeon. At this point, I am going to obtain an echocardiogram was Doppler. We'll consider DC the Lovenox and start the patient on oral anticoagulation. Also I am going to wait for the echocardiogram to be performed, if the ejection fraction is normal, we might be able to wean him from the Cardizem IV and start him on Cardizem by mouth. The TSH was checked and came in to be unremarkable. On follow-up with the patient today, 02/26/2019, the patient converted into normal sinus mechanism. He was started on oral anticoagulation yesterday. He was also started on metoprolol. Hemodynamically he is stable. Clinically he is asymptomatic. The patient can be discharged home later on today. Objective - Vital Signs Vital signs: Vital Signs Temp 99.0 F 02/26/19 08:00 Pulse 78 02/26/19 08:00 Resp 16 02/26/19 08:00 BP 126/77 02/26/19 08:00 Pulse Ox 99 02/26/19 08:00 Intake & Output 02/25/19 02/26/19 02/26/19 18:59 06:59 18:59 Intake Total 645 960 360 Balance 645 960 360 Weight 103.8 kg Intake: Intake, IV Titration 35 0 Amount Diltiazem 125 mg In 35 0 Sodium Chloride 0.9% 100 ml @ 5 MG/HR 5 mls/hr IV .Q24H [facility] Rx#:[id number] Lactated Ringers 1,000 ml 0 @ 0 mls/hr IV .STK-MED ONE Rx#:[id number] Lactated Ringers 1,000 ml 0 @ 20 mls/hr IV .Q24H [facility] Rx#:[id number] Lactated Ringers 1,000 ml 0 @ 80 mls/hr IV .[id number] [facility] Rx#:[id number] Oral 610 960 360 Other: Voiding Method Toilet Toilet Toilet # Voids 1 # Bowel Movements 1 - Constitutional General appearance: Present: no acute distress - Respiratory Respiratory: bilateral: CTA - Cardiovascular Rhythm: regular Heart sounds: normal: S1, S2 - Labs CBC & Chem 7: 02/25/19 06:17 02/26/19 06:45 Labs: Abnormal Lab Results - Last 24 Hours (Table) 02/25/19 02/25/19 02/25/19 Range/Units 11:31 16:46 20:26 Glucose (74-99) mg/dL POC Glucose (mg/dL) 176 H 138 H 127 H (75-99) mg/dL Calcium (8.4-10.2) mg/dL AST (17-59) U/L Total Protein (6.3-8.2) g/dL Albumin (3.5-5.0) g/dL 02/26/19 02/26/19 Range/Units 06:14 06:45 Glucose 106 H (74-99) mg/dL POC Glucose (mg/dL) 104 H (75-99) mg/dL Calcium 8.3 L (8.4-10.2) mg/dL AST 79 H (17-59) U/L Total Protein 5.6 L (6.3-8.2) g/dL Albumin 3.1 L (3.5-5.0) g/dL Assessment and Plan Assessment: Assessment #1 status post right hip arthroplasty #2 atrial fibrillation with RVR #3 history of paroxysmal atrial fibrillation #4 hypertension #5 dyslipidemia #6 diabetes mellitus Plan #1 continue the current medical regimen including metoprolol as well as oral anticoagulation #2 the echocardiogram was reviewed and showed normal LV function #3 the patient can be discharged home
--- NOTE | 2019-02-26 10:27 | P.PN ---
Subjective Progress Note Date: 02/26/19 Principal diagnosis: Status post direct anterior right total hip arthroplasty Patient evaluated today on the cardiac stepdown unit. Patient's heart rhythm is normal sinus at this time, he is being anticoagulated with Eliquis 5mg bid. During bandage change, the exofin tape was removed. Currently denies any chest pain or shortness of breath. Objective - Vital Signs Vital signs: Vital Signs Temp 99.0 F 02/26/19 08:00 Pulse 78 02/26/19 08:00 Resp 16 02/26/19 08:00 BP 126/77 02/26/19 08:00 Pulse Ox 99 02/26/19 08:00 Intake & Output 02/25/19 02/26/19 02/26/19 18:59 06:59 18:59 Intake Total 645 960 360 Balance 645 960 360 Weight 103.8 kg Intake: Intake, IV Titration 35 0 Amount Diltiazem 125 mg In 35 0 Sodium Chloride 0.9% 100 ml @ 5 MG/HR 5 mls/hr IV .Q24H [facility] Rx#:[id number] Lactated Ringers 1,000 ml 0 @ 0 mls/hr IV .STK-MED ONE Rx#:[id number] Lactated Ringers 1,000 ml 0 @ 20 mls/hr IV .Q24H [facility] Rx#:[id number] Lactated Ringers 1,000 ml 0 @ 80 mls/hr IV .[id number] [facility] Rx#:[id number] Oral 610 960 360 Other: Voiding Method Toilet Toilet Toilet # Voids 1 # Bowel Movements 1 - Exam Right lower extremity: Incision is clean, dry, and intact. There is minimal soft tissue swelling and ecchymosis surrounding the medial and lateral aspects of the incision. Calf is soft, no tenderness with palpation. Plantar flexion, dorsiflexion, EHL, FHL are intact. Sensory exam to light touch throughout the extremity is intact, dorsal pedis pulses 2+. - Labs CBC & Chem 7: 02/25/19 06:17 02/26/19 06:45 Labs: Abnormal Lab Results - Last 24 Hours (Table) 02/25/19 02/25/19 02/25/19 Range/Units 11:31 16:46 20:26 Glucose (74-99) mg/dL POC Glucose (mg/dL) 176 H 138 H 127 H (75-99) mg/dL Calcium (8.4-10.2) mg/dL AST (17-59) U/L Total Protein (6.3-8.2) g/dL Albumin (3.5-5.0) g/dL 02/26/19 02/26/19 Range/Units 06:14 06:45 Glucose 106 H (74-99) mg/dL POC Glucose (mg/dL) 104 H (75-99) mg/dL Calcium 8.3 L (8.4-10.2) mg/dL AST 79 H (17-59) U/L Total Protein 5.6 L (6.3-8.2) g/dL Albumin 3.1 L (3.5-5.0) g/dL Assessment and Plan Plan: Assessment: Post op day #4 status post direct anterior total hip arthroplasty Plan: Pain control, plan for discharge on Braxton 5 mg/325 mg GI and DVT prophylaxis, patient will be discharged on Eliquis Wound care instructions discussed, daily dressing changes Continue icing of the hip region Encourage incentive spirometer Continue worker physical therapy Other internist medical doctor md and recommendations Opteform dressing was placed over incision Discharge planning: Discharge to rehab today Time with Patient: Less than 30
--- NOTE | 2019-02-26 10:28 | P.DS ---
Providers Date of admission: 02/22/19 06:26 Expected date of discharge: 02/26/19 Attending physician: Marco Chi Consults: 02/22/19 09:25 Consult Physician Routine Consulting Provider: Estefany Kimble Consult Reason/Comments: Medical management Do you want consulting provider notified?: Yes Primary care physician: Estefany Kimble [facility] Course: Date of admission: 02/22/2019 Date of discharge: 02/26/2019 Admission diagnosis: Status post direct anterior right total hip arthroplasty Discharge diagnosis: Same Attending physician: Dr. Chi Surgical procedures: Direct anterior right total hip arthroplasty Brief history: Patient is a 73-year-old male with a history of progressive primary right hip osteoarthritis. At this point patient has failed conservative treatment measures and has opted to proceed with a elective direct anterior right total hip arthroplasty. Hospital course: Details of patient's surgery can be found in operative report. Patient tolerated the procedure well and was subsequently transported to orthopedic floor. Patient's orthopeidc and medical care was provided daily. Patient had daily laboratory tests performed for evaluation of overall blood counts. Patient had daily physical therapy to include strengthening range of motion as well as education with walker ambulation. Patient was treated with Lovenox for their postoperative DVT prophylaxis during their inpatient stay. Patient was noted to have a relatively uneventful postoperative course. Patient reported satisfactory pain control with oral pain medications by postoperative day 0. Patient showed satisfactory progress with physical therapy. Patient moved steadily through the program and had no difficulty meeting the goals by postoperative day 4. Given patient's otherwise satisfactory course and having met physical therapy goals, plan is to discharge patient rehab on postoperative day 4. Discharge condition/disposition: Patient will be discharged rehab in stable condition. Discharge medications: Instructions are given on resumption of patient's normal daily medications per primary care recommendation, in addition patient will be prescribed [place] 5 mg/325 mg, Colace 100 mg, Eliquis 5mg. Discharge instructions: 1. Wound care and infection precautions, keep incision dry and covered while showering, no lotions, creams, moisturizers. No soaking, tubs, pools, hottubs. Do not scrub over the incision. 2. Weight-bear as tolerated with walker / cane until follow-up. 3. Ice and elevate when necessary. Do not exceed 20 minutes per hour with ice pack. 4. Utilize compression sleeve until seen at first follow up appointment. 5. Visiting nursing care. 6. Home physical therapy. 7. Pain meds and anticoagulants per prescription. 8. Pain medication has potential to cause constipation. Increase oral fluid and fiber intake. Contact primary care provider if you have not had a bowel movement within 48 hours after discharge 9. No anti-inflammatory medication until discussed at first post operative visit, this including Motrin, Aleve, Mobic, Diclofenac. 10. Follow up in office at 2 weeks postop with Hilario Hendrix PA-C 11. Follow up with your primary care doctor 7-10 days after discharge. 12. Contact [facility] with any questions, . Procedures: Direct anterior right total hip arthroplasty Patient Condition at Discharge: Good Plan - Discharge Summary Discharge Rx Participant: No New Discharge Prescriptions: New Hydrocodone/Acetaminophen [[place] 5-325] 1 each PO Q6HR PRN #28 tab PRN Reason: Pain Apixaban [Eliquis] 5 mg PO BID #60 tab Docusate [Colace] 100 mg PO DAILY #30 capsule No Action glipiZIDE [Glucotrol] 5 mg PO AC-BID Atorvastatin Calcium [Lipitor] 10 mg PO HS Albuterol Inhaler [Ventolin Hfa Inhaler] 1 - 2 puff INHALATION RT-QID PRN PRN Reason: Shortness Of Breath Metoprolol Succinate [Toprol XL] 50 mg PO DAILY Spironolactone [Aldactone] 25 mg PO DAILY hydrALAZINE HCL [Apresoline] 10 mg PO BID Tamsulosin HCl [Flomax] 0.4 mg PO DAILY Cetirizine HCl [Zyrtec] 10 mg PO DAILY Budesonide [Pulmicort] 1 applic INHALATION RT-BID Aspirin [Dyer Aspirin EC] 81 mg PO HS Acetaminophen [Tylenol Arthritis] 1,300 mg PO BID Ipratropium-Albuterol Nebulize [Duoneb 0.5 mg-3 mg/3 ml Soln] 3 ml INHALATION RT-QID PRN PRN Reason: Shortness Of Breath Omalizumab [Xolair] 300 mg SQ Q14D Timolol 0.5% Ophth Soln [Timoptic 0.5% Ophth Soln] 1 drop BOTH EYES BID Discharge Medication List Albuterol Inhaler [Ventolin Hfa Inhaler] 1 - 2 puff INHALATION RT-QID PRN 02/20/17 [History] Atorvastatin Calcium [Lipitor] 10 mg PO HS 02/20/17 [History] Metoprolol Succinate [Toprol XL] 50 mg PO DAILY 02/20/17 [History] glipiZIDE [Glucotrol] 5 mg PO AC-BID 02/20/17 [History] Aspirin [Dyer Aspirin EC] 81 mg PO HS 08/26/18 [History] Budesonide [Pulmicort] 1 applic INHALATION RT-BID 08/26/18 [History] Cetirizine HCl [Zyrtec] 10 mg PO DAILY 08/26/18 [History] Spironolactone [Aldactone] 25 mg PO DAILY 08/26/18 [History] Tamsulosin HCl [Flomax] 0.4 mg PO DAILY 08/26/18 [History] hydrALAZINE HCL [Apresoline] 10 mg PO BID 08/26/18 [History] Acetaminophen [Tylenol Arthritis] 1,300 mg PO BID 02/11/19 [History] Ipratropium-Albuterol Nebulize [Duoneb 0.5 mg-3 mg/3 ml Soln] 3 ml INHALATION RT-QID PRN 02/11/19 [History] Omalizumab [Xolair] 300 mg SQ Q14D 02/11/19 [History] Timolol 0.5% Ophth Soln [Timoptic 0.5% Ophth Soln] 1 drop BOTH EYES BID 02/11/19 [History] Apixaban [Eliquis] 5 mg PO BID #60 tab 02/26/19 [Rx] Docusate [Colace] 100 mg PO DAILY #30 capsule 02/26/19 [Rx] Hydrocodone/Acetaminophen [[place] 5-325] 1 each PO Q6HR PRN #28 tab 02/26/19 [Rx] Follow up Appointment(s)/Referral(s): Lambert Hendrix PAC [PHYSICIAN EXTERMINATOR HELPER] - 03/10/19 2:10 pm Estefany Kimble MD [Primary Care Provider] - 03/05/19 11:30 am Activity/Diet/Wound Care/Special Instructions: Orthopedic Discharge Instructions: 1. Wound care and infection precautions, keep incision dry and covered while showering, no lotions, creams, moisturizers. No soaking, pools, hot tubs. Do not scrub over incision. 2. Weight-bear as tolerated with walker / cane until follow-up. 3. Ice and elevate when necessary. Do not exceed 20 minutes per hour with ice pack. 4. Utilize compression sleeve until seen at first follow up appointment. 5. Pain meds and anticoagulants per prescription. 6. Pain medication has potential to cause constipation. Increase oral fluid and fiber intake. Contact primary care provider if you have not had a bowel movement within 48 hours after discharge. 7. No anti-inflammatory medication until discussed at first post operative visit, this including Motrin, Aleve, Mobic, Diclofenac. 8. Follow up in office at 2 weeks postop with Hilario Hendrix PA-C 9. Follow up with your primary care doctor 7-10 days after discharge. 10. Contact [facility] with any questions, . Wound Management 1. Ok to remove opti foam silver dressing on 03/08/2019 2. After removal, lite gauze bandage is ok Discharge Disposition: TRANSFER TO SNF/ECF
== END 2019-02-26 11:52 | DRG 470 ==
LOC: 2ORMAIN 06:26 → 4SSUR 09:57 → 3SCARD 02-25 02:45
PROVIDERS: ADMIT Orthopaedic Surgery; ATTEND Orthopaedic Surgery
PROC: 0SR904A Replacement of Right Hip Joint with Ceramic on Polyethylene Synthetic Substitute, Uncemented, Open Approach (ICD-10-PCS; principal; 2019-02-22 07:30)
DX: M16.11 Unilateral primary osteoarthritis, right hip (principal); D62 Acute posthemorrhagic anemia; E11.22 Type 2 diabetes mellitus with diabetic chronic kidney disease; E78.5 Hyperlipidemia, unspecified; I12.9 Hypertensive chronic kidney disease with stage 1 through stage 4 chronic kidney disease, or unspecified chronic kidney disease; I48.0 Paroxysmal atrial fibrillation; K21.9 Gastro-esophageal reflux disease without esophagitis; N18.3 Chronic kidney disease, stage 3 (moderate); Z79.01 Long term (current) use of anticoagulants; Z79.82 Long term (current) use of aspirin; Z79.84 Long term (current) use of oral hypoglycemic drugs; Z79.899 Other long term (current) drug therapy; Z82.49 Family history of ischemic heart disease and other diseases of the circulatory system; Z87.01 Personal history of pneumonia (recurrent); Z87.891 Personal history of nicotine dependence; Z98.1 Arthrodesis status; Z88.0 Allergy status to penicillin; Z88.8 Allergy status to other drugs, medicaments and biological substances
CPT/HCPCS: 73501; 80053; 83036; 83735; 84443; 85025; 86850; 86900; 86901; 88300; 93005; 93306; 94640

== ENCOUNTER → 2020-01-28 | Outpatient (CLI) | payer MEDICARE, OTHER ==
--- NOTE | 2020-01-28 09:38 | US ---
EXAMINATION TYPE: US liver DATE OF EXAM: 01/28/2020 COMPARISON: NONE CLINICAL HISTORY: R94.5 Abnormal results of liver function studies. Abnormal labs EXAM MEASUREMENTS: Liver Length: 18.6 cm Gallbladder Wall: 0.2 cm CBD: 0.5 cm Right Kidney: 11.6 x 5.0 x 5.3 cm Large patient body habitus. This can cause limitation on the evaluation. Pancreas: wnl, tail obscured by overlying bowel gas Liver: Enlarged, heterogeneous, difficult to penetrate Gallbladder: wnl Evidence for sonographic Dempsey's sign: No CBD: wnl Right Kidney: wnl IMPRESSION: 1. No acute ultrasound abnormality. There is some limitation due to body habitus.
== END | disposition home or self-care (01) ==
LOC: RADUSWWP 08:51
PROVIDERS: ATTEND Internal Medicine
DX: R94.5 Abnormal results of liver function studies (principal)
CPT/HCPCS: 76705

== ENCOUNTER 2020-05-10 01:00 | Emergency (ER) | payer MEDICARE, OTHER ==
[2020-05-10 01:45] LABS: Basophils # (A) 0.1 k/uL (0-0.2); Basophils % (A) 2 %; Eosinophils # (A) 0.2 k/uL (0-0.7); Eosinophils % (A) 3 %; HCT 51.8 % (39.0-53.0); HGB 17.3 gm/dL (13.0-17.5); Lymphocytes # (A) 1.6 k/uL (1.0-4.8); Lymphocytes % (A) 27 %; MCH 30.8 pg (25.0-35.0); MCHC 33.3 g/dL (31.0-37.0); MCV 92.5 fL (80.0-100.0); Mean Platelet Volume 7.1; Monocytes # (A) 0.4 k/uL (0-1.0); Monocytes % (A) 7 %; Neutrophils # (A) 3.6 k/uL (1.3-7.7); Neutrophils % (A) 59 %; Platelet Count 217 k/uL (150-450); RDW 13.3 % (11.5-15.5); WBC 6.1 k/uL (3.8-10.6)
[2020-05-10 01:59] LABS: Albumin 4.1 g/dL (3.5-5.0); Calcium 9.3 mg/dL (8.4-10.2); Total Bilirubin 0.7 mg/dL (0.2-1.3); Total Protein 7.4 g/dL (6.3-8.2)
--- NOTE | 2020-05-10 02:32 | XR ---
EXAM: XR Abdomen, 2 Views CLINICAL HISTORY: ITS.REASON XR Reason: abdominal pain TECHNIQUE: Frontal view of the abdomen/pelvis with upright view of the abdomen. COMPARISON: 07/02/2017. Subsequent CT 05/10/20 available. FINDINGS: Intraperitoneal space: No free air. Gastrointestinal tract: Unremarkable. No dilation. Bones/joints: Degenerative changes of the spine. Right hip prosthesis. Other: Multiple calcifications overlying the abdomen, corresponding to nonspecific calcified nodes or nodules in the abdomen. Some may be vascular. IMPRESSION: No acute findings in the abdomen or pelvis.
--- NOTE | 2020-05-10 02:43 | CT ---
EXAM: CT Abdomen and Pelvis Without Intravenous Contrast CLINICAL HISTORY: ITS.REASON CT Reason: acute RLQ pain TECHNIQUE: Axial computed tomography images of the abdomen and pelvis without intravenous contrast. CTDI is 33.7 mGy and DLP is 1004.2 mGy-cm. This CT exam was performed using one or more of the following dose reduction techniques: automated exposure control, adjustment of the mA and/or kV according to patient size, and/or use of iterative reconstruction technique. COMPARISON: No relevant prior studies available. FINDINGS: Artifacts: Some motion artifact. Lung bases: Unremarkable. No mass. No consolidation. Pleural space: Left pleural calcifications. Heart: Coronary calcifications. Mediastinum: Small hiatal hernia. ABDOMEN: Liver: Fatty liver. Gallbladder and bile ducts: Unremarkable. No calcified stones. No ductal dilation. Pancreas: Unremarkable. No ductal dilation. Spleen: Unremarkable. No splenomegaly. Adrenals: Unremarkable. No mass. Kidneys and ureters: Nonspecific mild bilateral perinephric stranding. No obstructing stones. Stomach and bowel: Colonic diverticulosis. No obstruction. No mucosal thickening. PELVIS: Appendix: Normal appendix. Bladder: Unremarkable. No stones. Reproductive: Unremarkable as visualized. ABDOMEN and PELVIS: Intraperitoneal space: Unremarkable. No free air. No significant fluid collection. Bones/joints: Right hip prosthesis. Degenerative changes of the spine. Mild anterolisthesis of L4 on 5. No acute fracture. No dislocation. Soft tissues: Fat-containing inguinal hernias. Vasculature: Unremarkable. No abdominal aortic aneurysm. Lymph nodes: Scattered calcified nodes or nodules within the omentum/mesentery. IMPRESSION: 1. Normal appendix. 2. Colonic diverticulosis. 3. Scattered calcified nodes or nodules within the omentum/mesentery.
[2020-05-10 02:50] VITALS: RESP 18
[2020-05-10 03:20] LABS: Appearance,Urine Clear (Clear); Bilirubin,Urine Negative (Negative); Blood,Urine Negative (Negative); Color,Urine Yellow; Glucose,Urine (UA) Trace (Negative); Ketones,Urine Negative (Negative); Leukocyte Esterase,Urine Negative (Negative); Nitrite,Urine Negative (Negative); PH, Urine 5.5 (5.0-8.0); Protein,Urine Trace (Negative); Specific Gravity,Urine 1.021 (1.001-1.035); Urobilinogen,Urine <2.0 mg/dL (<2.0)
[2020-05-10 04:58] VITALS: BP 138/72; PULSE 86; TEMP 98.4
--- NOTE | 2020-06-21 00:27 | ED ---
Abdominal Pain HPI - General Chief Complaint: Abdominal Pain Stated Complaint: Abdominal Pain, diarrhea Time Seen by Provider: 05/10/20 01:19 Source: patient Mode of arrival: ambulatory Limitations: no limitations - History of Present Illness MD Complaint: abdominal pain Onset/Timin -: days(s) Location: RLQ Radiation: none Migration to: no migration Severity: mild Quality: cramping Consistency: intermittent Improves With: nothing Worsens With: nothing Associated Symptoms: diarrhea - Related Data Home Medications Medication Instructions Recorded Confirmed Albuterol Inhaler (Mhu) [Ventolin 1 - 2 puff INHALATION RT-QID PRN 02/20/17 02/22/19 Hfa Inhaler (Mhu)] Atorvastatin Calcium [Lipitor] 10 mg PO HS 02/20/17 02/22/19 Metoprolol Succinate [Toprol XL] 50 mg PO DAILY 02/20/17 02/22/19 glipiZIDE [Glucotrol] 5 mg PO AC-BID 02/20/17 02/22/19 Budesonide [Pulmicort] 1 applic INHALATION RT-BID 08/26/18 02/22/19 Cetirizine HCl [Zyrtec] 10 mg PO DAILY 08/26/18 02/22/19 Spironolactone [Aldactone] 25 mg PO DAILY 08/26/18 02/22/19 Tamsulosin HCl [Flomax] 0.4 mg PO DAILY 08/26/18 02/22/19 hydrALAZINE HCL [Apresoline] 10 mg PO BID 08/26/18 02/22/19 Ipratropium-Albuterol Nebulize 3 ml INHALATION RT-QID PRN 02/11/19 02/22/19 [Duoneb 0.5 mg-3 mg/3 ml Soln] Omalizumab [Xolair] 300 mg SQ Q14D 02/11/19 02/22/19 Timolol 0.5% Ophth Soln [Timoptic 1 drop BOTH EYES BID 02/11/19 02/22/19 0.5% Ophth Soln] Previous Rx's Medication Instructions Recorded Apixaban [Eliquis] 5 mg PO BID #60 tab 02/26/19 Docusate [Colace] 100 mg PO DAILY #30 capsule 02/26/19 Ferrous Sulfate [Iron (65 MG 325 mg PO BID #0 tab 02/26/19 Elemental)] Hydrocodone/Acetaminophen [[place] 1 each PO Q6HR PRN #28 tab 02/26/19 5-325] Ciprofloxacin HCl [Cipro] 500 mg PO Q12HR 1 Days #6 tab 05/10/20 Dicyclomine [Bentyl] 20 mg PO QID #15 tablet 05/10/20 Allergies Allergy/AdvReac Type Severity Reaction Status Date / Time codeine Allergy PROBLEMS Verified 05/10/20 01:14 WITH BLADDER Review of Systems ROS Statement: Those systems with pertinent positive or pertinent negative responses have been documented in the HPI. ROS Other: All systems not noted in ROS Statement are negative. Constitutional: Denies: fever, chills Respiratory: Denies: cough, dyspnea Cardiovascular: Denies: chest pain, palpitations, orthopnea, edema Gastrointestinal: Reports: abdominal pain, diarrhea. Denies: nausea, vomiting, constipation, melena, hematochezia Genitourinary: Denies: dysuria, hematuria, testicular pain Musculoskeletal: Denies: back pain Skin: Denies: rash Neurological: Denies: headache, weakness, numbness Past Medical History Past Medical History: Atrial Fibrillation, Diabetes Mellitus, GERD/Reflux, Hyperlipidemia, Osteoarthritis (OA), Pneumonia Additional Past Medical History / Comment(s): NEUROPATHY History of Any Multi-Drug Resistant Organisms: None Reported Past Surgical History: Adenoidectomy, Hernia Repair, Joint Replacement, Orthopedic Surgery, Tonsillectomy Additional Past Surgical History / Comment(s): NECK SURGERY X4, TOTAL LEFT KNEE, CTR BOTH HANDS, cataract removal bilat., cardiac cath 03/2016 Past Anesthesia/Blood Transfusion Reactions: No Reported Reaction Past Psychological History: No Psychological Hx Reported Smoking Status: Former smoker Past Alcohol Use History: None Reported Past Drug Use History: None Reported - Past Family History Father Family Medical History: Pulmonary Embolus Additional Family Medical History / Comment(s): from PE in his 50s Mother Family Medical History: Coronary Artery Disease (CAD), Hypertension General Exam Limitations: no limitations General appearance: alert, in no apparent distress Head exam: Present: atraumatic, normocephalic Eye exam: Present: normal appearance. Absent: scleral icterus, conjunctival injection ENT exam: Present: normal oropharynx Respiratory exam: Present: normal lung sounds bilaterally. Absent: respiratory distress, wheezes, rales, rhonchi, stridor Cardiovascular Exam: Present: regular rate, normal rhythm, normal heart sounds. Absent: systolic murmur, diastolic murmur, rubs, gallop GI/Abdominal exam: Present: soft, tenderness (There is mild right lower quadrant tenderness without rebound or guarding), normal bowel sounds. Absent: distended, guarding, rebound, rigid, mass, pulsatile mass, hernia Extremities exam: Present: normal inspection, normal capillary refill. Absent: pedal edema, calf tenderness Back exam: Present: normal inspection. Absent: CVA tenderness (R), CVA tenderness (L) Neurological exam: Present: alert Skin exam: Present: warm, dry, intact, normal color. Absent: rash Course Vital Signs 05/10/20 05/10/20 05/10/20 01:11 02:45 04:00 Temperature 98.3 F 98.3 F 98.5 F Pulse Rate 73 78 82 Respiratory 20 18 18 Rate Blood Pressure 184/113 140/65 146/72 O2 Sat by Pulse 96 98 97 Oximetry 05/10/20 04:50 Temperature 98.4 F Pulse Rate 86 Respiratory 18 Rate Blood Pressure 138/72 O2 Sat by Pulse 96 Oximetry Medical Decision Making - Medical Decision Making This patient is a 75-year-old man presenting with mild right lower quadrant abdominal pain and few episodes of diarrhea. Did have mild tenderness and therefore CT obtained which does not reveal definite etiology. The patient is not able to give a stool specimen here for additional studies. Through his course in emergency department he was feeling a little better. Discussed admission for observation, the patient was feeling a little better and wanted to go home and follow as outpatient. Discussed appropriate follow-up as well as return parameters. - Lab Data Result diagrams: 05/10/20 01:22 05/10/20 01:22 Lab Results 05/10/20 05/10/20 05/10/20 Range/Units 01:22 01:22 01:22 WBC 6.1 (3.8-10.6) k/uL RBC 5.60 (4.30-5.90) m/uL Hgb 17.3 (13.0-17.5) gm/dL Hct 51.8 (39.0-53.0) % MCV 92.5 (80.0-100.0) fL MCH 30.8 (25.0-35.0) pg MCHC 33.3 (31.0-37.0) g/dL RDW 13.3 (11.5-15.5) % Plt Count 217 (150-450) k/uL Neutrophils % 59 % Lymphocytes % 27 % Monocytes % 7 % Eosinophils % 3 % Basophils % 2 % Neutrophils # 3.6 (1.3-7.7) k/uL Lymphocytes # 1.6 (1.0-4.8) k/uL Monocytes # 0.4 (0-1.0) k/uL Eosinophils # 0.2 (0-0.7) k/uL Basophils # 0.1 (0-0.2) k/uL Sodium 134 L (137-145) mmol/L Potassium 5.0 (3.5-5.1) mmol/L Chloride 106 (98-107) mmol/L Carbon Dioxide 20 L (22-30) mmol/L Anion Gap 8 mmol/L BUN 22 H (9-20) mg/dL Creatinine 1.40 H (0.66-1.25) mg/dL Est GFR (CKD-EPI)AfAm 57 (>60 ml/min/1.73 sqM) Est GFR (CKD-EPI)NonAf 49 (>60 ml/min/1.73 sqM) Glucose 144 H (74-99) mg/dL Calcium 9.3 (8.4-10.2) mg/dL Total Bilirubin 0.7 (0.2-1.3) mg/dL AST 43 (17-59) U/L ALT 36 (4-49) U/L Alkaline Phosphatase 95 (38-126) U/L C-Reactive Protein (<10.0) mg/L Total Protein 7.4 (6.3-8.2) g/dL Albumin 4.1 (3.5-5.0) g/dL Amylase 81 (30-110) U/L Lipase 263 (23-300) U/L Urine Color Yellow Urine Appearance Clear (Clear) Urine pH 5.5 (5.0-8.0) Ur Specific [place] 1.021 (1.001-1.035) Urine Protein Trace H (Negative) Urine Glucose (UA) Trace H (Negative) Urine Ketones Negative (Negative) Urine Blood Negative (Negative) Urine Nitrite Negative (Negative) Urine Bilirubin Negative (Negative) Urine Urobilinogen <2.0 (<2.0) mg/dL Ur Leukocyte Esterase Negative (Negative) 05/10/20 Range/Units 01:22 WBC (3.8-10.6) k/uL RBC (4.30-5.90) m/uL Hgb (13.0-17.5) gm/dL Hct (39.0-53.0) % MCV (80.0-100.0) fL MCH (25.0-35.0) pg MCHC (31.0-37.0) g/dL RDW (11.5-15.5) % Plt Count (150-450) k/uL Neutrophils % % Lymphocytes % % Monocytes % % Eosinophils % % Basophils % % Neutrophils # (1.3-7.7) k/uL Lymphocytes # (1.0-4.8) k/uL Monocytes # (0-1.0) k/uL Eosinophils # (0-0.7) k/uL Basophils # (0-0.2) k/uL Sodium (137-145) mmol/L Potassium (3.5-5.1) mmol/L Chloride (98-107) mmol/L Carbon Dioxide (22-30) mmol/L Anion Gap mmol/L BUN (9-20) mg/dL Creatinine (0.66-1.25) mg/dL Est GFR (CKD-EPI)AfAm (>60 ml/min/1.73 sqM) Est GFR (CKD-EPI)NonAf (>60 ml/min/1.73 sqM) Glucose (74-99) mg/dL Calcium (8.4-10.2) mg/dL Total Bilirubin (0.2-1.3) mg/dL AST (17-59) U/L ALT (4-49) U/L Alkaline Phosphatase (38-126) U/L C-Reactive Protein 8.8 (<10.0) mg/L Total Protein (6.3-8.2) g/dL Albumin (3.5-5.0) g/dL Amylase (30-110) U/L Lipase (23-300) U/L Urine Color Urine Appearance (Clear) Urine pH (5.0-8.0) Ur Specific [place] (1.001-1.035) Urine Protein (Negative) Urine Glucose (UA) (Negative) Urine Ketones (Negative) Urine Blood (Negative) Urine Nitrite (Negative) Urine Bilirubin (Negative) Urine Urobilinogen (<2.0) mg/dL Ur Leukocyte Esterase (Negative) Disposition Clinical Impression: Abdominal pain, Diarrhea Disposition: HOME SELF-CARE Condition: Good Instructions (If sedation given, give patient instructions): Acute Diarrhea (ED), Abdominal Pain (ED) Prescriptions: Dicyclomine [Bentyl] 20 mg PO QID #15 tablet Ciprofloxacin HCl [Cipro] 500 mg PO Q12HR 1 Days #6 tab Is patient prescribed a controlled substance at d/c from ED?: No Referrals: Estefany Kimble MD [Primary Care Provider] - 1-2 days
== END 2020-05-10 04:50 | disposition home or self-care (01) ==
LOC: EC 01:00
DX: R10.31 Right lower quadrant pain (principal); R19.7 Diarrhea, unspecified; R10.813 Right lower quadrant abdominal tenderness; I48.91 Unspecified atrial fibrillation; E78.5 Hyperlipidemia, unspecified; K21.9 Gastro-esophageal reflux disease without esophagitis; E11.40 Type 2 diabetes mellitus with diabetic neuropathy, unspecified; Z79.51 Long term (current) use of inhaled steroids; Z79.84 Long term (current) use of oral hypoglycemic drugs; Z79.899 Other long term (current) drug therapy; Z88.5 Allergy status to narcotic agent; Z87.891 Personal history of nicotine dependence
CPT/HCPCS: 36415; 74018; 74176; 80053; 81003; 82150; 83690; 85025; 86140; 99284

== ENCOUNTER 2021-04-15 19:22 | Emergency (ER) | payer MEDICARE, OTHER ==
--- NOTE | 2021-04-15 19:45 | ED ---
General Adult HPI - General Chief complaint: Extremity Problem,Nontraumatic Stated complaint: poss dvt Time Seen by Provider: 04/15/21 19:34 Source: patient Mode of arrival: wheelchair Limitations: no limitations - History of Present Illness Initial comments: Dictation was produced using [employer] dictation software. please excuse any grammatical, word or spelling errors. Chief Complaint: 75-year-old male presents with posterior right knee pain History of Present Illness: Is 75-year-old male presents to the emergency department for her posterior right knee pain. Patient states he is currently moving to [place]. He was doing a lot of work packing boxes in preparation for moving to [place]. He states that today he noticed he had some pain behind his right knee. Patient takes coagulation medications for atrial fibrillation. Never has had a PE or DVT in the past. Patient states it's worse with dorsiflexion at the right ankle. No fevers. Pain not exacerbated with standing. He is accompanied by his daughter today. The ROS documented in this emergency department record has been reviewed and confirmed by me. Those systems with pertinent positive or negative responses have been documented in the HPI. All other systems are other negative and/or noncontributory. PHYSICAL EXAM: General Impression: Alert and oriented x3, not in acute distress HEENT: Normocephalic atraumatic, extra-ocular movements intact, pupils equal and reactive to light bilaterally, mucous membranes moist. Cardiovascular: Heart regular rate and rhythm Right knee: No gross deformity, pain in the popliteal area, no calf tenderness, no medial thigh tenderness, neurovascularly intact, no knee effusion Psych: Normal affect and mood ED course: 75-year-old male presents emergency department for one day of right popliteal pain. vital signs upon arrival are within acceptable limits. The venous thrombosis right lower extremity is highly unlikely given that patient has been on anticoagulation medications for one year. Ultrasound of the right lower extremity shows no evidence of DVT. No other abnormalities noted. Clinical presentation likely calf strain. Patient altered with minimal consultations. Patient discharged. - Related Data Home Medications Medication Instructions Recorded Confirmed Albuterol Inhaler (Mhu) [Ventolin 1 - 2 puff INHALATION RT-QID PRN 02/20/17 02/22/19 Hfa Inhaler (Mhu)] Atorvastatin Calcium [Lipitor] 10 mg PO HS 02/20/17 02/22/19 Metoprolol Succinate [Toprol XL] 50 mg PO DAILY 02/20/17 02/22/19 glipiZIDE [Glucotrol] 5 mg PO AC-BID 02/20/17 02/22/19 Budesonide [Pulmicort] 1 applic INHALATION RT-BID 08/26/18 02/22/19 Cetirizine HCl [Zyrtec] 10 mg PO DAILY 08/26/18 02/22/19 Spironolactone [Aldactone] 25 mg PO DAILY 08/26/18 02/22/19 Tamsulosin HCl [Flomax] 0.4 mg PO DAILY 08/26/18 02/22/19 hydrALAZINE HCL [Apresoline] 10 mg PO BID 08/26/18 02/22/19 Ipratropium-Albuterol Nebulize 3 ml INHALATION RT-QID PRN 02/11/19 02/22/19 [Duoneb 0.5 mg-3 mg/3 ml Soln] Omalizumab [Xolair] 300 mg SQ Q14D 02/11/19 02/22/19 Timolol 0.5% Ophth Soln [Timoptic 1 drop BOTH EYES BID 02/11/19 02/22/19 0.5% Ophth Soln] Previous Rx's Medication Instructions Recorded Apixaban [Eliquis] 5 mg PO BID #60 tab 02/26/19 Docusate [Colace] 100 mg PO DAILY #30 capsule 02/26/19 Ferrous Sulfate [Iron (65 MG 325 mg PO BID #0 tab 02/26/19 Elemental)] Hydrocodone/Acetaminophen [[place] 1 each PO Q6HR PRN #28 tab 02/26/19 5-325] Ciprofloxacin HCl [Cipro] 500 mg PO Q12HR 1 Days #6 tab 05/10/20 Dicyclomine [Bentyl] 20 mg PO QID #15 tablet 05/10/20 Allergies Allergy/AdvReac Type Severity Reaction Status Date / Time codeine Allergy PROBLEMS Verified 04/15/21 19:26 WITH BLADDER Review of Systems ROS Statement: Those systems with pertinent positive or pertinent negative responses have been documented in the HPI. ROS Other: All systems not noted in ROS Statement are negative. Past Medical History Past Medical History: Atrial Fibrillation, Diabetes Mellitus, GERD/Reflux, Hyperlipidemia, Osteoarthritis (OA), Pneumonia Additional Past Medical History / Comment(s): NEUROPATHY History of Any Multi-Drug Resistant Organisms: None Reported Past Surgical History: Adenoidectomy, Hernia Repair, Joint Replacement, Orthopedic Surgery, Tonsillectomy Additional Past Surgical History / Comment(s): NECK SURGERY X4, TOTAL LEFT KNEE, CTR BOTH HANDS, cataract removal bilat., cardiac cath 03/2016 Past Anesthesia/Blood Transfusion Reactions: No Reported Reaction Past Psychological History: No Psychological Hx Reported Smoking Status: Former smoker Past Alcohol Use History: None Reported Past Drug Use History: None Reported - Past Family History Father Family Medical History: Pulmonary Embolus Additional Family Medical History / Comment(s): from PE in his 50s Mother Family Medical History: Coronary Artery Disease (CAD), Hypertension General Exam Limitations: no limitations Course Vital Signs 04/15/21 04/15/21 19:26 19:44 Temperature 98.5 F 98.4 F Pulse Rate 77 78 Respiratory 16 18 Rate Blood Pressure 150/67 141/73 O2 Sat by Pulse 96 97 Oximetry Disposition Clinical Impression: Calf pain Disposition: HOME SELF-CARE Condition: Good Instructions (If sedation given, give patient instructions): Knee Pain (ED) Is patient prescribed a controlled substance at d/c from ED?: No Referrals: Estefany Kimble MD [Primary Care Provider] - 1-2 days
[2021-04-15 19:46] VITALS: BP 141/73; PULSE 78; RESP 18; TEMP 98.4
--- NOTE | 2021-04-15 20:35 | US ---
EXAMINATION TYPE: US venous doppler duplex LE RT DATE OF EXAM: 04/15/2021 8:18 PM COMPARISON: NONE CLINICAL HISTORY: popliteal pain. Popliteal pain. No injury. On blood thinners. No redness. No sw elling. SIDE PERFORMED: Right TECHNIQUE: The lower extremity deep venous system is examined utilizing real time linear array sonog joselin with graded compression, doppler sonography and color-flow sonography. VESSELS IMAGED: Common Femoral Vein Deep Femoral Vein Greater Saphenous Vein * Femoral Vein Popliteal Vein Small Saphenous Vein * Proximal Calf Veins (* superficial vessels) Right Leg: Negative for DVT IMPRESSION: No evidence of deep vein thrombosis in the right leg.
== END 2021-04-15 20:48 | disposition home or self-care (01) ==
LOC: EC 19:22
DX: M79.661 Pain in right lower leg (principal); M25.561 Pain in right knee; E11.9 Type 2 diabetes mellitus without complications; E78.5 Hyperlipidemia, unspecified; I48.91 Unspecified atrial fibrillation; K21.9 Gastro-esophageal reflux disease without esophagitis; M19.90 Unspecified osteoarthritis, unspecified site; Z87.891 Personal history of nicotine dependence; Z79.01 Long term (current) use of anticoagulants; Z79.51 Long term (current) use of inhaled steroids; Z79.84 Long term (current) use of oral hypoglycemic drugs
CPT/HCPCS: 99283